=== PATIENT | female | born 1965 | race Caucasian/White ===

== ENCOUNTER → 2022-10-01 11:45 | Outpatient (BNVA) | payer BC, MEDICAID, SELFPAY | PROVIDERS: PCP Family Medicine; Visit Provider Family Medicine | DX: F31.9 Bipolar disorder, unspecified (principal); M54.31 Sciatica, right side; M54.32 Sciatica, left side; Z11.59 Encounter for screening for other viral diseases; Z11.4 Encounter for screening for human immunodeficiency virus [HIV] | CPT/HCPCS: 80053; 80061; 83036; 84443; 85025; 86038; 86803; 87806 ==

== ENCOUNTER → 2022-11-10 08:25 | Outpatient (BNVA) | payer BC, MEDICAID, SELFPAY | PROVIDERS: PCP Family Medicine; Visit Provider Internal Medicine Rheumatology | DX: Z79.899 Other long term (current) drug therapy (principal); M19.90 Unspecified osteoarthritis, unspecified site; R10.9 Unspecified abdominal pain; M45.6 Ankylosing spondylitis lumbar region; Z11.59 Encounter for screening for other viral diseases; M54.41 Lumbago with sciatica, right side; K12.0 Recurrent oral aphthae; M54.42 Lumbago with sciatica, left side; G89.29 Other chronic pain; L71.0 Perioral dermatitis | CPT/HCPCS: 36415; 73130; 73562; 73630; 82607; 82728; 82746; 85651; 86140; 86200; 86431; 86480; 86704; 86812; 87340 ==

== ENCOUNTER → 2022-11-24 09:48 | Outpatient (BNVA) | payer BC, MEDICAID, SELFPAY | PROVIDERS: PCP Family Medicine; Visit Provider Family Medicine | DX: R79.89 Other specified abnormal findings of blood chemistry (principal) | CPT/HCPCS: 82306; 84439; 84443 ==

== ENCOUNTER 2022-12-01 06:08 | Outpatient (CLI) | payer BC, MEDICAID, SELFPAY ==
--- NOTE | 2022-12-01 06:30 | US_ITS ---
WS: [id number] ULTRASOUND ABDOMEN CLINICAL INFORMATION: R10.9 - Unspecified abdominal pain COMPARISON: None. FINDINGS: Liver Size: Upper limits of normal Craniocaudal length: 14.9 cm. Echogenicity: Normal. Surface nodularity: None. Mass (size and location): Echogenic lesion in the RIGHT hepatic lobe measuring 1.2 x 1.8 x 0.7 cm lik nikky incidental cavernous hemangioma. Bile ducts Intrahepatic ducts: Normal. Common bile duct diameter: 1.0 cm dilated. Gallbladder Removed Pancreas Not well seen Spleen Splenomegaly: None. Craniocaudal length: 11.2 cm. Right kidney: A few punctate echogenic foci may represent tiny calculi. No evidence of obstruction. Hydronephrosis: None. Size: 10.2 cm x 5.5 cm x 4.3 cm Left kidney: A few punctate echogenic foci may represent tiny calculi. No evidence of obstruction. Hydronephrosis: None. Size: 10.1 cm x 5.1 cm x 5.1 cm. Abdominal aorta and IVC Visualized portions are normal. Ascites: None. US/US abdomen complete* [id number] IMPRESSION: 1. Prior cholecystectomy. 2. Dilated common bile duct measuring 10 mm. This can be further evaluated wit h MRCP to assess for choledocholithiasis. Correlation for biliary function stud ies. 3. No hydronephrosis in either kidney. 4. A few tiny punctate echogenic foci in the renal parenchyma may represent no nobstructing calculi. This can be further evaluated with CT renal stone protoco l if indicated. 5. Normal spleen. 6. Liver size upper limits of normal. 7. Echogenic lesion in the RIGHT hepatic lobe measuring 1.2 x 1.8 x 0.7 cm lik nikky incidental cavernous hemangioma.
== END 2022-12-01 06:09 | disposition home or self-care (01) ==
LOC: RAD 06:09
PROVIDERS: PCP Family Medicine; Visit Provider Internal Medicine Rheumatology
DX: K83.8 Other specified diseases of biliary tract (principal); R10.9 Unspecified abdominal pain
CPT/HCPCS: 36415; 73130; 73562; 73630; 76700; 82607; 82728; 82746; 85651; 86140; 86200; 86431; 86480; 86704; 86812; 87340

== ENCOUNTER 2022-12-06 12:32 | Outpatient (CLI) | payer BC, MEDICAID, SELFPAY ==
--- NOTE | 2022-12-06 12:46 | MR_ITS ---
WS: [id number] MRI CERVICAL SPINE NONCONTRAST TECHNIQUE: Sagittal T1, T2 and STIR imaging. Axial T2, gradient, and fiesta imaging. CLINICAL INFORMATION: SPONDYLOSIS, CERVICAL REGION COMPARISON: None. FINDINGS: Mild cervical curve. Disc bulging worse at C5-C6 with a small central protrusion with slight indentat ion on cervical cord. Cord signal is normal. C2-C3: Normal. C3-C4: Mild facet arthropathy. Mild LEFT and no significant RIGHT foraminal narrowing. Spinal canal i s patent. C4-C5: No significant disc bulging. Mild facet arthropathy. Mild LEFT foraminal narrowing. C5-C6: Shallow central disc protrusion with small annular fissure. Indentation on cervical cord with mild to moderate central canal stenosis. Moderate LEFT greater than RIGHT bony foraminal narrowing. M ild to moderate facet arthropathy. C6-C7: Mild disc osteophytic ridging. Mild bilateral bony foraminal narrowing. Mild facet arthropathy . Spinal canal is patent. C7-T1: Osteophytic ridging. Moderate LEFT and no significant RIGHT foraminal narrowing. Spinal canal is patent. T1-T2: Osteophytic ridging. Moderate LEFT and mild RIGHT bony foraminal narrowing. Mild facet arthrop athy. Visualized brain stem structures: Normal. Prevertebral soft tissues: Normal. MR/MR cervical spin wo con* [id number] IMPRESSION: 1. Prominent central disc protrusion C5-C6 with indentation on the cervical co rd with mild to moderate central canal stenosis. Small annular fissure. 2. Moderate bilateral C5-C6 bony foraminal narrowing LEFT greater than RIGHT. 3. Moderate LEFT C7-T1 and T1-T2 bony foraminal narrowing.
--- NOTE | 2022-12-06 12:47 | MR_ITS ---
WS: [id number] MRI LUMBAR SPINE NONCONTRAST TECHNIQUE: Sagittal T1, T2 and STIR imaging. Axial T1 and T2 imaging. CLINICAL INFORMATION: SPONDYLOSIS, LUMBAR COMPARISON: None. FINDINGS: Mild lumbar curve. No acute compression. No high-grade central canal stenosis. Mild disc bulging wors e L5-S1. L1-L2: Mild facet arthropathy. Spinal canal and foramen are patent. L2-L3: Mild facet arthropathy. Spinal canal and foramen are patent. L3-L4: Mild annular bulging with slight effacement of the ventral thecal sac. Mild bilateral foramina l narrowing. Mild facet arthropathy. Spinal canal is patent. L4-L5: Mild annular bulging with slight impingement on the traversing RIGHT greater than LEFT L5 nerv e roots. Mild RIGHT foraminal narrowing. Mild facet arthropathy. L5-S1: Shallow central disc protrusion with mild central canal stenosis. Slight impingement traversin g LEFT greater than RIGHT S1 nerve roots. Mild facet arthropathy. Tiny annular fissure. Mild RIGHT fo raminal narrowing. Visualized pelvic bony structures: Normal. Paravertebral soft tissues: Normal. Small central disc protrusion the cervical spine timber robber imaging at C5-C6 with slight contact of the ce rvical cord. MR/MR lumbar spine wo con* [id number] IMPRESSION: 1. Mild lumbar curve. No acute compression. 2. Shallow central disc protrusion L5-S1 with a small annular fissure. Slight impingement traversing LEFT greater than RIGHT S1 nerve roots. 3. Mild RIGHT L5-S1 foraminal narrowing. 4. Mild bilateral L3-L4 foraminal narrowing with small foraminal protrusions. 5. Mild RIGHT greater than LEFT L4-L5 foraminal narrowing. 6. Small central disc protrusion the cervical spine timber robber imaging at C5-C6 wit h slight contact of the cervical cord.
== END 2022-12-06 12:33 | disposition home or self-care (01) ==
LOC: RAD 12:32
PROVIDERS: PCP Family Medicine; Visit Provider Anesthesiology
DX: M47.812 Spondylosis without myelopathy or radiculopathy, cervical region (principal); M50.30 Other cervical disc degeneration, unspecified cervical region; M51.37 Other intervertebral disc degeneration, lumbosacral region; M47.27 Other spondylosis with radiculopathy, lumbosacral region
CPT/HCPCS: 72141; 72148

== ENCOUNTER 2022-12-23 14:41 | Outpatient (CLI) | payer BC, MEDICAID, SELFPAY ==
--- NOTE | 2022-12-23 15:15 | MR_ITS ---
WS: [id number] MRI HEAD WITH CONTRAST TECHNIQUE: Sagittal T1, T2 axial, T2 axial FLAIR, axial susceptibility weighted imaging, axial diffus ion weighted images, and coronal T2 images were obtained. Pre and post-T1 axial and post T1 coronal i mages. ADC and FSPGR images. CLINICAL INFORMATION: R51.9 - Headache, unspecified COMPARISON: None. FINDINGS: No evidence of restricted diffusion to suggest acute ischemia. Ventricular system and basal cisterns are patent. No suspicious intracranial signal abnormalities. Normal yu-white differentiation. No si gnificant parenchymal volume loss. Normal posterior fossa. Normal vascular flow voids at the skull base. No extra-axial fluid collection s. No evidence of mass or mass effect. Paranasal sinuses and mastoid air cells well aerated. Normal p osterior nasopharynx and parapharyngeal fat. No hemosiderin on the susceptibly weighted images. Normal optic chiasm and pituitary infundibulum. Proximal 7th and 8th cranial nerves appear normal. No rmal cavernous sinuses and Meckel's cave. Temporal lobes and hippocampal formations are normal in aleksey earance. No abnormal gadolinium enhancement. Incidental benign enhancing venous angioma in the LEFT f rontal lobe. Normal visualized dural venous sinuses. MR/MR head wo/w con [id number] IMPRESSION: 1. No evidence of restricted diffusion to suggest acute ischemia. 2. No suspicious intracranial signal abnormalities. No significant parenchymal volume loss. 3. No hemosiderin on susceptibly weighted images. 4. Incidental benign venous angioma LEFT frontal lobe. 5. No abnormal areas of enhancement. 6. No other suspicious findings.
== END 2022-12-23 14:42 | disposition home or self-care (01) ==
PROVIDERS: PCP Family Medicine; Visit Provider Psychiatry & Neurology Neurology
DX: R51.9 Headache, unspecified (principal); D18.02 Hemangioma of intracranial structures
CPT/HCPCS: 70553; A9577

== ENCOUNTER → 2023-01-19 12:05 | Outpatient (BNVA) | payer BC, MEDICAID, SELFPAY | PROVIDERS: PCP Family Medicine; Visit Provider Family Medicine | DX: R79.89 Other specified abnormal findings of blood chemistry (principal); K21.9 Gastro-esophageal reflux disease without esophagitis; M54.31 Sciatica, right side; M54.32 Sciatica, left side; E83.52 Hypercalcemia | CPT/HCPCS: 80048; 82607; 82746; 83690; 83735; 84100; 84439; 84443 ==

== ENCOUNTER → 2023-02-15 11:22 | Outpatient (BNVA) | payer BC, MEDICAID, SELFPAY | PROVIDERS: PCP Family Medicine; Visit Provider Family Medicine | DX: R39.11 Hesitancy of micturition (principal) | CPT/HCPCS: 81000; 87086 ==

== ENCOUNTER 2023-03-22 15:37 | Outpatient (CLI) | payer MEDICAID, SELFPAY ==
--- NOTE | 2023-03-22 16:03 | XRR_ITS ---
PROCEDURE INFORMATION: Exam: XR Right Tibia and Fibula Exam date and time: 03/22/2023 4:10 PM Age: 57 years old Clinical indication: Other: Right lower leg nodule TECHNIQUE: Imaging protocol: Radiologic exam of the right tibia and fibula. Views: 2 views. COMPARISON: CR XR foot RT min 3V* [id number] 11/10/2022 10:51 AM FINDINGS: Bones/joints: Normal. Soft tissues: Normal. XR/XR tibia fibula RT 2V [id number] IMPRESSION: No acute findings.
[2023-03-22 16:22] LABS: Eosinophils # 0.2 10^3/uL (0.0-0.8); Eosinophils % 4.3 %; Hematocrit 38.8 % (36-47); Lymphocytes # 1.5 10^3/uL (0.8-4.8); Lymphocytes % 38.1 %; Mean Corpuscular HGB Conc 31.4 g/dL (30-55); Mean Corpuscular Hemoglobin 27.9 pg (27-33); Mean Corpuscular Volume 88.8 fl (85-98); Mean Platelet Volume 11.1 fL (7.4-10.4); Monocytes # 0.3 10^3/uL (0.2-0.9); Monocytes % 8.6 %; Neutrophils # 1.89 10^3/uL (1.8-7.7); Neutrophils % 47.7 %; Nucleated Red Blood Cells % 0 %; Platelet Count 177 10^3/cmm (157-399); Red Blood Count 4.37 10^6/uL (3.85-5.65); Red Cell Distribution Width 13.7 % (12.1-15.1); White Blood Count 3.96 10^3/uL (3.29-11.43)
[2023-03-22 16:38] LABS: Alanine Aminotransferase 10 U/L (0-33); Albumin Level 3.7 g/dL (3.5-5.2); Alkaline Phosphatase 114 U/L (35-105); Aspartate Amino Transferase 17 U/L (0-32); Globulin 2.5 g/dL (1.3-4.6); Total Bilirubin 0.3 mg/dL (0.15-1.2); Total Protein 6.2 g/dL (6.6-8.7)
== END 2023-03-22 15:38 | disposition home or self-care (01) ==
PROVIDERS: Absent Provider Internal Medicine Rheumatology; PCP Family Medicine; Visit Provider Family Medicine
DX: R22.41 Localized swelling, mass and lump, right lower limb (principal); M19.90 Unspecified osteoarthritis, unspecified site; Z79.899 Other long term (current) drug therapy
CPT/HCPCS: 36415; 73590; 80076; 82565; 83690; 84439; 84443; 85025; 86140

== ENCOUNTER → 2023-05-05 08:51 | Outpatient (BNVA) | payer BC, MEDICAID, SELFPAY | PROVIDERS: PCP Family Medicine; Visit Provider Nurse Practitioner Family | DX: R10.9 Unspecified abdominal pain (principal) | CPT/HCPCS: 81000 ==

== ENCOUNTER → 2023-08-29 14:29 | Outpatient (BNVA) | payer BC, SELFPAY | PROVIDERS: PCP Family Medicine; Visit Provider Family Medicine | DX: Z79.899 Other long term (current) drug therapy (principal); R79.89 Other specified abnormal findings of blood chemistry; E03.9 Hypothyroidism, unspecified; M19.90 Unspecified osteoarthritis, unspecified site; K90.9 Intestinal malabsorption, unspecified; E55.9 Vitamin D deficiency, unspecified | CPT/HCPCS: 80053; 80061; 82306; 82607; 82728; 82746; 83036; 83540; 84439; 84443; 85025; 85651 ==

== ENCOUNTER → 2023-10-27 10:59 | Outpatient (BNVA) | payer BC, MEDICAID, SELFPAY | PROVIDERS: PCP Family Medicine; Referring Provider Psychiatry & Neurology Neurology; Visit Provider Student in an Organized Health Care Education/Training Program | DX: G56.03 Carpal tunnel syndrome, bilateral upper limbs; G56.22 Lesion of ulnar nerve, left upper limb | CPT/HCPCS: 73110 ==

== ENCOUNTER 2023-11-07 08:56 | Day surgery (SDC) | payer MEDICARE, MEDICAID, SELFPAY ==
[2023-11-07] VITALS (8 sets, daily range): BP systolic 111–163; BP diastolic 71–108; PULSE 80–111; RESP 12–18; TEMP 36.4–36.8; O2SAT 91–98; BMI 30.7
[2023-11-07] MEDS: sodium chloride 0.9% 1,000 ML 30 ML IV (09:19)
[2023-11-07] MEDS: acetaminophen 1,000 MG/100 ML PIGGYBACK 400 MG IV (09:44)
[2023-11-07] MEDS: ketorolac 30 mg/mL INJ IVP (09:45)
[2023-11-07] MEDS: scopolamine 1.5 Patch 1 PATCH TRANSDERMA (09:51)
--- NOTE | 2023-11-07 10:00 | ANES.PREANE2 ---
Pre-Anesthetic Assessment Height/Weight: Height 1.65 m Weight 83.915 kg Temp Pulse Resp BP Pulse Ox O2 Del Method 98.2 F 111 H 18 111/72 97 Room Air 11/07/23 09:19 11/07/23 09:19 11/07/23 09:19 11/07/23 09:19 11/07/23 09:19 11/07/23 09:20 Operation Date: 11/07/23 13:55 Proposed Procedures p Carpal Tunnel Release(Right) - Kapil Marin DO Last intake: Intake Last Liquid Date 11/06/23 Last Liquid Time 19:00 Last Solid Date 11/06/23 Last Solid Time 19:00 Social No tobacco Exam alert, oriented x 3, clear to auscultation bilaterally and regular rate & rhythm Airway Submandibular: within normal limits Cervical ROM: within normal limits Mallampati: Class I Dentition: full None reported GI None reported Musc/skel Lower Back Pain and Osteoarthritis/DJD Anesthetic Plan ASA status: 3 Anesthesia: MAC Medications/Allergies Home Medications Medication Instructions Recorded Confirmed Last Taken Type buprenorphine HCl 8 mg sublingual 8 mg sublingual DAILY 09/24/22 11/07/23 11/07/23 History tablet topiramate 100 mg tablet 100 mg PO BID #60 tabs 10/12/22 11/07/23 11/07/23 Rx valbenazine 80 mg capsule 80 mg PO DAILY 11/01/22 11/07/23 11/07/23 History (Ingrezza) cholecalciferol (vitamin D3) 25 25 mcg PO DAILY #90 caps 12/02/22 11/07/23 11/06/23 Rx mcg (1,000 unit) capsule gabapentin 300 mg capsule 300 mg PO TID 01/18/23 11/07/23 11/07/23 History sucralfate 1 gram tablet (Carafate) 1 g PO BID #60 tabs 01/19/23 11/07/23 Unknown Rx valacyclovir 500 mg tablet 500 mg PO BID #20 tabs 03/22/23 11/07/23 Unknown Rx (Valtrex) cyclobenzaprine 10 mg tablet 10 mg PO TID 05/05/23 11/07/23 11/07/23 History leflunomide 20 mg tablet 20 mg PO DAILY #90 tabs 08/04/23 11/07/2324 Rx cariprazine 3 mg capsule (Vraylar) 3 mg PO DAILY #30 caps 08/08/23 11/07/23 11/06/23 Rx sulfasalazine 500 mg tablet 1 g (2 x 500 mg) PO BID #120 tabs 08/23/23 11/07/23 11/07/23 Rx atogepant 60 mg tablet (Qulipta) 60 mg PO DAILY #60 tabs 09/21/23 11/04/23 11/06/23 Rx diclofenac sodium 75 mg 75 mg PO BID PRN pain #60 tabs 11/04/23 11/07/23 11/04/23 Rx tablet,delayed release duloxetine 60 mg capsule,delayed 60 mg PO DAILY 11/04/23 11/07/23 11/06/23 History release levothyroxine 75 mcg tablet 75 mcg PO DAILY 11/04/23 11/07/23 11/07/23 History ondansetron HCl 8 mg tablet 8 mg PO DAILY 11/04/23 11/07/23 11/07/23 History pantoprazole 40 mg tablet,delayed 40 mg PO DAILY 11/04/23 11/07/23 11/07/23 History release prednisone 20 mg tablet See Rx Instructions .Route .COMPLEX 11/04/23 11/07/23 11/06/23 History ondansetron 4 mg disintegrating 4 mg PO Q8H PRN nausea and 11/07/23 Unknown Rx tablet vomiting 3 days #9 tabs tramadol 50 mg tablet 50 mg PO Q6H PRN pain #20 tabs 11/07/23 Unknown Rx Allergies Allergy/AdvReac Type Severity Reaction Status Date / Time azithromycin Allergy Mild ALGY-Rash Verified 11/04/23 12:42 mirtazapine [From Remeron] Allergy Mild ALGY-Rash Verified 11/04/23 12:42 tolmetin Allergy ALGY-Rash Verified 11/04/23 12:42 Current Medications Generic Name Dose Route Start Last Admin Trade Name Freq PRN Reason Stop Dose Admin Sodium Chloride 1,000 mls @ 30 mls/hr 11/07/23 09:15 11/07/23 09:19 Sodium Chloride 0.9% IV 11/08/23 09:14 30 mls/hr .Q24H KATH Administration PFSH Anesthesia Medical History Chronic pancreatitis Seronegative rheumatoid arthritis of both hands MDD (major depressive disorder) POD (perioral dermatitis) Inflammatory arthritis Depression with anxiety Joint pain High risk medication use Psychiatric care Surgical History History of hysterectomy History of cholecystectomy H/O gastric bypass History of shoulder surgery bilateral History of tonsillectomy and adenoidectomy Family History Mother Cancer Breast Cancer Migraines Grandmother Cancer Colon Other Chronic kidney disease (CKD) Diabetes Hyperlipidemia Hypertension Lung disease Rheumatoid arthritis Stroke Denies family history of Lupus CAD (coronary artery disease) Psoriatic arthritis Social History Smoking and tobacco/nicotine status: never used tobacco/nicotine Second hand smoke exposure: No Alcohol intake: never Substance/Drug Use: current Substance/Drug use frequency: few times a week Other substance/drug use details: Gummies Female Reproductive History Spontaneous abortions: No Data Anesthesia Cardiac Studies: No Data to Display
--- NOTE | 2023-11-07 10:51 | W.PM.OPSUD ---
Surgery/Procedure H&P Update DATE OF PROCEDURE: November 07, 2023 DATE H&P PERFORMED: 10/26/23 H&P UPDATE INFORMATION: I have reviewed H&P completed within last 30 days, I have examined patient prior to procedure and No changes to prior documentation PREOP DIAGNOSIS: Right carpal tunnel syndrome PRIMARY INDICATION FOR PROCEDURE: Right carpal tunnel syndrome PLANNED PROCEDURE: Operation Date: 11/07/23 13:55 Proposed Procedures p Carpal Tunnel Release(Right) - Kapil Marin DO
[2023-11-07] MEDS: ceFAZolin 2,000 MG in sodium chloride 0.9% (plus) 50 ML 100 MG IV (11:23)
[2023-11-07] MEDS: lidocaine-epi 1% PF 1:200,000 30 mL SDV INJECTION (11:40)
[2023-11-07] MEDS: ROPivacaine 0.5% SDV 30 mL 150 MG INJECTION (11:40)
--- NOTE | 2023-11-07 11:58 | P.BOP_ITS ---
Date of Procedure: [Nov 07 2023] Surgeon: [Dr. Marin DO] Account Services Specialist(s): [Claudio Marin PA-C] Procedure(s) performed: [Right carpal tunnel release] Findings of the procedure(s): [Right carpal tunnel syndrome] Estimated blood loss: [2 mL] Specimen(s) removed: [n/a] Post-operative diagnosis: [Right carpal tunnel syndrome]
--- NOTE | 2023-11-07 12:04 | P.OP_ITS ---
Operative Report Date of procedure: November 07, 2023 Surgeon: Kapil Marin DO Step Down Specialist: Claudio Marin PA-C: PA was necessary for assistance in this case with hand positioning to execute the procedure, retraction and protection of neurovascular structures as well as to assist with wound closure and dressing application. Procedure: Preoperative diagnosis: Right carpal tunnel syndrome post-op diagnosis: Same Procedure done: 1.?Right carpal tunnel release Surgeon: Kapil Marin DO Anesthesia: MAC (Local) Estimated blood?loss: [2mL Tourniquet time 4 minutes IV fluids: See anesthesia record Complications: None Findings: See operative report narrative Condition: stable Disposition: same day Brief History: Patient is a pleasant 58 year-old female?with?Right carpal tunnel syndrome.? Patient has been worked up in the outpatient setting findings and physical examination consistent with this.? Patient nerve?conduction studies consistent with carpal tunnel syndrome.? We detailed?out?patient's risk benefits complication alternatives with surgical and?nonsurgical treatment options. Through shared decision making, patient?agrees to proceed with surgical intervention of the?Right carpal tunnel release .? Patient understands and agrees with current plan.? All questions answered.? Patient elects to proceed with surgical intervention with carpal tunnel release. Procedure: Patient seen and evaluated in the preoperative holding area.? Consent was reviewed and signed with patient.? Correct extremity was marked.? Patient was seen evaluated by the anesthesia department once cleared for surgery was brought back to the operative suite.? Patient was kept on [facility] in supine position all bony prominences were well-padded patient properly secured to the bed.??Right upper extremity was then placed onto an armboard.? A nonsterile tourniquet was applied to the?Right upper arm.? Patient underwent anesthesia per the anesthesia department.? Patient's?Right upper extremity was then prepped and draped in standard orthopedic fashion.? Final timeout performed.? Patient received appropriate preoperative antibiotics. Under sterile aseptic technique patient received?local anesthesia over the preplanned carpal tunnel incision site. Esmarch was used to exsanguinate the?Right upper extremity and tourniquet was insufflated to 250 mmHg. A standard mini open?Right carpal tunnel incision was made.? Starting distally at Grey's cardinal?line in?line with the fourth ray extending proximally distal to the wrist crease centered over the carpal tunnel.? Sharp scalpel incision was made through skin and subcutaneous tissue.? Self-retaining retractor was placed and the palmar fascia was identified.? This was then split?longitudinally and direct visualization of the transverse carpal?ligament was then made.? I then utilizing scalpel feathered through the transverse carpal?ligament until I entered the floor of the transverse carpal tunne l?ligament into the carpal tunnel.? Next I switched to dissection scissors and completed my release of the transverse carpal?ligament distally with care to protect the recurrent motor branch.? I completely released into the palmar fat and until no entrapment was noted distally.? Care was made to protect the superficial palmar arch during my distal dissection.? Nasal speculum placed proximally to protect soft tissue on top of the transverse carpal ligament for direct visualization. Next I then placed a [place] underneath the transverse carpal tunnel?ligament to protect the contents of the carpal tunnel and subsequently utilizing dissection scissors under?loupe magnification completely released the transverse carpal?ligament proximally into the median antebrachial fascia.? Care was made to protect the palmar cutaneous branch by keeping my scissors curved ulnarly.? Once completely released, I then placed my [place] and had appropriate decompression of the carpal tunnel proximally as well as distally.? I then inspected the contents of the carpal tunnel which showed an hourglass shape of the median nerve showing its compression.? No masses were noted.? Tendons appeared healthy.? Wound was then thoroughly irrigated.? Tourniquet deflated.? Hemostasis satisfactory with bipolar electrocautery.? I then closed the incision with interrupted nylon stitches.? Xeroform 4 x 4's and a bulky soft dressing was applied to the?Right upper extremity.? Patient was then awakened from anesthesia and taken to PACU in stable condition.? Patient tolerated procedure without complications. Disposition: Patient taken to PACU in stable condition recovering well.? Dressing clean dry and intact.? Patient will receive appropriate discharge instructions as well as pain medication postoperatively.? Patient to follow-up with me in the office in 2 weeks.? They understand they may be weightbearing as tolerated to the?Right hand.? Patient should keep incision clean dry and intact.? Patient understands if any questions or concerns may contact the office.
--- NOTE | 2023-11-07 13:43 | ANE.PACU2 ---
Inpatient post-anesthesia follow up: Vital signs: Temperature 98.0 F Pulse Rate 80 Respiratory Rate 18 Blood Pressure 161/108 Pulse Oximetry 95 Oxygen Delivery Me thod Room Air Oxygen Flow Rate 6 Fraction of Inspir ed Oxygen Hydration adequate: Yes Nausea and vomiting: No Pain level: controlled Mental status: Baseline Additional Comments: no apparent anesthetic complications noted
== END 2023-11-07 13:00 | disposition home or self-care (01) ==
PROVIDERS: PCP Family Medicine; Visit Provider Student in an Organized Health Care Education/Training Program
PROC: (CPT 64721; principal; 2023-11-07 13:45)
DX: G56.01 Carpal tunnel syndrome, right upper limb (principal)
CPT/HCPCS: 64721; J0131; J0690; J1885; J2405; J2704; J2795; J3010; J7030

== ENCOUNTER 2024-01-17 08:17 | Outpatient (CLI) | payer MEDICARE, MEDICAID, SELFPAY ==
[2024-01-17 08:50] LABS: Basophils # 0.1 10^3/uL (0.0-0.1); Basophils % 1.2 %; Eosinophils # 0.2 10^3/uL (0.0-0.8); Eosinophils % 4.4 %; Hematocrit 30.8 % (36-47); Lymphocytes # 1.4 10^3/uL (0.8-4.8); Mean Corpuscular HGB Conc 32.1 g/dL (30-55); Mean Corpuscular Hemoglobin 39.6 pg (27-33); Mean Corpuscular Volume 123.2 fl (85-98); Mean Platelet Volume 10.3 fL (7.4-10.4); Monocytes # 0.3 10^3/uL (0.2-0.9); Monocytes % 7.3 %; Neutrophils # 2.13 10^3/uL (1.8-7.7); Neutrophils % 51.9 %; Nucleated Red Blood Cells % 0 %; Platelet Count 197 10^3/cmm (157-399); Red Cell Distribution Width 16.3 % (12.1-15.1); White Blood Count 4.11 10^3/uL (3.29-11.43)
[2024-01-17 09:13] LABS: Alanine Aminotransferase < 5 U/L (0-33); Albumin Level 3.4 g/dL (3.5-5.2); Alkaline Phosphatase 113 U/L (35-105); Aspartate Amino Transferase 12 U/L (0-32); Globulin 2.4 g/dL (1.3-4.6); Glomerular Filtration Rate 74.2 mL/min (90-130); Total Bilirubin 0.5 mg/dL (0.15-1.2); Total Protein 5.8 g/dL (6.6-8.7)
== END 2024-01-17 08:18 | disposition home or self-care (01) ==
LOC: LAB 08:20
PROVIDERS: PCP Family Medicine; Visit Provider Internal Medicine Rheumatology
DX: Z79.899 Other long term (current) drug therapy (principal); M06.041 Rheumatoid arthritis without rheumatoid factor, right hand; M06.042 Rheumatoid arthritis without rheumatoid factor, left hand
CPT/HCPCS: 36415; 80076; 82565; 85025; 86140

== ENCOUNTER → 2024-01-23 11:38 | Outpatient (BNVA) | payer MEDICARE, MEDICAID, SELFPAY | PROVIDERS: PCP Family Medicine; Visit Provider Internal Medicine Rheumatology | DX: M54.41 Lumbago with sciatica, right side (principal); M54.42 Lumbago with sciatica, left side; G89.29 Other chronic pain; L71.0 Perioral dermatitis; M06.041 Rheumatoid arthritis without rheumatoid factor, right hand; M06.042 Rheumatoid arthritis without rheumatoid factor, left hand; R76.8 Other specified abnormal immunological findings in serum; M79.7 Fibromyalgia; R53.82 Chronic fatigue, unspecified; Z11.1 Encounter for screening for respiratory tuberculosis; Z11.59 Encounter for screening for other viral diseases; Z79.899 Other long term (current) drug therapy | CPT/HCPCS: 99214 ==

== ENCOUNTER → 2024-02-07 15:32 | Outpatient (BNVA) | payer MEDICARE, SELFPAY | PROVIDERS: PCP Family Medicine; Visit Provider Family Medicine | DX: E03.9 Hypothyroidism, unspecified (principal); K90.9 Intestinal malabsorption, unspecified; Z79.899 Other long term (current) drug therapy; R79.89 Other specified abnormal findings of blood chemistry | CPT/HCPCS: 82533; 82728; 83540; 84439; 84443; 85025 ==

== ENCOUNTER → 2024-02-16 12:35 | Outpatient (BNVA) | payer MEDICARE, OTHER, SELFPAY | PROVIDERS: PCP Family Medicine; Referring Provider Family Medicine; Visit Provider Student in an Organized Health Care Education/Training Program | DX: D64.9 Anemia, unspecified (principal); R10.13 Epigastric pain; R13.10 Dysphagia, unspecified; K21.9 Gastro-esophageal reflux disease without esophagitis; Z90.49 Acquired absence of other specified parts of digestive tract; Z80.0 Family history of malignant neoplasm of digestive organs | CPT/HCPCS: 99204 ==

== ENCOUNTER → 2024-02-21 14:55 | Outpatient (BNVA) | payer MEDICARE, OTHER, SELFPAY | PROVIDERS: PCP Family Medicine; Visit Provider Family Medicine | DX: K90.9 Intestinal malabsorption, unspecified (principal); G24.01 Drug induced subacute dyskinesia | CPT/HCPCS: 82607; 82746; 85025 ==

== ENCOUNTER 2024-02-25 15:30 | Emergency (ER) | payer MEDICARE, MEDICAID, SELFPAY ==
[2024-02-25 15:49] VITALS: BP 116/83; PULSE 93; RESP 18; TEMP 36.8; O2SAT 98; BMI 29.4
--- NOTE | 2024-02-25 16:04 | CTR_ITS ---
PROCEDURE INFORMATION: Exam: CT Abdomen And Pelvis With Contrast Exam date and time: 02/25/2024 5:02 PM Age: 58 years old Clinical indication: Abdominal pain; Generalized; Prior surgery; Surgery date: 6+ months; Surgery type: Gastric bypass; Additional info: Abd pain TECHNIQUE: Imaging protocol: Computed tomography of the abdomen and pelvis with contrast. Radiation optimization: All CT scans at this facility use at least one of these dose optimization techniques: automated exposure control; mA and/or kV adjustment per patient size (includes targeted exams where dose is matched to clinical indication); or iterative reconstruction. Contrast material: OMNI 350; Contrast volume: 100 ml; Contrast route: INTRAVENOUS (IV); COMPARISON: US abdomen complete* [id number] 12/01/2022 6:23 AM RADIATION DOSE METRICS: Total DLP (mGy-cm): 721.43 FINDINGS: Lungs: Subsegmental bibasilar atelectasis. The visualized lung bases are otherwise grossly clear. Diaphragm: No evidence of diaphragmatic defect. Liver: No focal hepatic lesion. Gallbladder and biliary ducts: Status post cholecystectomy. Mild-moderate intrahepatic biliary dilatation. There is moderate extrahepatic biliary dilatation, frequently seen post cholecystectomy. CBD measures up to 14 mm. No evidence of intraductal stone. Pancreas: Scribed peg tube Spleen: Unremarkable. Adrenal glands: Unremarkable. Kidneys and ureters: Multiple nonobstructive renal stones bilaterally measuring up to 5 mm on the left. Otherwise no renal parenchymal abnormality. No hydronephrosis or ureteral stone. Stomach and bowel: No evidence of bowel obstruction or perienteric inflammatory changes. Postsurgical changes compatible with prior Titi-en-Y gastric bypass. Appendix: The appendix is not visualized, however there are no findings to suggest appendicitis. Intraperitoneal space: No evidence of free air or fluid collection. Vasculature: No aneurysmal dilatation or dissection of the abdominal aorta. The celiac trunk, SMA and GUILLAUME are grossly patent. No evidence of IVC thrombus. The portal vein, SMV and splenic veins are grossly patent. Lymph nodes: No adenopathy. Urinary bladder: Grossly unremarkable. Reproductive: Prior hysterectomy. Bones/joints: No evidence of acute fracture or aggressive osseous lesion. Soft tissues: No evidence of fluid collection or hematoma in the superficial soft tissues. Surgical metallic densities noted in the pelvis. Correlation with procedural history is recommended. CT/CT abdomen pelvis w con* [id number] IMPRESSION: 1. No evidence of acute abnormality in the abdomen or pelvis. 2. Prior cholecystectomy with mild-moderate intrahepatic and moderate extrahepatic biliary dilatation. Consider correlation with biliary labs. 3. Nonobstructive renal stones.
--- NOTE | 2024-02-25 16:06 | ED_ITS ---
Documented by User: Eris Sanches DO 02/27/24 05:54 HPI - GI Bleed 2 General: Chief complaint: GI Bleed Stated complaint: stomach pain, black stools, losing blood Time Seen by Provider: 02/25/24 16:03 History of Present Illness: 58-year-old female presents to the [facility] ency room with complaints of weakness and shortness of breath dark stools this been going on for the last week. She complaining of stomach pain as well. Patient has a history of a Titi-en-Y surgery that was done a couple of decades ago in [place]. While she was still in [place] she did have a upper GI bleed along one of her anastomosis. She did not require surgery at that time was treated medically. She denies any hematochezia or hematemesis. Associated symptoms: Reports abdominal pain; Denies chills, fever(s) or rash Related Data Home Medications Medication Instructions Recorded Confirmed buprenorphine HCl 8 mg sublingual 8 mg sublingual DAILY 09/24/22 02/21/24 tablet cyclobenzaprine 10 mg tablet 10 mg PO TID 05/05/23 02/21/24 ondansetron HCl 8 mg tablet 8 mg PO DAILY 11/04/23 02/21/24 prednisone 20 mg tablet See Rx Instructions .Route .COMPLEX 11/04/23 02/21/24 gabapentin 300 mg capsule 300 mg PO BID 01/23/24 02/21/24 Previous Rx's Medication Instructions Recorded topiramate 100 mg tablet 100 mg PO BID #60 tabs 10/12/22 cholecalciferol (vitamin D3) 25 25 mcg PO DAILY #90 caps 12/02/22 mcg (1,000 unit) capsule sucralfate 1 gram tablet (Carafate) 1 g PO BID #60 tabs 01/19/23 valacyclovir 500 mg tablet 500 mg PO BID #20 tabs 03/22/23 (Valtrex) atogepant 60 mg tablet (Qulipta) 60 mg PO DAILY #60 tabs 09/21/23 levothyroxine 75 mcg tablet See Rx Instructions .Route 01/13/24 .COMPLEX #60 tabs pantoprazole 40 mg tablet,delayed See Rx Instructions .Route 01/13/24 release .COMPLEX #180 tabs diclofenac sodium 75 mg 75 mg PO BID PRN pain #60 tabs 01/20/24 tablet,delayed release leflunomide 20 mg tablet 20 mg PO DAILY #90 tabs 01/23/24 prednisone 5 mg tablet 5 mg PO DAILY #90 tabs 01/23/24 sulfasalazine 500 mg tablet 1 g (2 x 500 mg) PO BID #120 tabs 01/23/24 valbenazine 80 mg capsule 80 mg PO DAILY #30 caps 02/01/24 (Ingrezza) cariprazine 1.5 mg capsule 1.5 mg PO DAILY #30 caps 02/06/24 (Vraylar) duloxetine 60 mg capsule,delayed 60 mg PO DAILY #30 caps 02/06/24 release cyanocobalamin (vitamin B-12) 100 mcg (0.1 mL) IM DAILY #10 mL 02/21/24 1,000 mcg/mL injection solution syringe with needle, safety 3 mL #100 ea 02/21/24 25 gauge x 5/8 (Monoject Safety Syringes) Allergies Allergy/AdvReac Type Severity Reaction Status Date / Time azithromycin Allergy Mild ALGY-Rash Verified 02/21/24 14:15 mirtazapine [From Remeron] Allergy Mild ALGY-Rash Verified 02/21/24 14:15 tolmetin Allergy ALGY-Rash Verified 02/21/24 14:15 Review of Systems 2 Const: Denies: fever(s) or chills Card: Denies: chest pain Resp: Denies: dyspnea GI: Reports: abdominal pain and melena : Denies: dysuria, urinary frequency or urinary urgency Musc: Denies: neck pain or back pain Skin/Breast: Denies: rash PFSH ED 2 PFSH: Medical History Tardive dyskinesia Chronic pancreatitis Seronegative rheumatoid arthritis of both hands MDD (major depressive disorder) POD (perioral dermatitis) Inflammatory arthritis Depression with anxiety Joint pain High risk medication use Psychiatric care Surgical History History of hysterectomy History of cholecystectomy H/O gastric bypass History of shoulder surgery bilateral History of tonsillectomy and adenoidectomy Family History Mother Cancer Breast Cancer Migraines Grandmother Cancer Colon Other Chronic kidney disease (CKD) Diabetes Hyperlipidemia Hypertension Lung disease Rheumatoid arthritis Stroke Denies family history of Lupus CAD (coronary artery disease) Psoriatic arthritis Social History Smoking and tobacco/nicotine status: never used tobacco/nicotine Second hand smoke exposure: No Alcohol intake: never Substance/Drug Use: current Substance/Drug use frequency: few times a week Other substance/drug use details: Gummies Female Reproductive History: Spontaneous abortions: No Physical Exam 2 Const: GENERAL APPEARANCE: cooperative ORIENTATION/CONSCIOUSNESS: Yes awake, Yes oriented to person, Yes oriented to place and Yes oriented to time HENMT: COMMON NORMALS: normocephalic, atraumatic and hearing grossly normal bilaterally HEAD & SCALP: normocephalic and atraumatic Resp: COMMON NORMALS: normal respiratory effort, No retractions, No use of accessory muscles and clear to auscultation bilaterally AUSCULTATION: clear to auscultation bilaterally Cardio: COMMON NORMALS: regular rate, regular rhythm and No murmurs present (Cardio) RATE: regular rate RHYTHM: regular rhythm GI: COMMON NORMALS: No hepatosplenomegaly present AUSCULTATION: Yes normoactive bowel sounds PALPATION: Yes Tenderness to palpation present (GI) (Epigastric), No Guarding due to palpation present (GI) and Yes No hepatosplenomegaly present OTHER: Rectal exam done with nurse present normal external rectal sphincter tone no hemorrhoids noted Hemoccult on the stool was negative Extremity: COMMON NORMALS: normal to inspection, capillary refill normal, no clubbing, cyanosis or edema, no calf tenderness and no pedal edema Neuro: SENSORIUM/ORIENTATION: Yes oriented to person, Yes oriented to place and Yes oriented to time Skin: COMMON NORMALS: no rashes or lesions noted GENERAL SKIN EXAM: no rashes or lesions noted Course 2 Vital Signs: Vital signs: Vital Signs Temperature 98.3 F 02/25/24 19:31 Pulse Rate 87 02/25/24 19:31 Respiratory Rate 18 02/25/24 19:31 Blood Pressure 135/85 02/25/24 19:31 Pulse Oximetry 97 02/25/24 19:31 Oxygen Delivery Me thod Room Air 02/25/24 16:54 MDM - GI Bleed Medical Decision Making Care signed out to Dr. Caceres at change of shift. See final notes for diagnosis and disposition. Patient is checked out at shift change. Vitals are stable here. She is not on oxygen. Hemoglobin is stable at 8.3 from 8.6 a couple of days ago. Her Hemoccult is negative on rectal exam. BMP is normal. Liver enzymes are not remarkable. Her MCV is quite high at 135. Abdominal CT reveals no source of bleeding. No fluid collection. She is significantly symptomatic with her anemia. She gets shortness of breath on exertion, etc.I spoke with our hospitalist team. With stable hemoglobin from 2 days ago, hemoglobin above 7 and a noncardiac patient, Hemoccult negative, there is no definitive intervention from an inpatient standing. Patient has an outpatient scope scheduled in 10 days or so. She is stable for discharge. She will follow-up with her PCP this coming week. Lab Data 02/25/24 16:23 02/25/24 16:23 Radiology Impressions Abdomen/Pelvis CT 02/25/24 16:04 IMPRESSION: 1. No evidence of acute abnormality in the abdomen or pelvis. 2. Prior cholecystectomy with mild-moderate intrahepatic and moderate extrahepatic biliary dilatation. Consider correlation with biliary labs. 3. Nonobstructive renal stones. Laboratory Results WBC 3.84 10^3/uL (3.29-11.43) 02/25/24 16:23 RBC 1.93 10^6/uL (3.85-5.65) L 02/25/24 16:23 Hgb 8.30 g/dL (11.27-16.99) L 02/25/24 16:23 Hct 26.1 % (36-47) L 02/25/24 16:23 MCV 135.2 fl (85-98) H 02/25/24 16:23 MCH 43.0 pg (27-33) H 02/25/24 16:23 MCHC 31.8 g/dL (30-55) 02/25/24 16:23 RDW 20.0 % (12.1-15.1) H 02/25/24 16:23 Plt Count 191 10^3/cmm (157-399) 02/25/24 16:23 MPV 10.1 fL (7.4-10.4) 02/25/24 16:23 Neut % (Auto) 62.0 % 02/25/24 16:23 Lymph % (Auto) 28.1 % 02/25/24 16:23 [place] % (Auto) 6.3 % 02/25/24 16:23 Eos % (Auto) 2.1 % 02/25/24 16:23 Baso % (Auto) 1.0 % 02/25/24 16:23 Neut # (Auto) 2.38 10^3/uL (1.8-7.7) 02/25/24 16:23 Lymph # (Auto) 1.1 10^3/uL (0.8-4.8) 02/25/24 16:23 [place] # (Auto) 0.2 10^3/uL (0.2-0.9) 02/25/24 16:23 Eos # (Auto) 0.1 10^3/uL (0.0-0.8) 02/25/24 16:23 Baso # (Auto) 0.0 10^3/uL (0.0-0.1) 02/25/24 16: Nucleated RBC % (auto) 1.0 % 02/25/24 16: Nucleated RBCs # 0.0 /100WBC 02/25/24 16:23 PT 12.70 SECONDS (12.1-14.9) 02/25/24 16:23 INR 0.93 (0.8-1.2) 02/25/24 16:23 APTT 26.5 SECONDS (23.9-36.7) 02/25/24 16:23 Sodium 137 mmol/L (136-145) 02/25/24 16:23 Potassium 3.9 mmol/L (3.5-5.1) 02/25/24 16:23 Chloride 104 mmol/L (98-107) 02/25/24 16:23 Carbon Dioxide 20 mmol/L (22-29) L 02/25/24 16:23 Anion Gap 16.9 (5-19) 02/25/24 16:23 BUN 7 mg/dL (6-20) 02/25/24 16:23 Creatinine 0.9 mg/dL (0.5-0.9) 02/25/24 16:23 GFR Calculation 64.8 mL/min (90-130) L 02/25/24 16:23 Glucose 89 mg/dL (65-115) 02/25/24 16:23 Calculated Osmolality 281 mOsm/kg (285-295) L 02/25/24 16:23 Calcium 8.4 mg/dL (8.5-10.5) L 02/25/24 16:23 Total Bilirubin 0.5 mg/dL (0.15-1.2) 02/25/24 16:23 AST 11 U/L (0-32) 02/25/24 16:23 ALT 6 U/L (0-33) 02/25/24 16:23 Alkaline Phosphatase 109 U/L (35-105) H 02/25/24 16:23 Total Protein 5.7 g/dL (6.6-8.7) L 02/25/24 16:23 Albumin 3.5 g/dL (3.5-5.2) 02/25/24 16:23 Globulin 2.2 g/dL (1.3-4.6) 02/25/24 16:23 Urine Color Yellow (Yellow) 02/25/24 17:23 Urine Appearance Clear (CLEAR) 02/25/24 17:23 Urine pH 6.5 (5-7) 02/25/24 17:23 Ur Specific [place] 1.028 (1.005-1.030) 02/25/24 17:23 Urine Protein Negative (Negative) 02/25/24 17:23 Urine Glucose (UA) Negative (Normal) 02/25/24 17:23 Urine Ketones Negative (Negative) 02/25/24 17:23 Urine Blood Negative (Negative) 02/25/24 17:23 Urine Nitrate Negative (Negative) 02/25/24 17:23 Urine Bilirubin Negative (Negative) 02/25/24 17:23 Urine Urobilinogen 1.0 mg/dL (Negative) 02/25/24 17:23 Ur Leukocyte Esterase Trace (Negative) A 02/25/24 17:23 Urine RBC 0-2 /hpf (0-2) 02/25/24 17:23 Urine WBC 0-5 /hpf (0-5) 02/25/24 17:23 Ur Squamous Epith Cells 6-10 /hpf (0-5) 02/25/24 17:23 Amorphous Sediment Not Reportable 02/25/24 17:23 Urine Bacteria 1+ /hpf (NONE) H 02/25/24 17:23 Hyaline Casts 2.05 /lpf 02/25/24 17:23 Discharge Plan Discharge Patient Disposition: Home Clinical Impression: Anemia Condition: Stable Prescriptions: No Action buprenorphine HCl 8 mg tablet, sublingual 8 mg sublingual DAILY sucralfate [Carafate] 1 gram tablet 1 g PO BID Qty: 60 2RF cyclobenzaprine 10 mg tablet 10 mg PO TID gabapentin 300 mg capsule 300 mg PO BID leflunomide 20 mg tablet 20 mg PO DAILY Qty: 90 1RF sulfasalazine 500 mg tablet 1 g PO BID Qty: 120 5RF Rx Instructions: take with food prednisone 5 mg tablet 5 mg PO DAILY Qty: 90 1RF duloxetine 60 mg capsule,delayed release(DR/EC) 60 mg PO DAILY Qty: 30 2RF Rx Instructions: take 1 capsule BY MOUTH EVERY DAY Vraylar 1.5 mg capsule 1.5 mg PO DAILY Qty: 30 2RF valacyclovir [Valtrex] 500 mg tablet 500 mg PO BID Qty: 20 5RF Rx Instructions: Take one tab twice a day at onset of symptoms. Qulipta 60 mg tablet 60 mg PO DAILY Qty: 60 2RF cyanocobalamin (vitamin B-12) 1,000 mcg/mL solution 100 mcg IM DAILY Qty: 10 1RF Rx Instructions: Daily x 1 week, then every other day x 2 weeks, weekly x 1 month, then monthly. (DME) Monoject Safety Syringes 3 mL 25 gauge x 5/8 syringe See Rx Instructions .Route Qty: 100 0RF Rx Instructions: As directed topiramate 100 mg tablet 100 mg PO BID Qty: 60 5RF cholecalciferol (vitamin D3) 25 mcg (1,000 unit) capsule 25 mcg PO DAILY Qty: 90 0RF levothyroxine 75 mcg tablet See Rx Instructions .ROUTE .COMPLEX Qty: 60 2RF Dose Instruction: TAKE 1 TABLET BY MOUTH EVERY DAY Rx Instructions: TAKE 1 TABLET BY MOUTH EVERY DAY pantoprazole 40 mg tablet,delayed release (DR/EC) See Rx Instructions .ROUTE .COMPLEX Qty: 180 1RF Dose Instruction: TAKE ONE TABLET BY MOUTH TWICE DAILY Rx Instructions: TAKE ONE TABLET BY MOUTH TWICE DAILY diclofenac sodium 75 mg tablet,delayed release (DR/EC) 75 mg PO BID PRN (Reason: pain) Qty: 60 1RF Hold Instructions: Resume on 11/11/23. Ingrezza 80 mg capsule 80 mg PO DAILY Qty: 30 2RF ondansetron HCl 8 mg tablet 8 mg PO DAILY Rx Instructions: TAKE ONE TABLET BY MOUTH DAILY prednisone 20 mg tablet See Rx Instructions .ROUTE .COMPLEX Rx Instructions: 20 mg orally ;TAKE 2 TABLETS BY MOUTH EVERY DAY FOR SEVEN DAYS NEEDED FOR joint pain flare Discharge Orders: Discharge ED (Routine); Ordered 02/25/24 Ordered By: Elvin Caceres Referrals: Salvatore Medeiros DO [Primary Care Provider] - 1-3 days Patient Instructions: Anemia (ED), Opioid Safety, Pain Management Activity Restrictions/Additional Instructions: You should have your hemoglobin repeated Tuesday morning. Return immediately for worsening shortness of breath, blood in the stool or vomitus, development of chest pain, other concerning symptoms. See your doctor at the beginning of the week if possible. Coding Level of Care Code ED Emergency Care Attendant for Chg Fwd Documented by User: Elvin Caceres DO 02/25/24 19:25 HPI - GI Bleed 2 General: Chief complaint: GI Bleed Stated complaint: stomach pain, black stools, losing blood Time Seen by Provider: 02/25/24 16:03 Related Data Home Medications Medication Instructions Recorded Confirmed buprenorphine HCl 8 mg sublingual 8 mg sublingual DAILY 09/24/22 02/21/24 tablet cyclobenzaprine 10 mg tablet 10 mg PO TID 05/05/23 02/21/24 ondansetron HCl 8 mg tablet 8 mg PO DAILY 11/04/23 02/21/24 prednisone 20 mg tablet See Rx Instructions .Route .COMPLEX 11/04/23 02/21/24 gabapentin 300 mg capsule 300 mg PO BID 01/23/24 02/21/24 Previous Rx's Medication Instructions Recorded topiramate 100 mg tablet 100 mg PO BID #60 tabs 10/12/22 cholecalciferol (vitamin D3) 25 25 mcg PO DAILY #90 caps 12/02/22 mcg (1,000 unit) capsule sucralfate 1 gram tablet (Carafate) 1 g PO BID #60 tabs 01/19/23 valacyclovir 500 mg tablet 500 mg PO BID #20 tabs 03/22/23 (Valtrex) atogepant 60 mg tablet (Qulipta) 60 mg PO DAILY #60 tabs 09/21/23 levothyroxine 75 mcg tablet See Rx Instructions .Route 01/13/24 .COMPLEX #60 tabs pantoprazole 40 mg tablet,delayed See Rx Instructions .Route 01/13/24 release .COMPLEX #180 tabs diclofenac sodium 75 mg 75 mg PO BID PRN pain #60 tabs 01/20/24 tablet,delayed release leflunomide 20 mg tablet 20 mg PO DAILY #90 tabs 01/23/24 prednisone 5 mg tablet 5 mg PO DAILY #90 tabs 01/23/24 sulfasalazine 500 mg tablet 1 g (2 x 500 mg) PO BID #120 tabs 01/23/24 valbenazine 80 mg capsule 80 mg PO DAILY #30 caps 02/01/24 (Ingrezza) cariprazine 1.5 mg capsule 1.5 mg PO DAILY #30 caps 02/06/24 (Vraylar) duloxetine 60 mg capsule,delayed 60 mg PO DAILY #30 caps 02/06/24 release cyanocobalamin (vitamin B-12) 100 mcg (0.1 mL) IM DAILY #10 mL 02/21/24 1,000 mcg/mL injection solution syringe with needle, safety 3 mL #100 ea 02/21/24 25 gauge x 5/8 (Monoject Safety Syringes) Allergies Allergy/AdvReac Type Severity Reaction Status Date / Time azithromycin Allergy Mild ALGY-Rash Verified 02/21/24 14:15 mirtazapine [From Remeron] Allergy Mild ALGY-Rash Verified 02/21/24 14:15 tolmetin Allergy ALGY-Rash Verified 02/21/24 14:15 PFSH ED 2 PFSH: Medical History Tardive dyskinesia Chronic pancreatitis Seronegative rheumatoid arthritis of both hands MDD (major depressive disorder) POD (perioral dermatitis) Inflammatory arthritis Depression with anxiety Joint pain High risk medication use Psychiatric care Surgical History History of hysterectomy History of cholecystectomy H/O gastric bypass History of shoulder surgery bilateral History of tonsillectomy and adenoidectomy Family History Mother Cancer Breast Cancer Migraines Grandmother Cancer Colon Other Chronic kidney disease (CKD) Diabetes Hyperlipidemia Hypertension Lung disease Rheumatoid arthritis Stroke Denies family history of Lupus CAD (coronary artery disease) Psoriatic arthritis Social History Smoking and tobacco/nicotine status: never used tobacco/nicotine Second hand smoke exposure: No Alcohol intake: never Substance/Drug Use: current Substance/Drug use frequency: few times a week Other substance/drug use details: Gummies Course 2 Vital Signs: Vital signs: Vital Signs Temperature 98.3 F 02/25/24 19:31 Pulse Rate 87 02/25/24 19:31 Respiratory Rate 18 02/25/24 19:31 Blood Pressure 135/85 02/25/24 19:31 Pulse Oximetry 97 02/25/24 19:31 Oxygen Delivery Me thod Room Air 02/25/24 16:54 MDM - GI Bleed Medical Decision Making Patient is checked out at shift change. Vitals are stable here. She is not on oxygen. Hemoglobin is stable at 8.3 from 8.6 a couple of days ago. Her Hemoccult is negative on rectal exam. BMP is normal. Liver enzymes are not remarkable. Her MCV is quite high at 135. Abdominal CT reveals no source of bleeding. No fluid collection. She is significantly symptomatic with her anemia. She gets shortness of breath on exertion, etc.I spoke with our hospitalist team. With stable hemoglobin from 2 days ago, hemoglobin above 7 and a noncardiac patient, Hemoccult negative, there is no definitive intervention from an inpatient standing. Patient has an outpatient scope scheduled in 10 days or so. She is stable for discharge. She will follow-up with her PCP this coming week. Lab Data 02/25/24 16:23 02/25/24 16:23 Radiology Impressions Abdomen/Pelvis CT 02/25/24 16:04 IMPRESSION: 1. No evidence of acute abnormality in the abdomen or pelvis. 2. Prior cholecystectomy with mild-moderate intrahepatic and moderate extrahepatic biliary dilatation. Consider correlation with biliary labs. 3. Nonobstructive renal stones. Laboratory Results WBC 3.84 10^3/uL (3.29-11.43) 02/25/24 16:23 RBC 1.93 10^6/uL (3.85-5.65) L 02/25/24 16:23 Hgb 8.30 g/dL (11.27-16.99) L 02/25/24 16:23 Hct 26.1 % (36-47) L 02/25/24 16:23 MCV 135.2 fl (85-98) H 02/25/24 16:23 MCH 43.0 pg (27-33) H 02/25/24 16:23 MCHC 31.8 g/dL (30-55) 02/25/24 16:23 RDW 20.0 % (12.1-15.1) H 02/25/24 16:23 Plt Count 191 10^3/cmm (157-399) 02/25/24 16:23 MPV 10.1 fL (7.4-10.4) 02/25/24 16:23 Neut % (Auto) 62.0 % 02/25/24 16:23 Lymph % (Auto) 28.1 % 02/25/24 16:23 [place] % (Auto) 6.3 % 02/25/24 16:23 Eos % (Auto) 2.1 % 02/25/24 16:23 Baso % (Auto) 1.0 % 02/25/24 16:23 Neut # (Auto) 2.38 10^3/uL (1.8-7.7) 02/25/24 16:23 Lymph # (Auto) 1.1 10^3/uL (0.8-4.8) 02/25/24 16:23 [place] # (Auto) 0.2 10^3/uL (0.2-0.9) 02/25/24 16:23 Eos # (Auto) 0.1 10^3/uL (0.0-0.8) 02/25/24 16:23 Baso # (Auto) 0.0 10^3/uL (0.0-0.1) 02/25/24 16:23 Nucleated RBC % (auto) 1.0 % 02/25/24 16:23 Nucleated RBCs # 0.0 /100WBC 02/25/24 16:23 PT 12.70 SECONDS (12.1-14.9) 02/25/24 16:23 INR 0.93 (0.8-1.2) 02/25/24 16:23 APTT 26.5 SECONDS (23.9-36.7) 02/25/24 16:23 Sodium 137 mmol/L (136-145) 02/25/24 16:23 Potassium 3.9 mmol/L (3.5-5.1) 02/25/24 16:23 Chloride 104 mmol/L (98-107) 02/25/24 16:23 Carbon Dioxide 20 mmol/L (22-29) L 02/25/24 16:23 Anion Gap 16.9 (5-19) 02/25/24 16:23 BUN 7 mg/dL (6-20) 02/25/24 16:23 Creatinine 0.9 mg/dL (0.5-0.9) 02/25/24 16:23 GFR Calculation 64.8 mL/min (90-130) L 02/25/24 16:23 Glucose 89 mg/dL (65-115) 02/25/24 16:23 Calculated Osmolality 281 mOsm/kg (285-295) L 02/25/24 16:23 Calcium 8.4 mg/dL (8.5-10.5) L 02/25/24 16:23 Total Bilirubin 0.5 mg/dL (0.15-1.2) 02/25/24 16:23 AST 11 U/L (0-32) 02/25/24 16:23 ALT 6 U/L (0-33) 02/25/24 16:23 Alkaline Phosphatase 109 U/L (35-105) H 02/25/24 16:23 Total Protein 5.7 g/dL (6.6-8.7) L 02/25/24 16:23 Albumin 3.5 g/dL (3.5-5.2) 02/25/24 16:23 Globulin 2.2 g/dL (1.3-4.6) 02/25/24 16:23 Urine Color Yellow (Yellow) 02/25/24 17:23 Urine Appearance Clear (CLEAR) 02/25/24 17:23 Urine pH 6.5 (5-7) 02/25/24 17:23 Ur Specific [place] 1.028 (1.005-1.030) 02/25/24 17:23 Urine Protein Negative (Negative) 02/25/24 17:23 Urine Glucose (UA) Negative (Normal) 02/25/24 17:23 Urine Ketones Negative (Negative) 02/25/24 17:23 Urine Blood Negative (Negative) 02/25/24 17:23 Urine Nitrate Negative (Negative) 02/25/24 17:23 Urine Bilirubin Negative (Negative) 02/25/24 17:23 Urine Urobilinogen 1.0 mg/dL (Negative) 02/25/24 17:23 Ur Leukocyte Esterase Trace (Negative) A 02/25/24 17:23 Urine RBC 0-2 /hpf (0-2) 02/25/24 17:23 Urine WBC 0-5 /hpf (0-5) 02/25/24 17:23 Ur Squamous Epith Cells 6-10 /hpf (0-5) 02/25/24 17:23 Amorphous Sediment Not Reportable 02/25/24 17:23 Urine Bacteria 1+ /hpf (NONE) H 02/25/24 17:23 Hyaline Casts 2.05 /lpf 02/25/24 17:23 All radiology interpretation(s) finalized by discharge Discharge Plan Discharge Patient Disposition: Home Clinical Impression: Anemia Condition: Stable Prescriptions: No Action buprenorphine HCl 8 mg tablet, sublingual 8 mg sublingual DAILY sucralfate [Carafate] 1 gram tablet 1 g PO BID Qty: 60 2RF cyclobenzaprine 10 mg tablet 10 mg PO TID gabapentin 300 mg capsule 300 mg PO BID leflunomide 20 mg tablet 20 mg PO DAILY Qty: 90 1RF sulfasalazine 500 mg tablet 1 g PO BID Qty: 120 5RF Rx Instructions: take with food prednisone 5 mg tablet 5 mg PO DAILY Qty: 90 1RF duloxetine 60 mg capsule,delayed release(DR/EC) 60 mg PO DAILY Qty: 30 2RF Rx Instructions: take 1 capsule BY MOUTH EVERY DAY Vraylar 1.5 mg capsule 1.5 mg PO DAILY Qty: 30 2RF valacyclovir [Valtrex] 500 mg tablet 500 mg PO BID Qty: 20 5RF Rx Instructions: Take one tab twice a day at onset of symptoms. Qulipta 60 mg tablet 60 mg PO DAILY Qty: 60 2RF cyanocobalamin (vitamin B-12) 1,000 mcg/mL solution 100 mcg IM DAILY Qty: 10 1RF Rx Instructions: Daily x 1 week, then every other day x 2 weeks, weekly x 1 month, then monthly. (DME) Monoject Safety Syringes 3 mL 25 gauge x 5/8 syringe See Rx Instructions .Route Qty: 100 0RF Rx Instructions: As directed topiramate 100 mg tablet 100 mg PO BID Qty: 60 5RF cholecalciferol (vitamin D3) 25 mcg (1,000 unit) capsule 25 mcg PO DAILY Qty: 90 0RF levothyroxine 75 mcg tablet See Rx Instructions .ROUTE .COMPLEX Qty: 60 2RF Dose Instruction: TAKE 1 TABLET BY MOUTH EVERY DAY Rx Instructions: TAKE 1 TABLET BY MOUTH EVERY DAY pantoprazole 40 mg tablet,delayed release (DR/EC) See Rx Instructions .ROUTE .COMPLEX Qty: 180 1RF Dose Instruction: TAKE ONE TABLET BY MOUTH TWICE DAILY Rx Instructions: TAKE ONE TABLET BY MOUTH TWICE DAILY diclofenac sodium 75 mg tablet,delayed release (DR/EC) 75 mg PO BID PRN (Reason: pain) Qty: 60 1RF Hold Instructions: Resume on 11/11/23. Ingrezza 80 mg capsule 80 mg PO DAILY Qty: 30 2RF ondansetron HCl 8 mg tablet 8 mg PO DAILY Rx Instructions: TAKE ONE TABLET BY MOUTH DAILY prednisone 20 mg tablet See Rx Instructions .ROUTE .COMPLEX Rx Instructions: 20 mg orally ;TAKE 2 TABLETS BY MOUTH EVERY DAY FOR SEVEN DAYS NEEDED FOR joint pain flare Discharge Orders: Discharge ED (Routine); Ordered 02/25/24 Ordered By: Elvin Caceres Referrals: Salvatore Medeiros, [Primary Care Provider] - 1-3 days Patient Instructions: Anemia (ED), Opioid Safety, Pain Management Activity Restrictions/Additional Instructions: You should have your hemoglobin repeated Tuesday morning. Return immediately for worsening shortness of breath, blood in the stool or vomitus, development of chest pain, other concerning symptoms. See your doctor at the beginning of the week if possible. Coding Level of Care Code ED Emergency Care Attendant for Reji Ashton
[2024-02-25 16:33] LABS: Eosinophils # 0.1 10^3/uL (0.0-0.8); Eosinophils % 2.1 %; Hematocrit 26.1 % (36-47); Lymphocytes # 1.1 10^3/uL (0.8-4.8); Lymphocytes % 28.1 %; Mean Corpuscular HGB Conc 31.8 g/dL (30-55); Mean Corpuscular Volume 135.2 fl (85-98); Mean Platelet Volume 10.1 fL (7.4-10.4); Monocytes # 0.2 10^3/uL (0.2-0.9); Monocytes % 6.3 %; Neutrophils # 2.38 10^3/uL (1.8-7.7); Platelet Count 191 10^3/cmm (157-399); Red Blood Count 1.93 10^6/uL (3.85-5.65); White Blood Count 3.84 10^3/uL (3.29-11.43)
[2024-02-25 16:46] LABS: INR 0.93 (0.8-1.2)
[2024-02-25 16:47] LABS: Partial Thromboplastin Time 26.5 SECONDS (23.9-36.7)
[2024-02-25 16:52] LABS: Alanine Aminotransferase 6 U/L (0-33); Albumin Level 3.5 g/dL (3.5-5.2); Alkaline Phosphatase 109 U/L (35-105); Anion Gap 16.9 (5-19); Aspartate Amino Transferase 11 U/L (0-32); Blood Urea Nitrogen 7 mg/dL (6-20); Calcium 8.4 mg/dL (8.5-10.5); Carbon Dioxide 20 mmol/L (22-29); Chloride 104 mmol/L (98-107); Creatinine Clr Calc Pharmacy 73.0686; Globulin 2.2 g/dL (1.3-4.6); Glomerular Filtration Rate 64.8 mL/min (90-130); Glucose 89 mg/dL (65-115); Osmolality Calculated 281 mOsm/kg (285-295); Potassium 3.9 mmol/L (3.5-5.1); Sodium 137 mmol/L (136-145); Total Bilirubin 0.5 mg/dL (0.15-1.2); Total Protein 5.7 g/dL (6.6-8.7)
[2024-02-25] MEDS: pantoprazole 40 mg SDV 80 MG IVP (16:53)
[2024-02-25 16:54] VITALS: BP 118/86; PULSE 92; O2SAT 97
[2024-02-25] MEDS: iohexol 350 mg/mL 500 mL Btl (per mL) IV (17:07)
[2024-02-25 17:32] LABS: Charge for UA Resulting for Rev
[2024-02-25 17:34] LABS: Bilirubin Urine Negative (Negative); Blood Urine Negative (Negative); Glucose Urine UA Negative (Normal); Ketones Urine Negative (Negative); Leukocyte Esterase Urine Trace (Negative); Nitrate Urine Negative (Negative); Protein Urine Negative (Negative); Specific Gravity, Urine 1.028 (1.005-1.030); Urine Appearance Clear (CLEAR); Urine Color Yellow (Yellow); pH Urine 6.5 (5-7)
[2024-02-25 17:39] LABS: Bacteria Urine 1+ /hpf; Hyaline Casts Urine 2.05 /lpf; RBC Urine 0-2 /hpf (0-2); WBC Urine 0-5 /hpf (0-5)
[2024-02-25 17:52] VITALS: BP 150/92; PULSE 88; O2SAT 96
[2024-02-25] MEDS: sodium chloride 0.9% 1,000 ML 999 ML IV (18:14)
[2024-02-25 18:39] VITALS: BP 146/108; PULSE 86; O2SAT 96
[2024-02-25 18:57] VITALS: BP 135/85; PULSE 87; O2SAT 97
[2024-02-25 19:31] VITALS: BP 135/85; PULSE 87; RESP 18; TEMP 36.8; O2SAT 97
== END 2024-02-25 19:32 | disposition home or self-care (01) ==
PROVIDERS: Family Medicine; Emergency Provider Emergency Medicine; PCP Family Medicine
DX: D64.9 Anemia, unspecified (principal)
CPT/HCPCS: 36415; 74177; 80053; 81003; 81015; 85025; 85610; 85730; 96361; 96374; 99285; J2470; J7030

== ENCOUNTER → 2024-02-28 14:26 | Outpatient (BNVA) | payer MEDICARE, MEDICAID, SELFPAY | DX: D64.9 Anemia, unspecified (principal) | CPT/HCPCS: 85025 ==

== ENCOUNTER 2024-03-05 07:51 | Day surgery (SDC) | payer MEDICARE, MEDICAID, SELFPAY ==
[2024-03-05 08:12] VITALS: BP 108/85; PULSE 139; RESP 18; TEMP 36.3; O2SAT 100; BMI 29.4
[2024-03-05] MEDS: sodium chloride 0.9% 1,000 ML 30 ML IV (08:25)
--- NOTE | 2024-03-05 08:41 | W.PM.OPSFHP ---
Same Day Surgery H&P Indication for Procedure/HPI DATE OF PROCEDURE: March 05, 2024 CHIEF COMPLAINT/INDICATIONFOR SURGICAL PROCEDURE: GIB PREOP DIAGNOSIS: GIB PLANNED PROCEDURE: Operation Date: 03/05/24 09:00 Proposed Procedures p EGD 81563, 95828, G0105, D64.9, R10.31, R11.2, K21.9(Not Applicable) - Jan Herman MD s Colonoscopy(Not Applicable) - Jan Herman MD Medications/Allergies* Home Medications Medication Instructions Recorded Confirmed Type buprenorphine HCl 8 mg sublingual 8 mg sublingual DAILY 09/24/22 03/01/24 History tablet cyclobenzaprine 10 mg tablet 10 mg PO TID 05/05/23 03/01/24 History ondansetron HCl 8 mg tablet 8 mg PO DAILY 11/04/23 03/01/24 History prednisone 20 mg tablet See Rx Instructions .Route .COMPLEX 11/04/23 03/01/24 History gabapentin 300 mg capsule 300 mg PO BID 01/23/24 03/01/24 History levothyroxine 75 mcg tablet 75 mcg PO DAILY 03/01/24 03/01/24 History pantoprazole 40 mg tablet,delayed 40 mg PO BID 03/01/24 03/01/24 History release Allergies/Adverse Reactions Allergy/AdvReac Type Severity Reaction Status Date / Time azithromycin Allergy Mild ALGY-Rash Verified 03/01/24 09:07 mirtazapine [From Remeron] Allergy Mild ALGY-Rash Verified 03/01/24 09:07 tolmetin Allergy ALGY-Rash Verified 03/01/24 09:07 Current Medications: Generic Name Dose Route Start Last Admin Trade Name Freq PRN Reason Stop Dose Admin Sodium Chloride 1,000 mls @ 30 mls/hr 03/05/24 08:15 03/05/24 08:25 Sodium Chloride 0.9% IV 30 mls/hr .Q24H KATH Administration Pertinent History/Comorbid Conditions* Medical History (Updated 02/25/24 @ 18:58 by Elvin Caceres DO) Tardive dyskinesia Chronic pancreatitis Seronegative rheumatoid arthritis of both hands MDD (major depressive disorder) POD (perioral dermatitis) Inflammatory arthritis Depression with anxiety Joint pain High risk medication use Psychiatric care Surgical History (Updated 11/22/23 @ 09:42 by ALLAN Sutton) History of hysterectomy History of cholecystectomy H/O gastric bypass History of shoulder surgery bilateral History of tonsillectomy and adenoidectomy Family History (Updated 12/13/22 @ 10:08 by Nicolle Vela) Rheumatoid arthritis Diabetes Migraines Mother Hyperlipidemia Chronic kidney disease (CKD) Lung disease Cancer Mother Breast Cancer Grandmother Colon Hypertension Stroke Denies family history of Lupus CAD (coronary artery disease) Psoriatic arthritis Social History Smoking and tobacco/nicotine status: never used tobacco/nicotine Second hand smoke exposure: No Alcohol intake: never Substance/Drug Use: current Substance/Drug use frequency: few times a week Other substance/drug use details: Gummies Pertinent Exam Findings alert, oriented x 3, regular rate & rhythm and procedure specific exam findings Abdomen soft, NT, ND Recommendations Surgery/Procedure today Other Plans: EGD & colonoscopy today Coding Level of Care Code Acute Code for Chg Fwd Time Spent (min) 30
--- NOTE | 2024-03-05 08:51 | ANES.PREANE2 ---
Pre-Anesthetic Assessment Height/Weight: Height 1.65 m Weight 80.286 kg Temp Pulse Resp BP Pulse Ox 97.3 F L 139 H 18 108/85 100 03/05/24 08:12 03/05/24 08:12 03/05/24 08:12 03/05/24 08:12 03/05/24 08:12 Preop Diagnosis: GIB Operation Date: 03/05/24 09:00 Proposed Procedures p EGD 45599, 47611, G0105, D64.9, R10.31, R11.2, K21.9(Not Applicable) - Jan Herman MD s Colonoscopy(Not Applicable) - aJn Herman MD Familial anesthetic complications: PONV Was Beta Ana M taken within 24 hours: N/A Was Clonidine taken within 24 hours: N/A Last intake: Intake Last Liquid Date 03/04/24 Last Liquid Time 21:00 Last Solid Date 03/04/24 Last Solid Time 09:00 Social No alcohol and No tobacco cannibus gummie (4-5 months ago per patient) Exam alert, oriented x 3, clear to auscultation bilaterally and regular rate & rhythm Airway Submandibular: within normal limits Cervical ROM: within normal limits Mallampati: Class II Dentition: false Comments: Comments: reports neck and back pain chronic. numbness in MAURICE baseline. Pulmonary None reported CV/HEM recently went to ED 02/24 with chest pain and SOB patient found to be anemic denies any other episodes of chest pain. METS<4 reports increased SOB with activity Medications/Allergies Home Medications Medication Instructions Recorded Confirmed Last Taken Type buprenorphine HCl 8 mg sublingual 8 mg sublingual DAILY 09/24/22 03/01/24 03/04/24 History tablet topiramate 100 mg tablet 100 mg PO BID #60 tabs 10/12/22 03/01/24 03/04/24 Rx cholecalciferol (vitamin D3) 25 25 mcg PO DAILY #90 caps 12/02/22 03/01/24 03/04/24 Rx mcg (1,000 unit) capsule sucralfate 1 gram tablet (Carafate) 1 g PO BID #60 tabs 01/19/23 03/01/24 03/04/24 Rx valacyclovir 500 mg tablet 500 mg PO BID #20 tabs 03/22/23 03/01/24 03/04/24 Rx (Valtrex) cyclobenzaprine 10 mg tablet 10 mg PO TID 05/05/23 03/01/24 03/04/24 History atogepant 60 mg tablet (Qulipta) 60 mg PO DAILY #60 tabs 09/21/23 03/01/24 03/04/24 Rx ondansetron HCl 8 mg tablet 8 mg PO DAILY 11/04/23 03/01/24 03/04/24 History prednisone 20 mg tablet See Rx Instructions .Route .COMPLEX 11/04/23 03/01/24 03/04/24 History diclofenac sodium 75 mg 75 mg PO BID PRN pain #60 tabs 01/20/24 03/01/24 03/04/24 Rx tablet,delayed release gabapentin 300 mg capsule 300 mg PO BID 01/23/24 03/01/24 03/04/24 History leflunomide 20 mg tablet 20 mg PO DAILY #90 tabs 01/23/24 03/01/24 03/04/24 Rx prednisone 5 mg tablet 5 mg PO DAILY #90 tabs 01/23/24 03/01/24 03/04/24 Rx sulfasalazine 500 mg tablet 1 g (2 x 500 mg) PO BID #120 tabs 01/23/24 03/01/24 03/04/24 Rx valbenazine 80 mg capsule 80 mg PO DAILY #30 caps 02/01/24 03/01/24 03/04/24 Rx (Ingrezza) cariprazine 1.5 mg capsule 1.5 mg PO DAILY #30 caps 02/06/24 03/01/24 03/04/24 Rx (Vraylar) duloxetine 60 mg capsule,delayed 60 mg PO DAILY #30 caps 02/06/24 03/01/24 03/04/24 Rx release cyanocobalamin (vitamin B-12) 100 mcg (0.1 mL) IM DAILY #10 mL 02/21/24 03/01/24 03/04/24 Rx 1,000 mcg/mL injection solution syringe with needle, safety 3 mL #100 ea 02/21/24 02/28/24 03/04/24 Rx 25 gauge x 5/8 (Monoject Safety Syringes) levothyroxine 75 mcg tablet 75 mcg PO DAILY 03/01/24 03/01/24 03/04/24 History pantoprazole 40 mg tablet,delayed 40 mg PO BID 03/01/24 03/01/24 03/04/24 History release Allergies Allergy/AdvReac Type Severity Reaction Status Date / Time azithromycin Allergy Mild ALGY-Rash Verified 03/01/24 09:07 mirtazapine [From Remeron] Allergy Mild ALGY-Rash Verified 03/01/24 09:07 tolmetin Allergy ALGY-Rash Verified 03/01/24 09:07 Current Medications Generic Name Dose Route Start Last Admin Trade Name Mikie PRN Reason Stop Dose Admin Sodium Chloride 1,000 mls @ 30 mls/hr 03/05/24 08:15 03/05/24 08:25 Sodium Chloride 0.9% IV 30 mls/hr .Q24H KATH Administration PFSH Anesthesia Medical History Tardive dyskinesia Chronic pancreatitis Seronegative rheumatoid arthritis of both hands MDD (major depressive disorder) POD (perioral dermatitis) Inflammatory arthritis Depression with anxiety Joint pain High risk medication use Psychiatric care Surgical History History of hysterectomy History of cholecystectomy H/O gastric bypass History of shoulder surgery bilateral History of tonsillectomy and adenoidectomy Family History Mother Cancer Breast Cancer Migraines Grandmother Cancer Colon Other Chronic kidney disease (CKD) Diabetes Hyperlipidemia Hypertension Lung disease Rheumatoid arthritis Stroke Denies family history of Lupus CAD (coronary artery disease) Psoriatic arthritis Social History Smoking and tobacco/nicotine status: never used tobacco/nicotine Second hand smoke exposure: No Alcohol intake: never Substance/Drug Use: current Substance/Drug use frequency: few times a week Other substance/drug use details: Gummies Female Reproductive History Spontaneous abortions: No Data Anesthesia Cardiac Studies: No Data to Display
--- NOTE | 2024-03-05 09:17 | ECG_ITS ---
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 Measurements Intervals [place] Rate: 114 P: 51 IA: 125 QRS: 25 QRSD: 86 T: 21 QT: 298 QTc: 411 Interpretive Statements SINUS TACHYCARDIA POSSIBLE LEFT ATRIAL ENLARGEMENT [-0.1mV P-WAVE IN V1/V2] No previous ECG available for comparison Electronically Signed On 03-05-2024 11:17:51 CDT by Hayden Mcdaniels M.D. [id number]
[2024-03-05 09:59] LABS: Basophils # 0.1 10^3/uL (0.0-0.1); Basophils % 1.5 %; Lymphocytes # 0.7 10^3/uL (0.8-4.8); Lymphocytes % 16.5 %; Mean Corpuscular HGB Conc 31.5 g/dL (30-55); Mean Corpuscular Volume 123.8 fl (85-98); Mean Platelet Volume 11.1 fL (7.4-10.4); Monocytes # 0.3 10^3/uL (0.2-0.9); Monocytes % 6.8 %; Neutrophils # 2.91 10^3/uL (1.8-7.7); Neutrophils % 73.7 %; Nucleated Red Blood Cells % 0 %; Platelet Count 275 10^3/cmm (157-399); Red Blood Count 3.15 10^6/uL (3.85-5.65); Red Cell Distribution Width 17.1 % (12.1-15.1); White Blood Count 3.95 10^3/uL (3.29-11.43)
--- NOTE | 2024-03-05 10:09 | P.ANESASSM_ITS ---
Pre-Anesthetic Assessment Height/Weight: Height 1.65 m Weight 80.286 kg Temp Pulse Resp BP Pulse Ox 97.3 F L 139 H 18 108/85 100 03/05/24 08:12 03/05/24 08:12 03/05/24 08:12 03/05/24 08:12 03/05/24 08:12 Preop Diagnosis: GIB Operation Date: 03/05/24 09:00 Proposed Procedures p EGD 78903, 27312, G0105, D64.9, R10.31, R11.2, K21.9(Not Applicable) - Jan Herman MD s Colonoscopy(Not Applicable) - Jan Herman MD Familial anesthetic complications: None Was Beta Ana M taken within 24 hours: N/A Was Clonidine taken within 24 hours: N/A Last intake: Intake Last Liquid Date 03/04/24 Last Liquid Time 21:00 Last Solid Date 03/04/24 Last Solid Time 09:00 Social No alcohol and No tobacco Exam alert, oriented x 3, clear to auscultation bilaterally and regular rate & rhythm (tachy) Airway Mallampati: Class II Pulmonary Exertional Dyspnea (Onset within last 2 months, no prior history, correlated with appearance of black stool) CV/HEM Patient able to achieve > 4 METS less than 2 months ago with no symptoms, CP and GREENE per patient has gotten worse with anemia, no prior cardiac history, no irregular heart rhythm, CP, HF, stents, or WI. Location of CP is over lower sternum and goes to to epigastrum, she feels it related to her stomach 12-lead with tachycardia, motion artifact, but no significant ST depression seen Hgb 12 today GI Gastroesophageal Reflux Disease Hx chronic pancreatitis Hx gastric bypass with Gi bleed at anastamosis Metabolic Thyroid Disease [facility] Fibromyalgia and Rheumatoid Arthritis Anesthetic Plan ASA status: 3 Anesthesia: MAC Risk of > 500 ml blood loss (7ml/kg in children): No Medications/Allergies Home Medications Medication Instructions Recorded Confirmed Last Taken Type buprenorphine HCl 8 mg sublingual 8 mg sublingual DAILY 09/24/22 03/01/24 03/04/24 History tablet topiramate 100 mg tablet 100 mg PO BID #60 tabs 10/12/22 03/01/24 03/04/24 Rx cholecalciferol (vitamin D3) 25 25 mcg PO DAILY #90 caps 12/02/22 03/01/24 03/04/24 Rx mcg (1,000 unit) capsule sucralfate 1 gram tablet (Carafate) 1 g PO BID #60 tabs 01/19/23 03/01/24 03/04/24 Rx valacyclovir 500 mg tablet 500 mg PO BID #20 tabs 03/22/23 03/01/24 03/04/24 Rx (Valtrex) cyclobenzaprine 10 mg tablet 10 mg PO TID 05/05/23 03/01/24 03/04/24 History atogepant 60 mg tablet (Qulipta) 60 mg PO DAILY #60 tabs 09/21/23 03/01/24 03/04/24 Rx ondansetron HCl 8 mg tablet 8 mg PO DAILY 11/04/23 03/01/24 03/04/24 History prednisone 20 mg tablet See Rx Instructions .Route .COMPLEX 11/04/23 03/01/24 03/04/24 History diclofenac sodium 75 mg 75 mg PO BID PRN pain #60 tabs 01/20/24 03/01/24 03/04/24 Rx tablet,delayed release gabapentin 300 mg capsule 300 mg PO BID 01/23/24 03/01/24 03/04/24 History leflunomide 20 mg tablet 20 mg PO DAILY #90 tabs 01/23/24 03/01/24 03/04/24 Rx prednisone 5 mg tablet 5 mg PO DAILY #90 tabs 01/23/24 03/01/24 03/04/24 Rx sulfasalazine 500 mg tablet 1 g (2 x 500 mg) PO BID #120 tabs 01/23/24 03/01/24 03/04/24 Rx valbenazine 80 mg capsule 80 mg PO DAILY #30 caps 02/01/24 03/01/24 03/04/24 Rx (Ingrezza) cariprazine 1.5 mg capsule 1.5 mg PO DAILY #30 caps 02/06/24 03/01/24 03/04/24 Rx (Vraylar) duloxetine 60 mg capsule,delayed 60 mg PO DAILY #30 caps 02/06/24 03/01/24 03/04/24 Rx release cyanocobalamin (vitamin B-12) 100 mcg (0.1 mL) IM DAILY #10 mL 02/21/24 03/01/24 03/04/24 Rx 1,000 mcg/mL injection solution syringe with needle, safety 3 mL #100 ea 02/21/24 02/28/24 03/04/24 Rx 25 gauge x 5/8 (Monoject Safety Syringes) levothyroxine 75 mcg tablet 75 mcg PO DAILY 03/01/24 03/01/24 03/04/24 History pantoprazole 40 mg tablet,delayed 40 mg PO BID 03/01/24 03/01/24 03/04/24 History release Allergies Allergy/AdvReac Type Severity Reaction Status Date / Time azithromycin Allergy Mild ALGY-Rash Verified 03/01/24 09:07 mirtazapine [From Remeron] Allergy Mild ALGY-Rash Verified 03/01/24 09:07 tolmetin Allergy ALGY-Rash Verified 03/01/24 09:07 Current Medications Generic Name Dose Route Start Last Admin Trade Name Freq PRN Reason Stop Dose Admin Sodium Chloride 1,000 mls @ 30 mls/hr 03/05/24 08:15 03/05/24 08:25 Sodium Chloride 0.9% IV 30 mls/hr .Q24H KATH Administration PFSH Anesthesia Medical History Tardive dyskinesia Chronic pancreatitis Seronegative rheumatoid arthritis of both hands MDD (major depressive disorder) POD (perioral dermatitis) Inflammatory arthritis Depression with anxiety Joint pain High risk medication use Psychiatric care Surgical History History of hysterectomy History of cholecystectomy H/O gastric bypass History of shoulder surgery bilateral History of tonsillectomy and adenoidectomy Family History Mother Cancer Breast Cancer Migraines Grandmother Cancer Colon Other Chronic kidney disease (CKD) Diabetes Hyperlipidemia Hypertension Lung disease Rheumatoid arthritis Stroke Denies family history of Lupus CAD (coronary artery disease) Psoriatic arthritis Social History Smoking and tobacco/nicotine status: never used tobacco/nicotine Second hand smoke exposure: No Alcohol intake: never Substance/Drug Use: current Substance/Drug use frequency: few times a week Other substance/drug use details: Gummies Female Reproductive History Spontaneous abortions: No Data Anesthesia 03/05/24 09:40 Short CBC 03/05/24 Range/Units 09:40 WBC 3.95 (3.29-11.43) 10^3/uL Hgb 12.30 (11.27-16.99) g/dL Hct 39.0 (36-47) % MCV 123.8 H (85-98) fl Plt Count 275 (157-399) 10^3/cmm Neut % (Auto) 73.7 % Neut # (Auto) 2.91 (1.8-7.7) 10^3/uL Cardiac Studies: 2 No Data to Display
[2024-03-05 12:23] VITALS: BP 130/84; PULSE 93; RESP 20; TEMP 36.3; O2SAT 95
--- NOTE | 2024-03-05 12:37 | P.PN_ITS ---
Subjective 2 Subjective: EGD Vitals/I&O/Wt Last Vital Signs Temp 97.3 F L 03/05/24 12:23 Pulse 93 03/05/24 12:23 Resp 20 H 03/05/24 12:23 BP 130/84 03/05/24 12:23 Pulse Ox 95 03/05/24 12:23 O2 Del Method Nasal Cannula 03/05/24 12:23 O2 Flow Rate 4 03/05/24 12:23 Weight last 48 hrs Weight 177 lb Data 03/05/24 09:40 Coding Level of Care Code Acute Code for Chg Fwd
--- NOTE | 2024-03-05 13:05 | ANE.PACU2 ---
Inpatient post-anesthesia follow up: Airway intact: Yes Vital signs: Temperature 97.3 F Pulse Rate 91 Respiratory Rate 18 Blood Pressure 145/93 Pulse Oximetry 96 Oxygen Delivery Me thod Room Air Oxygen Flow Rate 4 Fraction of Inspir ed Oxygen Hydration adequate: Yes Nausea and vomiting: No Pain level: 1 Mental status: Baseline
[2024-03-05 13:06] VITALS: BP 145/93; PULSE 91; RESP 18; O2SAT 96
== END 2024-03-05 13:06 | disposition home or self-care (01) ==
PROVIDERS: Anesthesiology; Visit Provider Student in an Organized Health Care Education/Training Program
PROC: 0DJD8ZZ Inspection of Lower Intestinal Tract, Via Natural or Artificial Opening Endoscopic (ICD-10-PCS; CPT 45330; 2024-03-05 09:00)
DX: D64.9 Anemia, unspecified (principal); Z98.84 Bariatric surgery status; M79.7 Fibromyalgia; M06.9 Rheumatoid arthritis, unspecified; Z79.52 Long term (current) use of systemic steroids
CPT/HCPCS: 43235; 45330; 85025; 93005; J2704; J7030

== ENCOUNTER 2024-03-12 06:00 | Outpatient (CLI) | payer MEDICARE, MEDICAID, SELFPAY | END 2024-03-12 06:01 | disposition home or self-care (01) | LOC: RAD 03-30 10:34 | PROVIDERS: PCP Family Medicine; Visit Provider Family Medicine | DX: E03.9 Hypothyroidism, unspecified (principal); R79.89 Other specified abnormal findings of blood chemistry; E53.8 Deficiency of other specified B group vitamins; K21.00 Gastro-esophageal reflux disease with esophagitis, without bleeding; D64.9 Anemia, unspecified; M06.041 Rheumatoid arthritis without rheumatoid factor, right hand; M06.042 Rheumatoid arthritis without rheumatoid factor, left hand; M19.90 Unspecified osteoarthritis, unspecified site; G43.719 Chronic migraine without aura, intractable, without status migrainosus; R00.0 Tachycardia, unspecified; Z79.899 Other long term (current) drug therapy | CPT/HCPCS: 80053; 82310; 82607; 83036; 83550; 83880; 83970; 84439; 84443; 84466; 84481; 85007; 85027; 85045; 86140 ==

== ENCOUNTER → 2024-03-21 13:31 | Outpatient (BNVA) | payer MEDICARE, OTHER, SELFPAY | PROVIDERS: PCP Family Medicine; Visit Provider Psychiatry & Neurology Neurology | DX: G43.719 Chronic migraine without aura, intractable, without status migrainosus (principal) | CPT/HCPCS: 99212; 99213 ==

== ENCOUNTER 2024-03-21 14:43 | Inpatient (IN) | payer MEDICARE, MEDICAID, SELFPAY ==
[2024-03-21] VITALS (22 sets, daily range): BP systolic 118–148; BP diastolic 79–99; PULSE 76–108; RESP 9–20; TEMP 36.7–37.2; O2SAT 81–100; BMI 29.6; BMI 30.1
--- NOTE | 2024-03-21 14:45 | ECG_ITS ---
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 Measurements Intervals [place] Rate: 105 P: 76 TN: 135 QRS: 65 QRSD: 85 T: 64 QT: 299 QTc: 396 Interpretive Statements SINUS TACHYCARDIA NONSPECIFIC ST & T-WAVE ABNORMALITY ABNORMAL RHYTHM ECG Compared to ECG 03/05/2024 09:17:33 T-wave abnormality now present Electronically Signed On 03-21-2024 23:01:19 CDT by Neftali Holloway M.D. [id number]
--- NOTE | 2024-03-21 15:19 | XR_ITS ---
WS: [id number] Portable AP upright chest, 03/21/2024 Clinical Data: dyspnea/cough Comparison: None. Findings: No nodules, masses or effusions are seen. The heart is normal. The pulmonary vascularity is not increased. No pneumonia or pneumothorax is seen. XR/XR chest 1V portable [id number] Impression: Negative chest.
--- NOTE | 2024-03-21 15:20 | ED_ITS ---
HPI - SOB/Dyspnea 2 General: Chief Complaint: Shortness of Breath/Dyspnea Stated Complaint: sob, Chest pain, elevated heart rate Time Seen by Provider: 03/21/24 15:14 History of Present Illness: HPI Narrative: 58-year-old female who presents to the e mergency room with complaints of shortness of breath and rapid heart rate. Intermittently for the last 2 months she has had chest pain and shortness of breath with exertion and relieved by rest. She has no known history of coronary disease she has an echocardiogram scheduled. Not having previously had any cardiac evaluation she does not smoke she previously had a Titi-en-Y bypass. She is borderline obese. Patient is not diabetic. She has noticed that the episodes of shortness of breath and chest discomfort have been increasing in frequency and intensity. Today she went to the neurologist they documented her heart rate up to 128 with just walking from the waiting room back to the exam room she also had chest discomfort shortness of breath it resolved with rest. Associated symptoms: Reports chest pain; Deny abdominal pain or fever(s) Related Data Home Medications Medication Instructions Recorded Confirmed buprenorphine HCl 8 mg sublingual 8 mg sublingual DAILY 09/24/22 03/21/24 tablet cyclobenzaprine 10 mg tablet 10 mg PO TID 05/05/23 03/21/24 ondansetron HCl 8 mg tablet 8 mg PO DAILY 11/04/23 03/21/24 prednisone 20 mg tablet See Rx Instructions .Route .COMPLEX 11/04/23 03/21/24 gabapentin 300 mg capsule 300 mg PO BID 01/23/24 03/21/24 levothyroxine 75 mcg tablet 75 mcg PO DAILY 03/01/24 03/21/24 pantoprazole 40 mg tablet,delayed 40 mg PO BID 03/01/24 03/21/24 release albuterol sulfate 90 mcg/actuation 2 puff inhalation Q6H PRN 03/21/24 03/21/24 aerosol inhaler (Ventolin HFA) Previous Rx's Medication Instructions Recorded topiramate 100 mg tablet 100 mg PO BID #60 tabs 10/12/22 cholecalciferol (vitamin D3) 25 25 mcg PO DAILY #90 caps 12/02/22 mcg (1,000 unit) capsule valacyclovir 500 mg tablet 500 mg PO BID #20 tabs 03/22/23 (Valtrex) atogepant 60 mg tablet (Qulipta) 60 mg PO DAILY #60 tabs 09/21/23 leflunomide 20 mg tablet 20 mg PO DAILY #90 tabs 01/23/24 prednisone 5 mg tablet 5 mg PO DAILY #90 tabs 01/23/24 sulfasalazine 500 mg tablet 1 g (2 x 500 mg) PO BID #120 tabs 01/23/24 valbenazine 80 mg capsule 80 mg PO DAILY #30 caps 02/01/24 (Ingrezza) cariprazine 1.5 mg capsule 1.5 mg PO DAILY #30 caps 02/06/24 (Vraylar) duloxetine 60 mg capsule,delayed 60 mg PO DAILY #30 caps 02/06/24 release syringe with needle, safety 3 mL #100 ea 02/21/24 25 gauge x 5/8 (Monoject Safety Syringes) nystatin 100,000 unit/gram topical 1 applic topical BID #60 grams 03/12/24 powder sucralfate 100 mg/mL oral 10 ml PO TID #1,000 mL 03/12/24 suspension Allergies Allergy/AdvReac Type Severity Reaction Status Date / Time azithromycin Allergy Mild ALGY-Rash Verified 03/21/24 09:58 mirtazapine [From Remeron] Allergy Mild ALGY-Rash Verified 03/21/24 09:58 tolmetin Allergy ALGY-Rash Verified 03/21/24 09:58 Review of Systems 2 Const: Denies: fever(s) or chills Card: Reports: chest pain Resp: Denies: dyspnea GI: Denies: abdominal pain : Denies: dysuria, urinary frequency or urinary urgency Musc: Denies: neck pain or back pain Skin/Breast: Denies: rash PFSH ED 2 PFSH: Medical History Polypharmacy Tachycardia IBS (irritable bowel syndrome) Fibromyalgia Acquired hypothyroidism Headache, chronic migraine without aura, intractable Chronic low back pain GERD with esophagitis Tardive dyskinesia Chronic pancreatitis currently resolved Seronegative rheumatoid arthritis of both hands MDD (major depressive disorder) Inflammatory arthritis Depression with anxiety Joint pain High risk medication use Psychiatric care Surgical History Bariatric surgery status History of esophagogastroduodenoscopy (EGD) Hx of colonoscopy with polypectomy History of carpal tunnel surgery of right wrist 2023 Hx of breast biopsy right' X 2; both benign History of Titi-en-Y gastric bypass History of hysterectomy Hyst due to prolapse, no cancer; ovaries remaining History of cholecystectomy History of shoulder surgery bilateral; for frozen shoulders History of tonsillectomy and adenoidectomy Family History Mother Cancer Breast Cancer Migraines Hypertension Diabetes mellitus, type 2 Grandmother Cancer Colon Other Chronic kidney disease (CKD) Diabetes Hyperlipidemia Lung disease Rheumatoid arthritis Stroke Denies family history of Lupus CAD (coronary artery disease) Psoriatic arthritis Social History Smoking and tobacco/nicotine status: never used tobacco/nicotine Second hand smoke exposure: No Alcohol intake: never Substance/Drug Use: current Substance/Drug use frequency: few times a week Other substance/drug use details: Gummies Household members: none Marital status: Legally Number of children: 3 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 Reproductive History: Spontaneous abortions: No Physical Exam 2 Const: COMMON NORMALS: no acute distress GENERAL APPEARANCE: cooperative and comfortable ORIENTATION/CONSCIOUSNESS: Yes awake, Yes oriented to person, Yes oriented to place and Yes oriented to time HENMT: COMMON NORMALS: normocephalic, atraumatic and hearing grossly normal bilaterally HEAD & SCALP: normocephalic and atraumatic Resp: COMMON NORMALS: normal respiratory effort, No retractions, No use of accessory muscles and clear to auscultation bilaterally AUSCULTATION: clear to auscultation bilaterally Cardio: COMMON NORMALS: regular rate, regular rhythm and No murmurs present (Cardio) RATE: regular rate RHYTHM: regular rhythm GI: COMMON NORMALS: Soft to palpation and No hepatosplenomegaly present A USCULTATION: Yes normoactive bowel sounds PALPATION: Yes Soft to palpation, No Tenderness to palpation present (GI), No Guarding due to palpation present (GI) and Yes No hepatosplenomegaly present Extremity: COMMON NORMALS: normal to inspection, capillary refill normal, no clubbing, cyanosis or edema, no calf tenderness and no pedal edema Neuro: SENSORIUM/ORIENTATION: Yes oriented to person, Yes oriented to place and Yes oriented to time Skin: COMMON NORMALS: no rashes or lesions noted GENERAL SKIN EXAM: no rashes or lesions noted Course 2 Vital Signs: Vital signs: Vital Signs Temperature 98.3 F 03/22/24 04:00 Pulse Rate 79 03/22/24 05:37 Respiratory Rate 18 03/22/24 04:00 Blood Pressure 128/85 03/22/24 04:00 Pulse Oximetry 100 03/22/24 04:00 Oxygen Delivery Me thod Room Air 03/22/24 04:00 Oxygen Flow Rate 1 03/21/24 23:36 Clincial Decision Support The following clinical decision support tools were used to aid in care of the patient HEART Score -> History: Highly Suspicious, EKG: Non-specific Changes, Age: 45-64 yrs, Risk Factors: 1 or 2 Risk Factors, Troponin: Baseline Trop <16 ng/L. Resulting HEART Score: 5. MDM - SOB/Dyspnea Medical Decision Making Patient has escalating angina. Her initial EKG and troponins do not show any acute coronary syndrome she is pain-free at this time. Given her history of steadily escalating anginal last [address] her on observation discussed with hospitalist orders written Medical Records I reviewed the patient's medical records. Lab Data I reviewed the patient's lab results. 03/21/24 15:43 03/21/24 15:43 Labs/Radiology: Radiology Impressions Chest X-Ray 03/21/24 15:19 Impression: Negative chest. Laboratory Results WBC 4.01 10^3/uL (3.29-11.43) 03/21/24 15:43 RBC 3.06 10^6/uL (3.85-5.65) L 03/21/24 15:43 Hgb 10.70 g/dL (11.27-16.99) L 03/21/24 15:43 Hct 33.9 % (36-47) L 03/21/24 15:43 MCV 110.8 fl (85-98) H 03/21/24 15:43 MCH 35.0 pg (27-33) H 03/21/24 15:43 MCHC 31.6 g/dL (30-55) 03/21/24 15:43 RDW 15.5 % (12.1-15.1) H 03/21/24 15:43 Plt Count 231 10^3/cmm (157-399) 03/21/24 15:43 MPV 10.5 fL (7.4-10.4) H 03/21/24 15:43 Neut % (Auto) 62.0 % 03/21/24 15:43 Lymph % (Auto) 26.4 % 03/21/24 15:43 [place] % (Auto) 7.7 % 03/21/24 15:43 Eos % (Auto) 1.5 % 03/21/24 15:43 Baso % (Auto) 2.2 % 03/21/24 15:43 Neut # (Auto) 2.48 10^3/uL (1.8-7.7) 03/21/24 15:43 Lymph # (Auto) 1.1 10^3/uL (0.8-4.8) 03/21/24 15:43 [place] # (Auto) 0.3 10^3/uL (0.2-0.9) 03/21/24 15:43 Eos # (Auto) 0.1 10^3/uL (0.0-0.8) 03/21/24 15:43 Baso # (Auto) 0.1 10^3/uL (0.0-0.1) 03/21/24 15:43 Nucleated RBC % (auto) 0 % 03/21/24 15:43 Nucleated RBCs # 0.0 /100WBC 03/21/24 15:43 Sodium 138 mmol/L (136-145) 03/21/24 15:43 Potassium 3.6 mmol/L (3.5-5.1) 03/21/24 15:43 Chloride 104 mmol/L (98-107) 03/21/24 15:43 Carbon Dioxide 22 mmol/L (22-29) 03/21/24 15:43 Anion Gap 15.6 (5-19) 03/21/24 15:43 BUN 6 mg/dL (6-20) 03/21/24 15:43 Creatinine 0.8 mg/dL (0.5-0.9) 03/21/24 15:43 GFR Calculation 74.2 mL/min (90-130) L 03/21/24 15:43 Glucose 105 mg/dL (65-115) 03/21/24 15:43 Calculated Osmolality 284 mOsm/kg (285-295) L 03/21/24 15:43 Calcium 8.5 mg/dL (8.5-10.5) 03/21/24 15:43 Total Bilirubin 0.4 mg/dL (0.15-1.2) 03/21/24 15:43 AST 20 U/L (0-32) 03/21/24 15:43 ALT 8 U/L (0-33) 03/21/24 15:43 Alkaline Phosphatase 106 U/L (35-105) H 03/21/24 15:43 Troponin T Baseline 8 ng/L (0-10) 03/21/24 15:43 NT-Pro-B Natriuret Pep 79 pg/mL (0-125) 03/21/24 15:43 Total Protein 5.3 g/dL (6.6-8.7) L 03/21/24 15:43 Albumin 3.5 g/dL (3.5-5.2) 03/21/24 15:43 Globulin 1.8 g/dL (1.3-4.6) 03/21/24 15:43 Urine Color Dark yellow (Yellow) A 03/21/24 16:15 Urine Appearance Clear (CLEAR) 03/21/24 16:15 Urine pH 5.5 (5-7) 03/21/24 16:15 Ur Specific [place] 1.018 (1.005-1.030) 03/21/24 16:15 Urine Protein Negative (Negative) 03/21/24 16:15 Urine Glucose (UA) Negative (Normal) 03/21/24 16:15 Urine Ketones Negative (Negative) 03/21/24 16:15 Urine Blood Negative (Negative) 03/21/24 16:15 Urine Nitrate Negative (Negative) 03/21/24 16:15 Urine Bilirubin 2+ (Negative) H 03/21/24 16:15 Urine Urobilinogen 1.0 mg/dL (Negative) 03/21/24 16:15 Ur Leukocyte Esterase 2+ (Negative) A 03/21/24 16:15 Urine RBC 0-4 /hpf (0-2) H 03/21/24 16:15 Urine WBC 5-10 /hpf (0-5) H 03/21/24 16:15 Ur Squamous Epith Cells 0-4 /hpf (0-5) H 03/21/24 16:15 Calcium Oxalate Crystal 0-4 /hpf H 03/21/24 16:15 Amorphous Sediment Not Reportable 03/21/24 16:15 Urine Bacteria 1+ /hpf (NONE) H 03/21/24 16:15 Hyaline Casts 15-25 /lpf H 03/21/24 16:15 Urine Mucus 2+ /hpf 03/21/24 16:15 Urine Yeast Trace /hpf 03/21/24 16:15 All radiology interpretation(s) finalized by discharge Discharge Plan Discharge Patient Disposition: Admitted As Inpatient Admit Provider: Bala Del Rosario Clinical Impression: Angina of effort Condition: Stable Coding Level of Care Code ED Lottery Sales Clerk for Reji Ashton
[2024-03-21 15:49] LABS: Basophils # 0.1 10^3/uL (0.0-0.1); Basophils % 2.2 %; Eosinophils # 0.1 10^3/uL (0.0-0.8); Eosinophils % 1.5 %; Hematocrit 33.9 % (36-47); Lymphocytes # 1.1 10^3/uL (0.8-4.8); Lymphocytes % 26.4 %; Mean Corpuscular HGB Conc 31.6 g/dL (30-55); Mean Corpuscular Volume 110.8 fl (85-98); Mean Platelet Volume 10.5 fL (7.4-10.4); Monocytes # 0.3 10^3/uL (0.2-0.9); Monocytes % 7.7 %; Neutrophils # 2.48 10^3/uL (1.8-7.7); Nucleated Red Blood Cells % 0 %; Platelet Count 231 10^3/cmm (157-399); Red Blood Count 3.06 10^6/uL (3.85-5.65); Red Cell Distribution Width 15.5 % (12.1-15.1); White Blood Count 4.01 10^3/uL (3.29-11.43)
[2024-03-21 16:11] LABS: Troponin(5th) Baseline 8 ng/L (0-10)
[2024-03-21 16:12] LABS: Alanine Aminotransferase 8 U/L (0-33); Albumin Level 3.5 g/dL (3.5-5.2); Alkaline Phosphatase 106 U/L (35-105); Anion Gap 15.6 (5-19); Aspartate Amino Transferase 20 U/L (0-32); Blood Urea Nitrogen 6 mg/dL (6-20); Calcium 8.5 mg/dL (8.5-10.5); Carbon Dioxide 22 mmol/L (22-29); Chloride 104 mmol/L (98-107); Creatinine Clr Calc Pharmacy 82.4268; Globulin 1.8 g/dL (1.3-4.6); Glomerular Filtration Rate 74.2 mL/min (90-130); Glucose 105 mg/dL (65-115); Osmolality Calculated 284 mOsm/kg (285-295); Potassium 3.6 mmol/L (3.5-5.1); Sodium 138 mmol/L (136-145); Total Bilirubin 0.4 mg/dL (0.15-1.2); Total Protein 5.3 g/dL (6.6-8.7)
[2024-03-21 16:26] LABS: Bilirubin Urine 2+ (Negative); Blood Urine Negative (Negative); Glucose Urine UA Negative (Normal); Ketones Urine Negative (Negative); Leukocyte Esterase Urine 2+ (Negative); Nitrate Urine Negative (Negative); Protein Urine Negative (Negative); Specific Gravity, Urine 1.018 (1.005-1.030); Urine Appearance Clear (CLEAR); Urine Color Dark Yellow (Yellow); pH Urine 5.5 (5-7)
[2024-03-21 16:30] LABS: Add Urine Microscopic? YES
[2024-03-21 16:52] LABS: Bacteria Urine 1+ /hpf; Calcium Oxalate Crystals Urine 0-4 /hpf; Hyaline Casts Urine 15-25 /lpf; Mucus Urine 2+ /hpf; RBC Urine 0-4 /hpf (0-2); Squamous Epithelial Cell Urine 0-4 /hpf (0-5); UA Manual Slide Review YES; UA Slide Review UA Slide Review Perf
--- NOTE | 2024-03-21 16:52 | USCV_ITS ---
Asim Harper Age: 58 Gender: F : 1965 Exam Date: 03/21/2024 18:09 Ordering Phys: Bala Del Rosario MD Technologist: Exam Location: [facility] [place] Indication: chest pain BP: 146 / 96 HR: 85 Rhythm: Sinus Technical Quality: Adequate MEASUREMENTS (Male / Female) Normal Values 2D ECHO LV Diastolic Diameter PLAX 4.0 cm 4.2 - 5.9 / 3.9 - 5.3 cm IVS Diastolic Thickness 0.8 cm 0.6 - 1.0 / 0.6 - 0.9 cm IVS Systolic Thickness 1.3 cm LVPW Diastolic Thickness 1.1 cm 0.6 - 1.0 / 0.6 - 0.9 cm LVPW Systolic Thickness 1.2 cm LVOT Diameter 2.0 cm LV Ejection Fraction 2D Teich 68.0 % LV Ejection Fraction MOD 4C 76.8 % LV Ejection Fraction MOD 2C 69.4 % LV Ejection Fraction 2C AL 69.3 % LA Diameter 2.6 cm RA Systolic Volume 4C AL 47.3 ml RA Systolic Volume 4C MOD 46.6 ml Aorta at Sinotubular Diameter 3.3 cm M-MODE LA Ao Ratio MM 1.0 AV Cusp Separation MM 2.5 cm DOPPLER AV Peak Velocity 119.0 cm/s LVOT Peak Velocity 86.0 cm/s AV Area Cont Eq vti 2.5 cm squared AV Area Cont Eq pk 2.2 cm squared MV Peak Velocity 94.0 cm/s MV Area PHT 4.2 cm squared Mitral E to A Ratio 0.8 TV Peak Velocity 204.5 cm/s TR Peak Velocity 220.0 cm/s TR Peak Gradient 19.4 mmHg TV Peak E Velocity 81.0 cm/s Right Atrial Pressure 3.0 mmHg Pulmonary Artery Systolic Pressu 22.4 mmHg PV Peak Velocity 82.0 cm/s FINDINGS Left Ventricle Left ventricle is normal size. LV systolic function is normal with EF of 60 to 65%. No regional wall motion abnormalities are seen. Grade 1 diastolic dysfunction. Right Ventricle Normal in size and function Right Atrium Normal in size Left Atrium Normal in size Mitral Valve Structurally normal mitral valve. Mild mitral regurgitation. Aortic Valve Structurally normal aortic valve. No significant stenosis. Trace aortic regurgitation. Tricuspid Valve Mild tricuspid regurgitation. Pulmonary artery systolic pressure is normal. Pulmonic Valve Not well visualized Pericardium Normal Aorta Normal in size IVC Appears to be normal CONCLUSIONS LV systolic function is normal with EF of 60-65% Grade 1 diastolic dysfunction Mild mitral regurgitation Trace aortic regurgitation Mild tricuspid regurgitation No comparison studies are available. Hayden Mcdaniels MD (Electronically Signed) Final Date: 22 March 2024 11:24 S
[2024-03-21 16:53] LABS: Add Urine Culture? Yes
--- NOTE | 2024-03-21 16:55 | PM.HP ---
Providers/Chief Complaint Primary Care Provider: Sandra Zee MD Chief Complaint: sob, Chest pain, elevated heart rate History of Present Illness Harper Dailey is a 58 year old female with a past medical history of seronegative rheumatoid arthritis, major depressive disorder, general anxiety disorder, anemia, history of bariatric surgery, who presents [facility] due to chest pain and shortness of breath. Patient tells me that for the last few months, she has developed chest pain and shortness of breath with exertion. Typically the chest pain is substernal, radiating to the back, associate with diaphoresis, shortness of breath. She tells me that she also develops tachycardia palpitations with exertion. These episodes have been having more frequently. She does at times wake up with chest pain. No orthopnea, no paroxysmal nocturnal dyspnea. Review of Systems Const: Denies: fever(s) Card: Reports: chest pain Resp: Reports: dyspnea Medications/Allergies Home Medications Medication Instructions Recorded Confirmed Last Taken Type buprenorphine HCl 8 mg sublingual 8 mg sublingual DAILY 09/24/22 03/21/24 03/04/24 History tablet topiramate 100 mg tablet 100 mg PO BID #60 tabs 10/12/22 03/21/24 03/04/24 Rx cholecalciferol (vitamin D3) 25 25 mcg PO DAILY #90 caps 12/02/22 03/21/24 03/04/24 Rx mcg (1,000 unit) capsule valacyclovir 500 mg tablet 500 mg PO BID #20 tabs 03/22/23 03/21/24 03/04/24 Rx (Valtrex) cyclobenzaprine 10 mg tablet 10 mg PO TID 05/05/23 03/21/24 03/04/24 History atogepant 60 mg tablet (Qulipta) 60 mg PO DAILY #60 tabs 09/21/23 03/21/24 03/04/24 Rx ondansetron HCl 8 mg tablet 8 mg PO DAILY 11/04/23 03/21/24 03/04/24 History prednisone 20 mg tablet See Rx Instructions .Route .COMPLEX 11/04/23 03/21/24 03/04/24 History gabapentin 300 mg capsule 300 mg PO BID 01/23/24 03/21/24 03/04/24 History leflunomide 20 mg tablet 20 mg PO DAILY #90 tabs 01/23/24 03/21/24 03/04/24 Rx prednisone 5 mg tablet 5 mg PO DAILY #90 tabs 01/23/24 03/21/24 03/04/24 Rx sulfasalazine 500 mg tablet 1 g (2 x 500 mg) PO BID #120 tabs 01/23/24 03/21/24 03/04/24 Rx valbenazine 80 mg capsule 80 mg PO DAILY #30 caps 02/01/24 03/21/24 03/04/24 Rx (Ingrezza) cariprazine 1.5 mg capsule 1.5 mg PO DAILY #30 caps 02/06/24 03/21/24 03/04/24 Rx (Vraylar) duloxetine 60 mg capsule,delayed 60 mg PO DAILY #30 caps 02/06/24 03/21/24 03/04/24 Rx release syringe with needle, safety 3 mL #100 ea 02/21/24 03/21/24 03/04/24 Rx 25 gauge x 5/8 (Monoject Safety Syringes) levothyroxine 75 mcg tablet 75 mcg PO DAILY 03/01/24 03/21/24 03/04/24 History pantoprazole 40 mg tablet,delayed 40 mg PO BID 03/01/24 03/21/24 03/04/24 History release nystatin 100,000 unit/gram topical 1 applic topical BID #60 grams 03/12/24 03/21/24 Unknown Rx powder sucralfate 100 mg/mL oral 10 ml PO TID #1,000 mL 03/12/24 03/21/24 Unknown Rx suspension albuterol sulfate 90 mcg/actuation 2 puff inhalation Q6H PRN 03/21/24 03/21/24 Unknown History aerosol inhaler (Ventolin HFA) Allergies Allergy/AdvReac Type Severity Reaction Status Date / Time azithromycin Allergy Mild ALGY-Rash Verified 03/21/24 09:58 mirtazapine [From Remeron] Allergy Mild ALGY-Rash Verified 03/21/24 09:58 tolmetin Allergy ALGY-Rash Verified 03/21/24 09:58 PFSH Acute PFSH: Medical History Polypharmacy Tachycardia IBS (irritable bowel syndrome) Fibromyalgia Acquired hypothyroidism Headache, chronic migraine without aura, intractable Chronic low back pain GERD with esophagitis Tardive dyskinesia Chronic pancreatitis currently resolved Seronegative rheumatoid arthritis of both hands MDD (major depressive disorder) Inflammatory arthritis Depression with anxiety Joint pain High risk medication use Psychiatric care Surgical History Bariatric surgery status History of esophagogastroduodenoscopy (EGD) Hx of colonoscopy with polypectomy History of carpal tunnel surgery of right wrist 2023 Hx of breast biopsy right' X 2; both benign History of Titi-en-Y gastric bypass History of hysterectomy Hyst due to prolapse, no cancer; ovaries remaining History of cholecystectomy History of shoulder surgery bilateral; for frozen shoulders History of tonsillectomy and adenoidectomy Family History Mother Cancer Breast Cancer Migraines Hypertension Diabetes mellitus, type 2 Grandmother Cancer Colon Other Chronic kidney disease (CKD) Diabetes Hyperlipidemia Lung disease Rheumatoid arthritis Stroke Denies family history of Lupus CAD (coronary artery disease) Psoriatic arthritis Social History Smoking and tobacco/nicotine status: never used tobacco/nicotine Second hand smoke exposure: No Alcohol intake: never Substance/Drug Use: current Substance/Drug use frequency: few times a week Other substance/drug use details: Gummies Household members: none Marital status: Legally Number of children: 3 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 Reproductive History: Spontaneous abortions: No Vitals/I&O/Wt Last Vital Signs Temp 98.1 F 03/21/24 14:53 Pulse 95 03/21/24 15:47 Resp 20 H 03/21/24 15:47 BP 131/95 03/21/24 15:47 Pulse Ox 94 03/21/24 15:47 O2 Del Method Room Air 03/21/24 14:53 Weight last 48 hrs Weight 80.739 kg Physical Exam Const: COMMON NORMALS: no acute distress and patient oriented x3 HENMT: COMMON NORMALS: normocephalic HEAD & SCALP: normocephalic Eye: COMMON NORMALS: Equal, round and reactive pupils present Neck/C-Spine: COMMON NORMALS: no JVD Resp: COMMON NORMALS: normal respiratory effort, No retractions, No use of accessory muscles and clear to auscultation bilaterally AUSCULTATION: clear to auscultation bilaterally Cardio: COMMON NORMALS: regular rate, regular rhythm, S1 normal heart sound present and S2 normal heart sound present RATE: regular rate RHYTHM: regular rhythm HEART SOUNDS: S1 normal heart sound present and S2 normal heart sound present GI: COMMON NORMALS: Normal to inspection, nondistended, normoactive bowel sounds present, Soft to palpation and non-tender PALPATION: Yes Soft to palpation Extremity: COMMON NORMALS: capillary refill normal, no clubbing, cyanosis or edema, no calf tenderness and no pedal edema Neuro: COMMON NORMALS: patient oriented x3, CN's II-XII intact bilaterally and moves all extremities Psych: COMMON NORMALS: mental status grossly normal Data 03/21/24 15:43 03/21/24 15:43 A&P Assessment and plan (1) Chest pain: Plan Exertional chest pain -Serial EKGs, serial troponins, telemetry monitoring -Aspirin, statin -Nitro as needed for chest pain -Telemetry monitoring -Cardiac echo -N.p.o. over midnight -Cardiac stress test in the morning -Full code -Lovenox for DVT prophylaxis Attestations Medical Necessity Statement*: Patient requires hospitalization, inpatient, greater than 2 midnights, for exertional chest pain Diagnoses Chest pain R07.9
--- NOTE | 2024-03-21 17:35 | ECG_ITS ---
[facility] Test Date: 2024-03-22 Pat Name: Harper Dailey Department: Room: 104 Gender: Female Hospital Fellow: : 1965 Requested By: Bala Del Rosario Order Number: [id number] Jenny MD: Neftali Holloway M.D. Interpretive Statements Lung unchanged pre/post procedure; Intraprocedure shortess of breath; Symptoms resoled by discharge Lexiscan/sestamibi/sestamibi stress test PROCEDURE: At the baseline, the EKG revealed normal sinus rhythm with some nonspecific ST-T changes. Poor R wave progression.. The baseline heart was 94 bpm with a blood pressue of 146/89 mm of Hg Lexiscan was infused over a period of 20 seconds. A total of 0.4 milligrams of Lexiscan was infused. The stress phase was continued for a total of 5 minutes. Heart rate at the end of the stress phase was 170 bpm with a blood pressure 137/75 mm of Hg. The EKG at the peak infusion revealed nonspecific ST-T changes with rare PVCs. Sestamibi was injected 20 seconds after the Lexiscan infusion. Heart rate at the end of the recovery phase was 91 bpm with a blood pressure of 127/81 mm of Hg. CONCLUSION: 1. Nonspecific EKG changes with the LexiScan infusion 2. No LexiScan induced chest pain or cardiac arrhythmia 3. Normal blood pressure and heart rate response 4. Sestamibi/sestamibi perfusion scan pending; see separate report. Electronically Signed On 03-25-2024 20:17:36 CDT by Neftali Holloway M.D. [email or web address]
--- NOTE | 2024-03-21 17:41 | ECG_ITS ---
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 Measurements Intervals [place] Rate: 80 P: 53 AL: 146 QRS: 26 QRSD: 88 T: 27 QT: 346 QTc: 401 Interpretive Statements SINUS RHYTHM Compared to ECG 03/21/2024 14:45:18 Sinus tachycardia no longer present T-wave abnormality no longer present Electronically Signed On 03-21-2024 23:09:57 CDT by Neftali Holloway M.D. [id number]
[2024-03-21 17:51] LABS: NT Pro B Type Natriuretic Pept 79 pg/mL (0-125)
[2024-03-21] MEDS: enoxaparin 40 mg/0.4 mL Syringe SUBCUT (18:09)
[2024-03-21 18:33] LABS: Troponin 5 2HR 6.85 ng/L (0-10); Troponin 5 2HR Delta -1.15 ABS# (0-10)
[2024-03-21 18:50] LABS: Chol HDL Ratio 4.02 mg/dL (0.0-4.40); Cholesterol 197 mg/dL (0-200); HDL Cholesterol 49 mg/dL (60-100); LDL Cholesterol Calculated 123 mg/dL (50-129); LDL HDL Ratio 2.51 RATIO (0.00-3.22); Thyroid Stimulating Hormone 0.71 uIU/mL (0.27-4.20); Triglycerides 123 mg/dL (0-150)
[2024-03-21] MEDS: aspirin 81 mg EC Tablet PO (19:31)
[2024-03-21] MEDS: topiramate 100 mg Tablet PO (19:31)
[2024-03-21] MEDS: gabapentin 300 mg Capsule PO (19:31)
[2024-03-21 20:19] LABS: Estmated Average Glucose 65; Hemoglobin A1C 3.9 % (4.0-6.0)
[2024-03-21] MEDS: sucralfate 1 gm/10 mL Oral Liq UDC PO (20:24)
[2024-03-21] MEDS: atorvastatin 40 mg Tablet PO (20:24)
[2024-03-21] MEDS: nitroglycerin 0.4 mg sublingual Tablet SUBLINGUAL (22:07)
--- NOTE | 2024-03-21 22:08 | PC.NURSE ---
c/o chest pain bp 128/93 pulse 100, 02 100, nitro given sublingual
[2024-03-21 22:12] LABS: Troponin 5 6HR 6.89 ng/L (0-10)
[2024-03-21 22:21] LABS: Troponin 5 6HR Delta -1.11 ng/L (0-12)
[2024-03-21] MEDS: acetaminophen 325 mg Tablet 650 MG PO (22:25)
[2024-03-21] MEDS: pantoprazole 40 mg SDV IVP (22:26)
[2024-03-22] VITALS (57 sets, daily range): BP systolic 128–148; BP diastolic 84–97; PULSE 62–122; RESP 9–31; TEMP 36.8–37.1; O2SAT 73–100
[2024-03-22] MEDS: regadenoson 0.4 Mg/5 ml Syringe IVP (07:47)
[2024-03-22] MEDS: aminophylline 25 mg/mL SDV 10 mL IVP (08:00)
--- NOTE | 2024-03-22 09:06 | PC.NURSE ---
Patient remains off floor for cardiac stress test.
[2024-03-22] MEDS: duloxetine 60 mg Capsule PO (09:27)
[2024-03-22] MEDS: pantoprazole 40 mg SDV IVP ×2 (09:27→21:36)
[2024-03-22] MEDS: sucralfate 1 gm/10 mL Oral Liq UDC PO ×3 (09:27→20:27)
[2024-03-22] MEDS: topiramate 100 mg Tablet PO ×2 (09:27→17:06)
[2024-03-22] MEDS: aspirin 81 mg EC Tablet PO (09:27)
[2024-03-22] MEDS: gabapentin 300 mg Capsule PO ×2 (09:27→17:06)
[2024-03-22] MEDS: cefTRIAXone 1,000 mg SDV 1000 MG IVP (09:27)
[2024-03-22] MEDS: levothyroxine 75 mcg Tablet PO (09:27)
[2024-03-22] MEDS: acetaminophen 325 mg Tablet 650 MG PO (09:36)
--- NOTE | 2024-03-22 14:57 | P.PN_ITS ---
Subjective 2 Subjective: Patient was seen this morning, she does report chest pain overnight, with exertion Vitals/I&O/Wt Last Vital Signs Temp 98.8 F 03/22/24 12:00 Pulse 96 03/22/24 12:00 Resp 18 03/22/24 12:00 BP 148/97 03/22/24 12:00 Pulse Ox 97 03/22/24 12:00 O2 Del Method Room Air 03/22/24 12:00 O2 Flow Rate 1 03/21/24 23:36 03/21/24 03/22/24 03/22/24 22:59 06:59 14:59 Intake Total 270 / 270 Output Total 500 / 500 1200 / 1200 Balance 270 / 270 -500 / -230 -1200 / -1200 Weight last 48 hrs Weight 80.824 kg Weight 82.1 kg Weight 80.739 kg Physical Exam 2 Const: COMMON NORMALS: no acute distress and patient oriented x3 Resp: COMMON NORMALS: normal respiratory effort, No retractions, No use of accessory muscles and clear to auscultation bilaterally AUSCULTATION: clear to auscultation bilaterally Cardio: COMMON NORMALS: regular rate, regular rhythm, S1 normal heart sound present and S2 normal heart sound present RATE: regular rate RHYTHM: r egular rhythm HEART SOUNDS: S1 normal heart sound present and S2 normal heart sound present GI: COMMON NORMALS: Normal to inspection, nondistended, normoactive bowel sounds present and non-tender Extremity: COMMON NORMALS: no pedal edema Neuro: COMMON NORMALS: patient oriented x3 Psych: COMMON NORMALS: mental status grossly normal Data 03/21/24 15:43 03/21/24 15:43 A&P Assessment and plan (1) Chest pain: Plan Exertional chest pain -Serial EKGs, serial troponins, telemetry monitoring -Aspirin, statin -Nitro as needed for chest pain -Telemetry monitoring -Cardiac echo CONCLUSIONS LV systolic function is normal with EF of 60-65% Grade 1 diastolic dysfunction Mild mitral regurgitation Trace aortic regurgitation Mild tricuspid regurgitation No comparison studies are available. -Cardiac stress test in the morning -Evidence of UTI -Evidence of folic acid deficiency start folic acid -Full code -Lovenox for DVT prophylaxis Attestations 2 Medical Necessity Statement*: Patient requires hospitalization for exertional chest pain, Diagnoses Chest pain R07.9
[2024-03-22] MEDS: folic acid 1 mg Tablet PO (17:06)
[2024-03-22] MEDS: enoxaparin 40 mg/0.4 mL Syringe SUBCUT (17:06)
--- NOTE | 2024-03-22 17:20 | P.CONIM_ITS ---
Providers/Reason For Consult 2 Consulting Physician/Specialty*: ROD Holloway MD/cardiology Reason for Consult*: Patient with chest pain Requesting Physician: Dr. Del Rosario Attending Physician: Bala Del Rosario MD Primary Care Provider: Sandra Zee MD History of Present Illness History of Present Illness Harper Dailey is a 58 year old female is admitted to hospital with complaints of chest pain. She had an echocardiogram in the Myocardial perfusion imaging. Both were essentially unremarkable. Patient continues to have chest pain even with minimal activities. Cardiology consult is requested for further cardiac evaluation recommendations. This patient is known to have high blood pressure, rheumatoid arthritis, fibromyalgia and multiple other medical problems. For the last 3 months or so, she has been having pain in the mid substernal region, radiating across the chest, occasionally to the back and also to the neck. Almost always these symptoms are precipitated with exertion. The intensity of the pain is 6-7/10. It may last for 45 minutes and then subside spontaneously with rest. She has associated shortness of breath and heart pounding. The heart rate seems to be going up with activities. She has no nausea or vomiting. No sweating, dizziness or syncopal episodes. No other associated symptoms or radiation of pain. This patient has no previous history for coronary artery disease, myocardial infarction or congestive heart failure. She had a weight loss surgery 15 years ago and might have lost around 120 pounds. She has a severe migrainous headache and back pain and is on disability for for these. She apparently developed tardive dyskinesia from some of the medications. She was hypertensive prior to the weight loss surgery and then was taken off medications after the surgery. She started taking blood pressure medication again 6 months ago or so. No history for diabetes or any dyslipidemia. She had a Lexiscan /sestamibi/sestamibi stress test. The Lexiscan infusion caused some nonspecific ST-T changes. Perfusion scan was essentially unremarkable. Review of Systems 2 Narrative: CONSTITUTIONAL: No fever or chills. EYES: No blurring of vision or other visual disturbances lately. ENT: No hoarseness of voice, auditory disturbances or sore throat. CARDIOVASCULAR: As mentioned above. RESPIRATORY: No significant cough. GASTROINTESTINAL: History of GERD GENITOURINARY: No dysuria or hematuria. INTEGUMENTARY: No skin rashes or history of skin cancer. NEURO: No transient ischemic attacks or amaurosis. PSYCHIATRIC: Anxiety/depressive illness, bipolar disorder HEMATOLOGIC: History of chronic anemia ENDOCRINE: Hypothyroidism MUSCULOSKELETAL: Rheumatoid arthritis/fibromyalgia as ALLERGY/IMMUNOLOGY: As mentioned above. Medications/Allergies Home Medications Medication Instructions Recorded Confirmed Last Taken Type buprenorphine HCl 8 mg sublingual 8 mg sublingual DAILY 09/24/22 03/21/24 03/04/24 History tablet topiramate 100 mg tablet 100 mg PO BID #60 tabs 10/12/22 03/21/24 03/20/24 Rx cholecalciferol (vitamin D3) 25 25 mcg PO DAILY #90 caps 12/02/22 03/22/24 03/04/24 Rx mcg (1,000 unit) capsule cyclobenzaprine 10 mg tablet 10 mg PO TID 05/05/23 03/22/24 03/21/24 History atogepant 60 mg tablet (Qulipta) 60 mg PO DAILY #60 tabs 09/21/23 03/22/24 03/04/24 Rx ondansetron HCl 8 mg tablet 8 mg PO DAILY 11/04/23 03/22/24 03/21/24 History prednisone 20 mg tablet See Rx Instructions .Route 11/04/23 03/22/24 03/04/24 History .COMPLEX PRN joint pain gabapentin 300 mg capsule 300 mg PO BID 01/23/24 03/21/24 03/21/24 History leflunomide 20 mg tablet 20 mg PO DAILY #90 tabs 01/23/24 03/22/24 03/21/24 Rx prednisone 5 mg tablet 5 mg PO DAILY #90 tabs 01/23/24 03/22/24 03/21/24 Rx sulfasalazine 500 mg tablet 1 g (2 x 500 mg) PO BID #120 tabs 01/23/24 03/22/24 03/21/24 Rx valbenazine 80 mg capsule 80 mg PO DAILY #30 caps 02/01/24 03/22/24 03/22/24 Rx (Ingrezza) cariprazine 1.5 mg capsule 1.5 mg PO DAILY #30 caps 02/06/24 03/22/24 03/21/24 Rx (Vraylar) duloxetine 60 mg capsule,delayed 60 mg PO DAILY #30 caps 02/06/24 03/22/24 03/21/24 Rx release syringe with needle, safety 3 mL #100 ea 02/21/24 03/22/24 03/04/24 Rx 25 gauge x 5/8 (Monoject Safety Syringes) levothyroxine 75 mcg tablet 75 mcg PO DAILY 03/01/24 03/21/24 03/21/24 History pantoprazole 40 mg tablet,delayed 40 mg PO BID 03/01/24 03/21/24 03/20/24 History release nystatin 100,000 unit/gram topical 1 applic topical BID #60 grams 03/12/24 03/22/24 03/21/24 Rx powder sucralfate 100 mg/mL oral 10 ml PO TID #1,000 mL 03/12/24 03/21/24 03/21/24 Rx suspension Allergies Allergy/AdvReac Type Severity Reaction Status Date / Time azithromycin Allergy Mild ALGY-Rash Verified 03/21/24 09:58 mirtazapine [From Remeron] Allergy Mild ALGY-Rash Verified 03/21/24 09:58 tolmetin Allergy ALGY-Rash Verified 03/21/24 09:58 Current Medications Generic Name Dose Route Start Last Admin Trade Name Freq PRN Reason Stop Dose Admin Acetaminophen 650 mg 03/21/24 17:35 03/22/24 09:36 Acetaminophen 325 Mg Tablet PO 650 mg Q6H PRN Administration Mild/Mod Pain Or Temp >/= 101 Aminophylline 25 mg 03/22/24 06:14 03/22/24 08:00 Aminophylline 25 Mg/Ml Sdv 10 Ml IVP 03/23/24 06:13 25 mg Q2M PRN Administration see dose instructions Aspirin 81 mg 03/21/24 17:35 03/22/24 09:27 Aspirin 81 Mg Ec Tablet PO 81 mg DAILY KATH Administration Atorvastatin Calcium 40 mg 03/21/24 21:00 03/21/24 20:24 Atorvastatin 40 Mg Tablet PO 40 mg BEDTIME KATH Administration Ceftriaxone Sodium 1,000 mg 03/22/24 08:30 03/22/24 09:27 Ceftriaxone 1,000 Mg Sdv IVP 1,000 mg Q24H KATH Administration Protocol Duloxetine HCl 60 mg 03/22/24 09:00 03/22/24 09:27 Duloxetine 60 Mg Capsule PO 60 mg DAILY KATH Administration Enoxaparin Sodium 40 mg 03/21/24 17:35 03/22/24 17:06 Enoxaparin 40 Mg/0.4 Ml Syringe SUBCUT 40 mg Q24H KATH Administration Folic Acid 1 mg 03/22/24 15:00 03/22/24 17:06 Folic Acid 1 Mg Tablet PO 1 mg Q12H KATH Administration Gabapentin 300 mg 03/21/24 18:00 03/22/24 17:06 Gabapentin 300 Mg Capsule PO 300 mg BID KATH Administration Levothyroxine Sodium 75 mcg 03/22/24 09:00 03/22/24 09:27 Levothyroxine 75 Mcg Tablet PO 75 mcg DAILY KATH Administration Nitroglycerin 0.4 mg 03/21/24 17:35 03/21/24 22:07 Nitroglycerin 0.4 Mg Sublingual Tablet SUBLINGUAL 0.4 mg Q5M PRN Administration CHEST PAIN Pantoprazole Sodium 40 mg 03/21/24 17:35 03/22/24 09:27 Pantoprazole 40 Mg Sdv IVP 40 mg Q12H KATH Administration Sucralfate 1 gm 03/21/24 21:00 03/22/24 14:45 Sucralfate 1 Gm/10 Ml Oral Liq Udc PO 1 gm TID KATH Administration Topiramate 100 mg 03/21/24 18:00 03/22/24 17:06 Topiramate 100 Mg Tablet PO 100 mg BID KATH Administration PFSH Acute 2 PFSH: Medical History Polypharmacy Tachycardia IBS (irritable bowel syndrome) Fibromyalgia Acquired hypothyroidism Headache, chronic migraine without aura, intractable Chronic low back pain GERD with esophagitis Tardive dyskinesia Chronic pancreatitis currently resolved Seronegative rheumatoid arthritis of both hands MDD (major depressive disorder) Inflammatory arthritis Depression with anxiety Joint pain High risk medication use Psychiatric care Surgical History Bariatric surgery status History of esophagogastroduodenoscopy (EGD) Hx of colonoscopy with polypectomy History of carpal tunnel surgery of right wrist 2023 Hx of breast biopsy right' X 2; both benign History of Titi-en-Y gastric bypass History of hysterectomy Hyst due to prolapse, no cancer; ovaries remaining History of cholecystectomy History of shoulder surgery bilateral; for frozen shoulders History of tonsillectomy and adenoidectomy Family History Mother Cancer Breast Cancer Migraines Hypertension Diabetes mellitus, type 2 Grandmother Cancer Colon Other Chronic kidney disease (CKD) Diabetes Hyperlipidemia Lung disease Rheumatoid arthritis Stroke Denies family history of Lupus CAD (coronary artery disease) Psoriatic arthritis Social History Smoking and tobacco/nicotine status: never used tobacco/nicotine Second hand smoke exposure: No Alcohol intake: never Substance/Drug Use: current Substance/Drug use frequency: few times a week Other substance/drug use details: Bhargav Household members: none Marital status: Legally Number of children: 3 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 Not in any acute distress. HEENT: No significant pallor, icterus or lymphadenopathy.Oral cavity: There are no mucous membrane lesions. NECK: Trachea appears to be central. No masses noted. No JVD or thyromegaly appreciated. RESPIRATORY: Chest is symmetrical. No intercostals muscle retraction or any accessory muscle activation. There is no chest wall tenderness. Breath sounds are heard bilaterally. No rales or rhonchi heard. No evidence of any consolidation. BREASTS: Deferred. HEART: The heart sounds are normal. No S3 or S4. No significant murmurs. No pericardial rub ABDOMEN: No vessel pulsations or distention. No tenderness. No organomegaly appreciated. Bowel sounds are normally heard. : Deferred. RECTAL: Deferred. LYMPHATIC: No lymphadenopathy noted in the neck. EXTREMITIES: No edema or cyanosis. No clubbing. MUSCULOSKELETAL: No acute joint deformities or swelling SKIN: There are no significant rashes or ecchymosis NEUROPSYCHIATRIC: The patient is alert and oriented x3. Appears to be in a good mood. No tremors or rigidity noted. Data 03/23/24 03:19 03/23/24 03:19 Other Labs: Laboratory Last Values WBC 4.01 10^3/uL (3.29-11.43) 03/21/24 15:43 RBC 3.06 10^6/uL (3.85-5.65) L 03/21/24 15:43 Hgb 10.70 g/dL (11.27-16.99) L 03/21/24 15:43 Hct 33.9 % (36-47) L 03/21/24 15:43 MCV 110.8 fl (85-98) H 03/21/24 15:43 MCH 35.0 pg (27-33) H 03/21/24 15:43 MCHC 31.6 g/dL (30-55) 03/21/24 15:43 RDW 15.5 % (12.1-15.1) H 03/21/24 15:43 Plt Count 231 10^3/cmm (157-399) 03/21/24 15:43 MPV 10.5 fL (7.4-10.4) H 03/21/24 15:43 Neut % (Auto) 62.0 % 03/21/24 15:43 Lymph % (Auto) 26.4 % 03/21/24 15:43 [place] % (Auto) 7.7 % 03/21/24 15:43 Eos % (Auto) 1.5 % 03/21/24 15:43 Baso % (Auto) 2.2 % 03/21/24 15:43 Neut # (Auto) 2.48 10^3/uL (1.8-7.7) 03/21/24 15:43 Lymph # (Auto) 1.1 10^3/uL (0.8-4.8) 03/21/24 15:43 [place] # (Auto) 0.3 10^3/uL (0.2-0.9) 03/21/24 15:43 Eos # (Auto) 0.1 10^3/uL (0.0-0.8) 03/21/24 15:43 Baso # (Auto) 0.1 10^3/uL (0.0-0.1) 03/21/24 15:43 Nucleated RBC % (auto) 0 % 03/21/24 15:43 Nucleated RBCs # 0.0 /100WBC 03/21/24 15:43 Sodium 138 mmol/L (136-145) 03/21/24 15:43 Potassium 3.6 mmol/L (3.5-5.1) 03/21/24 15:43 Chloride 104 mmol/L (98-107) 03/21/24 15:43 Carbon Dioxide 22 mmol/L (22-29) 03/21/24 15:43 Anion Gap 15.6 (5-19) 03/21/24 15:43 BUN 6 mg/dL (6-20) 03/21/24 15:43 Creatinine 0.8 mg/dL (0.5-0.9) 03/21/24 15:43 GFR Calculation 74.2 mL/min (90-130) L 03/21/24 15:43 Glucose 105 mg/dL (65-115) 03/21/24 15:43 Estimat Average Glucose 65 03/21/24 18:08 Hemoglobin A1c 3.9 % (4.0-6.0) L 03/21/24 18:08 Calculated Osmolality 284 mOsm/kg (285-295) L 03/21/24 15:43 Calcium 8.5 mg/dL (8.5-10.5) 03/21/24 15:43 Total Bilirubin 0.4 mg/dL (0.15-1.2) 03/21/24 15:43 AST 20 U/L (0-32) 03/21/24 15:43 ALT 8 U/L (0-33) 03/21/24 15:43 Alkaline Phosphatase 106 U/L (35-105) H 03/21/24 15:43 Troponin T Baseline 8 ng/L (0-10) 03/21/24 15:43 Troponin T 120 Minute 6.85 ng/L (0-10) 03/21/24 18:08 Delta Troponin T -1.15 ABS# (0-10) L 03/21/24 18:08 Troponin T Hi Sens 6Hr 6.89 ng/L (0-10) 03/21/24 21:44 Troponin T Hi Sens 6Hr Delta -1.11 ng/L (0-12) L 03/21/24 21:44 NT-Pro-B Natriuret Pep 79 pg/mL (0-125) 03/21/24 15:43 Total Protein 5.3 g/dL (6.6-8.7) L 03/21/24 15:43 Albumin 3.5 g/dL (3.5-5.2) 03/21/24 15:43 Globulin 1.8 g/dL (1.3-4.6) 03/21/24 15:43 Triglycerides 123 mg/dL (0-150) 03/21/24 18:08 Cholesterol 197 mg/dL (0-200) 03/21/24 18:08 LDL Cholesterol, Calc 123 mg/dL (50-129) 03/21/24 18:08 HDL Cholesterol 49 mg/dL (60-100) L 03/21/24 18:08 LDL/HDL Ratio 2.51 RATIO (0.00-3.22) 03/21/24 18:08 Cholesterol/HDL Ratio 4.02 mg/dL (0.0-4.40) 03/21/24 18:08 TSH 0.71 uIU/mL (0.27-4.20) 03/21/24 18:08 Urine Color Dark yellow (Yellow) A 03/21/24 16:15 Urine Appearance Clear (CLEAR) 03/21/24 16:15 Urine pH 5.5 (5-7) 03/21/24 16:15 Ur Specific [place] 1.018 (1.005-1.030) 03/21/24 16:15 Urine Protein Negative (Negative) 03/21/24 16:15 Urine Glucose (UA) Negative (Normal) 03/21/24 16:15 Urine Ketones Negative (Negative) 03/21/24 16:15 Urine Blood Negative (Negative) 03/21/24 16:15 Urine Nitrate Negative (Negative) 03/21/24 16:15 Urine Bilirubin 2+ (Negative) H 03/21/24 16:15 Urine Urobilinogen 1.0 mg/dL (Negative) 03/21/24 16:15 Ur Leukocyte Esterase 2+ (Negative) A 03/21/24 16:15 Urine RBC 0-4 /hpf (0-2) H 03/21/24 16:15 Urine WBC 5-10 /hpf (0-5) H 03/21/24 16:15 Ur Squamous Epith Cells 0-4 /hpf (0-5) H 03/21/24 16:15 Calcium Oxalate Crystal 0-4 /hpf H 03/21/24 16:15 Amorphous Sediment Not Reportable 03/21/24 16:15 Urine Bacteria 1+ /hpf (NONE) H 03/21/24 16:15 Hyaline Casts 15-25 /lpf H 03/21/24 16:15 Urine Mucus 2+ /hpf 03/21/24 16:15 Urine Yeast Trace /hpf 03/21/24 16:15 Other data: The EKG showed Normal sinus rhythm with a normal ST Ts. Myocardial perfusion imaging from today 1. Myocardial perfusion imaging revealing possible uniform mitral tracer uptake with no significant Perfusion normalities. Minimal to moderately decreased tracer uptake at rest, in the supine position, most likely is artifactual. 2. Normal LV ejection fraction of 83%. 3. LV wall motion analysis revealing no gross wall motion abnormalities. 4. Normal LV volume Low probability for coronary ischemia, based on the above findings No similar previous studies are available for comparison The echocardiogram revealed LV systolic function is normal with EF of 60-65% Grade 1 diastolic dysfunction Mild mitral regurgitation Trace aortic regurgitation Mild tricuspid regurgitation No comparison studies are available A&P Assessment and plan (1) Chest pain: This patient seem to have worsening chest pains over the last 2 to 3 months. Even with minimal activities, she seems to be very symptomatic. The symptoms are unexplained at this time. The symptoms are very disabling at this point. She has an unremarkable echocardiogram and a Myocardial perfusion imaging. Possibility of a PE is a consideration. If she has no evidence of PE, we may consider a cardiac catheterization to further evaluate her symptoms and then decide on further management Qualifiers: Chest pain type: other chest pain Qualified Code(s): R07.89 - Other chest pain (2) Tachycardia: I may start her on a low-dose of beta-charlene namely metoprolol 25 mg p.o. twice daily. (3) GREENE (dyspnea on exertion): Etiology is unclear. Coronary ischemia, PE are considerations. (4) Depression with anxiety: May continue on the current management (5) Anemia: Continue on the current management. Qualifiers: Anemia type: folate deficiency Folate deficiency anemia type: dietary Qualified Code(s): D52.0 - Dietary folate deficiency anemia (6) Seronegative rheumatoid arthritis of both hands: May continue on the current management. (7) Benign hypertension: For the hypertension as well as for the exertional palpitation, it may be appropriate to start the patient on metoprolol 25 mg p.o. twice daily. Plan A CT of the chest rule out PE would be appropriate. If there is no evidence of PE, may go ahead and schedule for a cardiac catheterization tomorrow. Based on the results, further recommendations will be made Thank for the opportunity to help this patient make these recommendations Consult Attestations 2 Medical Necessity Statement: Patient requires continued hospital stay for close monitoring and further management Coding Level of Care Code 69012 Diagnoses Other chest pain R07.89 Chest pain type: other chest pain Tachycardia R00.0 GREENE (dyspnea on exertion) R06.09 Depression with anxiety F41.8 Dietary folate deficiency anemia D52.0 Anemia type: folate deficiency Folate deficiency anemia type: dietary Seronegative rheumatoid arthritis of both hands M06.041; M06.042 Benign hypertension I10
--- NOTE | 2024-03-22 17:35 | NMCV_ITS ---
NM clarissa perf SPECT r/s* [id number] Harper Dailey Age: 58 Gender: F : 1965 Exam Date: 03/22/2024 06:31 Ordering Phys: Bala Del Rosario MD Technologist: EDGAR Tucker Exam Location: [facility] Indications: CP STRESS TEST Please see separate stress test report in [facility] for full findings IMAGE PROTOCOL Rest/Stress 1 Lexiscan Day Radiopharmaceutical Dose (mCi) Administration Site Administered by Rest: Tc-99m 10.9 IV Patricia Kellen, [employer] Sestamibi Stress:Tc-99m 32.9 IV Patricia Kellen, [employer] MANAGER Sestamibi Rest: 22-Mar-2024 60 Discovery 630 Stress: 22-Mar-2024 30 Discovery 630 0.4mg Lexiscan. Images obtained in supine and prone position. SPECT RESULTS Technical Quality: Good Raw Data Analysis: Adequate Image Corrections: No attenuation or motion correction applied Summed Stress Score: 0 Summed Rest Score: 8 Summed Difference Score: 0 PERFUSION FINDINGS Minimal to moderately decreased tracer uptake was noted in the inferior, inferolateral and apical segments in the resting phase. However uniform tracer uptake was noted both in the supine and prone imaging. FUNCTIONAL RESULTS (calculated via Gated SPECT) Stress Image LV EF (%): 83 Stress EDV (mL):40 TID: 0.76 Stress ESV (mL):7 FUNCTIONAL FINDINGS: Segmental wall motion analysis revealing no gross wall motion abnormalities IMPRESSIONS 1. Myocardial perfusion imaging revealing possible uniform mitral tracer uptake with no significant Perfusion normalities. Minimal to moderately decreased tracer uptake at rest, in the supine position, most likely is artifactual. 2. Normal LV ejection fraction of 83%. 3. LV wall motion analysis revealing no gross wall motion abnormalities. 4. Normal LV volume Low probability for coronary ischemia, based on the above findings No similar previous studies are available for comparison Dr Neftali Holloway MD [facility] (Electronically Signed) Final Date: 22 March 2024 13:35 S
--- NOTE | 2024-03-22 18:18 | CTR_ITS ---
PROCEDURE INFORMATION: Exam: CTA Chest With Contrast Exam date and time: 03/22/2024 7:11 PM Age: 58 years old Clinical indication: Angina; Additional info: Pe/chest pain TECHNIQUE: Imaging protocol: Computed tomographic angiography of the chest with contrast. Exam focused on the arteries. 3D rendering (Not supervised by radiologist): MIP and/or 3D reconstructed images were created by the technologist. Radiation optimization: All CT scans at this facility use at least one of these dose optimization techniques: automated exposure control; mA and/or kV adjustment per patient size (includes targeted exams where dose is matched to clinical indication); or iterative reconstruction. Contrast material: OMNI 350; Contrast volume: 65 ml; Contrast route: INTRAVENOUS (IV); COMPARISON: CR XR chest 1V portable [id number] 03/21/2024 3:24 PM RADIATION DOSE METRICS: Total DLP (mGy-cm): 371 FINDINGS: Pulmonary arteries: Normal. No pulmonary emboli. Aorta: Ascending thoracic aorta dilated to 3.9 cm. Lungs: Bibasilar atelectasis. Pleural spaces: Unremarkable. No pneumothorax. No pleural effusion. Heart: Unremarkable. No cardiomegaly. No pericardial effusion. Coronary arteries: Coronary artery atherosclerotic calcifications. Lymph nodes: Unremarkable. No enlarged lymph nodes. Gallbladder and biliary ducts: Cholecystectomy. Stomach: Gastric surgical sutures. Bones/joints: Unremarkable. No acute fracture. Soft tissues: Unremarkable. CT/CT angio chest PE protcl [id number] IMPRESSION: 1. Negative for pulmonary embolus. 2. Ascending thoracic aorta dilated to 3.9 cm. 3. Coronary artery atherosclerotic calcifications. 4. Cholecystectomy. 5. Gastric surgical sutures. 6. Bibasilar atelectasis.
--- NOTE | 2024-03-22 18:20 | PC.NURSE ---
Received call from Dr Del Rosario. He gave orders for CTA/PE protocl and NPO after midnight for possible LHC tomorrow.
[2024-03-22] MEDS: iohexol 350 mg/mL 500 mL Btl (per mL) IV (19:14)
[2024-03-22] MEDS: metoprolol tartrate 25 mg Tablet PO (20:27)
[2024-03-22] MEDS: atorvastatin 40 mg Tablet PO (20:27)
[2024-03-23] VITALS (53 sets, daily range): BP systolic 84–164; BP diastolic 64–105; PULSE 61–93; RESP 11–27; TEMP 36.7–37.1; O2SAT 88–100
[2024-03-23 04:10] LABS: Basophils # 0.1 10^3/uL (0.0-0.1); Basophils % 1.7 %; Eosinophils # 0.2 10^3/uL (0.0-0.8); Eosinophils % 4.4 %; Hematocrit 33.9 % (36-47); Lymphocytes # 1.4 10^3/uL (0.8-4.8); Lymphocytes % 38.3 %; Mean Corpuscular HGB Conc 30.7 g/dL (30-55); Mean Corpuscular Hemoglobin 34.1 pg (27-33); Mean Corpuscular Volume 111.1 fl (85-98); Mean Platelet Volume 11.6 fL (7.4-10.4); Monocytes # 0.3 10^3/uL (0.2-0.9); Monocytes % 9.4 %; Neutrophils # 1.65 10^3/uL (1.8-7.7); Neutrophils % 45.9 %; Nucleated Red Blood Cells % 0 %; Platelet Count 184 10^3/cmm (157-399); Red Blood Count 3.05 10^6/uL (3.85-5.65); Red Cell Distribution Width 15.5 % (12.1-15.1)
[2024-03-23 04:30] LABS: Anion Gap 11.3 (5-19); Blood Urea Nitrogen 6 mg/dL (6-20); Calcium 8.4 mg/dL (8.5-10.5); Carbon Dioxide 25 mmol/L (22-29); Chloride 109 mmol/L (98-107); Creatinine Clr Calc Pharmacy 94.9478; Glomerular Filtration Rate 86.6 mL/min (90-130); Glucose 90 mg/dL (65-115); Osmolality Calculated 291 mOsm/kg (285-295); Potassium 3.3 mmol/L (3.5-5.1); Sodium 142 mmol/L (136-145)
[2024-03-23] MEDS: folic acid 1 mg Tablet PO ×2 (05:50→17:09)
--- NOTE | 2024-03-23 06:44 | XACV_ITS ---
Exam Room: 2 Ht: 165 cm Wt: 82 kg BSA: 1.96 m2 Gender: Female : 1965 Any Known Allergies: Other Exam Priority: Routine Procedure(s): Procedure Description: Diagnostic procedure Procedure Description: Left Heart Catheterization Procedure Description: Left ventriculography Procedure Description: Miscellaneous Procedure Description: Angio-Seal Procedure Description: Coronary Angiography Procedure Description: Pressure Wire Jewel CLEMONS; Diagnostic Cath Status: Urgent Diagnostic Findings * Left main is a medium caliber vessel with no significant stenotic lesions. * The left and descending artery is a medium caliber vessel which appears to wraparound LV apex minimally. The proximal LAD was found to have around 50% tapering stenosis. The mid LAD was found to have diffuse narrowing of around 20%. No other significant lesions. * The left circumflex artery is a medium caliber vessel with no significant stenotic lesions. * The right coronary artery is a medium caliber dominant vessel with no significant stenotic lesions. PCI Status: Urgent Interventional Findings * Procedure detail: We engaged left main artery with XB 3.5 guide catheter. After normalization, we advanced IFR wire into distal LAD. iFR value of 0.95 was obtained that was non-ischemic. At this time IFR wire was pulled back and final angiogram was performed. Patient left the blood bank laboratory professional in a stable condition. . Conclusions 1. This 58-year-old white female with a history of hypertension, rheumatoid arthritis, fibromyalgia, anxiety/depressive illness and multiple other medical problems presenting with exertional angina, shortness of breath and heart pounding. She had a Myocardial perfusion imaging which was unremarkable. Her echocardiogram also was unremarkable. However the patient continued to have exertional chest pain/chest heaviness associated with shortness of breath and heart pounding. Her symptoms are sounding very disabling. A chest CT was done to rule out pulmonary embolism. She did not have any evidence of embolism. She was found to have coronary calcification and dilated ascending aorta of 3.9 cm. In view of the patient's ongoing disabling symptoms, in order to further evaluate her coronary status, a cardiac catheterization was recommended. Patient underwent left heart catheterization with left and right coronary angiogram and LV angiogram today. The findings are as follows.. 2. Around 50% tapering lesion in the proximal left anterior sending artery. Right dominant coronary circulation. No significant lesions in the other arteries. Normal LV ejection fraction 65%. LVEDP of 7 mmHg. Mildly dilated ascending aorta. 3. In view of the patient's disabling symptoms, it is thought to be appropriate to consider IFR of the proximal LAD lesion . I reviewed and discussed the cardiac catheterization data with the Dr Mcdaniels. Dr. Mcdaniels concurred with this plan and took over further management of this patient at this point. 4. iFR is normal. Medical therapy. Recommendations * Aggressive medical therapy. * Outpatient cardiology follow up in 4 weeks. Interventional RX Recommendation: medical therapy and/or counseling Diagnostic RX Recommendation: other cardiac therapy w/o CABG/PCI Anticoagulation: Heparin Ventriculography Ejection Fraction: 65.0 % LV EDP: 7 mmHg Left Ventriculography Findings: * The LV gram was performed in the [place] projection. The LV cavity appears to be of normal size. LV ejection fraction was within normal limits, 65%. LVEDP was 7 mmHg. There was no filling defects. No intracavitary masses. No significant mitral valve prolapse or mitral regurgitation. Pressures Phase:Rest AO : 132 / 74 ( 99 ) @ 1:11:00 PM 130 / 62 ( 97 ) @ 1:11:00 PM 184 / 112 ( 139 ) @ 1:28:00 PM LV : 127 / -13 / 7 @ 1:10:00 PM 129 / -7 / 14 @ 1:11:00 PM 128 / -8 / 15 @ 1:11:00 PM Valves Phase:DefaultPhase AV : 0.0 @ 12:44:59 PM AV Mean Gradient: 0.0 @ 12:44:59 PM Clinical Evaluation EBL: 5mL-10mL Procedural Details Pre-Procedure Time Out. Identified patient by full name and date of as verbalized by the patient/guarantor. Does the consent match the physician's order: Yes. Accurate & Complete Informed Consent: Yes. Inpatient/Outpatient History & Physical on Chart: Yes. If H&P is completed, is and addenduem needed: No; If yes, is the addendum complete: N/A. Visualize and Verify Site with Patient/Guarantor: N/A. Relevant Radiology Images available: Yes. Pre-op teaching completed and patient verbalized understanding. The risks, benefits, and alternatives of sedation and/or procedure were discussed by physician. The patient agrees to continue. Procedure started. Current Diagnosis : Chest Pain. [facility] Clinical Fraility Score: 3: Managing Well. 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 Chest Pain Symptom Assessment: Typical Angina Symptoms. Cardiovascular Instability: No. Correct patient, site and procedure confirmed by cath team. PERRLA. 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 Lungs clear x 5 lobes. IV Site on Arrival: 20 gauge in the left wrist. IV Fluids: 0.9% NaCl at KVO. 50 mL infused prior to blood bank laboratory professional. Pre Procedural Pulses: bilateral radial was 2+. Oxygen started at 2liters/min via nasal canula. right groin was prepped with chloroprep then draped in the usual sterile fashion. right radial was prepped with chloroprep then draped in the usual sterile fashion. Physician notified. Baseline sample Acquired. HR: 61 BPM. Patient's family in the blood bank laboratory professional waiting room. Dr. Holloway will update at the completion of the procedure. Equipment: 6F - Radial. Cardiac Cath Pack. ACIST Manifold Kit Model BT 2000. Heparinized Saline (2 units/mL), 1000 mL bag. Physician arrived. Physician scrubbed in. Immediate Pre-Procedure Time Out. Correct Patient: Yes; Correct Procedure: Yes; Correct Site: Yes; Correct Patient Position: Yes; Correct Supplies: Yes; Dried Flammable Prep: Yes; Blood Products Available: N/A;. Lidocaine 1% infiltrated to the right radial. Unable to obtain radial access. MD attempting to gain access in the Femoral artery. Lidocaine 1% infiltrated to the right groin. Arterial access obtained with micropuncture set. A 5 [place] JL4 catheter in over wire. Multiple views taken of left coronary artery. A 5 [place] JR4 catheter in over wire. Multiple views taken of right coronary artery. Catheter removed over the standard wire. Catheter removed over the standard wire. A Right femoral angiogram was performed to determine safe placement of closure device. A 5 [place] Angled Pig catheter in over wire. EDP Sample taken: LV 127/-14,7; HR: 73 BPM; SpO2: 93%. LV gram performed in [place]OM[place]ON @ 10 mL/second for a total of 30 mL. EDP Sample taken: LV 129/-8,14; HR: 72 BPM; SpO2: 92%. Pullback taken: LV 128/-8,15; AO 132/74(99); Mean: 0mmHg, Peak to Peak: 0mmHg, SEP: 6sec/min; HR: 73 BPM; SpO2: 94%. Catheter removed over the standard wire. Physician scrubbed out. Dr. Mcdaniels called to view cineography. Dr. Mcdaniels scrubbed in. 6 [place] XB 3.5 guide catheter was inserted over the wire. iFR guidewire was advanced through the guide catheter to lesion in the prox LAD. iFR spot of the Proximal LAD 0.95 with a pullback of 0.95. iFR wire out. Guide catheter out. ACT drawn. Results 163 seconds. Therapeutic limits - pre-heparin administration 90-150 seconds and monitoring heparin during a vascular procedure >250 seconds. A Right femoral angiogram was performed to determine safe placement of closure device. Medication's Wasted: Verapamil = 5 mg. Medication's Wasted: Nitro = 50 mg. Medication's Wasted: Heparin = units. Total IV fluids: 90 mL. Medication's Wasted: Other = Versed 1 mg. Medication's Wasted: Other = Fentanyl 25 mcg. Lidocaine 1% infiltrated to the right groin. A Angio-Seal VIP ([place]) was successful obtaining hemostatsis at the Right Femoral artery insertion site. Lot #[id number]. Exp. 2024-10-17. Post Procedure: bilateral dorsalis pedis pulse Doppled. Post Procedure: bilateral posterior tibial pulse Doppled. PERRLA. 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 No VTE prophylaxis required. Medication's Wasted: Lidocaine 1% = 15 mL. Post-op diagnosis: Non-obstructive CAD. Complications: none. Estimated blood loss: 5mL-10mL. Responsiveness - Normal response to verbal stimuli; alert and oriented, PERRLA. Airway - Unaffected, no intervention required; spontaneous ventilation. Circulation: W/N/L, pulses unchanged. Nausea/Vomiting: No. Procedure completed. Patient transferred by bed to 1st floor. Vital chart was stopped. Access Site Site: Right Femoral artery Sheath Size: 6 Fr Hemostasis Method: Angio-Seal VIP ([place]) Hemostasis Success: Successful Procedure Medications Start: 11:36 AM Stop: 11:36 AM Medication: Versed Amount: 1 mg Route: I.V. Start: 11:36 AM Stop: 11:36 AM Medication: Fentanyl Amount: 50 mcg Route: I.V. Start: 11:44 AM Stop: 11:44 AM Medication: Fentanyl Amount: 25 mcg Route: I.V. Start: 11:51 AM Stop: 11:51 AM Medication: Versed Amount: 1 mg Route: I.V. Start: 11:54 AM Stop: 11:54 AM Medication: Versed Amount: 1 mg Route: I.V. Start: 12:02 PM Stop: 12:02 PM Medication: Heparin Amount: 1500 mg Route: I.V. Start: 12:27 PM Stop: 12:27 PM Medication: Heparin Amount: 6000 units Route: I.V. I, the attending physician, have reviewed and verified all procedure medications. Yes, all medications given per verbal order History/Risk Factors Hypertension: Yes Dyslipidemia: No Peripheral Arterial Disease (PAD): No Myocardial Infarction (ME): No Obesity: No Renal Disease: No Tobacco Use: Never Prior Interventions PCI: No CABG: No Valve Surgery: No Report Signatures Interventional Workflow Finalized by Hayden Mcdaniels MD on 03/30/2024 01:59 PM Diagnostic Workflow Finalized by Dr Neftali Holloway MD [facility] on 03/23/2024 06:29 PM
[2024-03-23] MEDS: sucralfate 1 gm/10 mL Oral Liq UDC PO ×3 (08:42→21:04)
[2024-03-23] MEDS: topiramate 100 mg Tablet PO ×2 (08:42→17:09)
[2024-03-23] MEDS: acetaminophen 325 mg Tablet 650 MG PO ×2 (08:42→21:18)
[2024-03-23] MEDS: gabapentin 300 mg Capsule PO ×2 (08:42→17:10)
[2024-03-23] MEDS: duloxetine 60 mg Capsule PO (08:42)
[2024-03-23] MEDS: levothyroxine 75 mcg Tablet PO (08:42)
[2024-03-23] MEDS: aspirin 81 mg EC Tablet PO (08:42)
[2024-03-23] MEDS: pantoprazole 40 mg SDV IVP ×2 (08:43→21:05)
[2024-03-23] MEDS: metoprolol tartrate 25 mg Tablet PO (08:46)
--- NOTE | 2024-03-23 08:58 | PC.NURSE ---
Dr Del Rosario in patient's room. Patient c/o Rocephin IVP burning upon administration. Received instruction to hold IVP dose. MD will change to oral medication. Instructed patient on change. Patient verbalized thanks and understanding. Will continue to monitor.
[2024-03-23] MEDS: diphenhydrAMINE 50 mg Capsule PO (10:03)
[2024-03-23] MEDS: sodium chloride 0.9% 1,000 ML 50 ML IV (10:03)
--- NOTE | 2024-03-23 11:16 | PC.SOCIAL ---
IMM Updated IMM dated and initialed, copy placed in chart and given to patient.
--- NOTE | 2024-03-23 11:21 | P.PN_ITS ---
Subjective 2 Subjective: Patient is feeling okay. She had the CTA of the chest yesterday which revealed no evidence of pulmonary embolism. Medications: Medication Review Details: Current Medications Acetaminophen (Acetaminophen 325 Mg Tablet) 650 mg PO Q6H PRN PRN Reason: Mild/Mod Pain Or Temp >/= 101 Last Admin: 03/23/24 08:42 Dose: 650 mg Albuterol Sulfate (Albuterol 2.5 Mg/3 Ml Neb) 2.5 mg INHALATION Q6H.RESP PRN PRN Reason: SHORTNESS OF BREATH Aspirin (Aspirin 81 Mg Ec Tablet) 81 mg PO DAILY [facility] Last Admin: 03/23/24 08:42 Dose: 81 mg Atorvastatin Calcium (Atorvastatin 40 Mg Tablet) 40 mg PO BEDTIME [facility] Last Admin: 03/22/24 20:27 Dose: 40 mg Ceftriaxone Sodium (Ceftriaxone 1,000 Mg Sdv) 1,000 mg IVP Q24H [facility]; Protocol Last Admin: 03/23/24 08:58 Dose: Not Given Duloxetine HCl (Duloxetine 60 Mg Capsule) 60 mg PO DAILY [facility] Last Admin: 03/23/24 08:42 Dose: 60 mg Enoxaparin Sodium (Enoxaparin 40 Mg/0.4 Ml Syringe) 40 mg SUBCUT Q24H [facility] Last Admin: 03/22/24 17:06 Dose: 40 mg Folic Acid (Folic Acid 1 Mg Tablet) 1 mg PO Q12H KATH Last Admin: 03/23/24 05:50 Dose: 1 mg Gabapentin (Gabapentin 300 Mg Capsule) 300 mg PO BID [facility] Last Admin: 03/23/24 08:42 Dose: 300 mg Sodium Chloride (Sodium Chloride 0.9%) 1,000 mls @ 50 mls/hr IV .Q20H ONE Stop: 03/24/24 05:59 Last Admin: 03/23/24 10:03 Dose: 50 mls/hr Levothyroxine Sodium (Levothyroxine 75 Mcg Tablet) 75 mcg PO DAILY [facility] Last Admin: 03/23/24 08:42 Dose: 75 mcg Metoprolol Tartrate (Metoprolol Tartrate 25 Mg Tablet) 25 mg PO BID@0900,2100 [facility] Last Admin: 03/23/24 08:46 Dose: 25 mg Multivitamins Therapeutic (Multivitamin Therapeutic Tablet) 1 tab PO DAILY [facility] Nitroglycerin (Nitroglycerin 0.4 Mg Sublingual Tablet) 0.4 mg SUBLINGUAL Q5M PRN PRN Reason: CHEST PAIN Last Admin: 03/21/24 22:07 Dose: 0.4 mg Non-Formulary Medication (Atogepant [Qulipta]) 60 mg PO DAILY [facility] Non-Formulary Medication (Buprenorphine Hcl) 8 mg SUBLINGUAL DAILY [facility] Non-Formulary Medication (Cariprazine [Vraylar]) 1.5 mg PO DAILY [facility] Non-Formulary Medication (Valbenazine [Ingrezza]) 80 mg PO DAILY [facility] Ondansetron HCl (Ondansetron 2 Mg/Ml Sdv 2 Ml) 4 mg IVP Q6H PRN PRN Reason: NAUSEA AND VOMITING Ondansetron HCl (Ondansetron 2 Mg/Ml Sdv 2 Ml) 4 mg IVP Q2M PRN PRN Reason: NAUSEA Pantoprazole Sodium (Pantoprazole 40 Mg Sdv) 40 mg IVP Q12H [facility] Last Admin: 03/23/24 08:43 Dose: 40 mg Sucralfate (Sucralfate 1 Gm/10 Ml Oral Liq Udc) 1 gm PO TID [facility] Last Admin: 03/23/24 08:42 Dose: 1 gm Topiramate (Topiramate 100 Mg Tablet) 100 mg PO BID [facility] Last Admin: 03/23/24 08:42 Dose: 100 mg Vitals/I&O/Wt Last Vital Signs Temp 98.6 F 03/23/24 08:00 Pulse 73 03/23/24 08:00 Resp 15 03/23/24 08:00 BP 142/86 03/23/24 08:00 Pulse Ox 98 03/23/24 08:00 O2 Del Method Room Air 03/23/24 08:00 O2 Flow Rate 1 03/21/24 23:36 03/22/24 03/23/24 03/23/24 22:59 06:59 14:59 Intake Total 480 / 480 0 / 480 Output Total 500 / 1700 450 / 2150 350 / 350 Balance -20 / -1220 -450 / -1670 -350 / -350 Weight last 48 hrs Weight 180 lb 14.4 oz Weight 178 lb 3 oz Weight 181 lb Weight 178 lb Physical Exam 2 Narrative: GENERAL: The patient is alert and oriented times three. Not in any acute distress. HEENT: No significant pallor, icterus or lymphadenopathy.Oral cavity: There are no mucous membrane lesions. NECK: Trachea appears to be central. No masses noted. No JVD or thyromegaly appreciated. RESPIRATORY: Chest is symmetrical. No intercostals muscle retraction or any accessory muscle activation. There is no chest wall tenderness. Breath sounds are heard bilaterally. No rales or rhonchi heard. No evidence of any consolidation. BREASTS: Deferred. HEART: The heart sounds are normal. No S3 or S4. No significant murmurs. No pericardial rub ABDOMEN: No vessel pulsations or distention. No tenderness. No organomegaly appreciated. Bowel sounds are normally heard. : Deferred. RECTAL: Deferred. LYMPHATIC: No lymphadenopathy noted in the neck. EXTREMITIES: No edema or cyanosis. No clubbing. MUSCULOSKELETAL: No acute joint deformities or swelling SKIN: There are no significant rashes or ecchymosis NEUROPSYCHIATRIC: The patient is alert and oriented x3. Appears to be in a good mood. No tremors or rigidity noted. Data 03/23/24 03:19 03/23/24 03:19 Other Labs: Laboratory Last Values WBC 3.60 10^3/uL (3.29-11.43) 03/23/24 03:19 RBC 3.05 10^6/uL (3.85-5.65) L 03/23/24 03:19 Hgb 10.40 g/dL (11.27-16.99) L 03/23/24 03:19 Hct 33.9 % (36-47) L 03/23/24 03:19 MCV 111.1 fl (85-98) H 03/23/24 03:19 MCH 34.1 pg (27-33) H 03/23/24 03:19 MCHC 30.7 g/dL (30-55) 03/23/24 03:19 RDW 15.5 % (12.1-15.1) H 03/23/24 03:19 Plt Count 184 10^3/cmm (157-399) 03/23/24 03:19 MPV 11.6 fL (7.4-10.4) H 03/23/24 03:19 Neut % (Auto) 45.9 % 03/23/24 03:19 Lymph % (Auto) 38.3 % 03/23/24 03:19 Hall % (Auto) 9.4 % 03/23/24 03:19 Eos % (Auto) 4.4 % 03/23/24 03:19 Baso % (Auto) 1.7 % 03/23/24 03:19 Neut # (Auto) 1.65 10^3/uL (1.8-7.7) L 03/23/24 03:19 Lymph # (Auto) 1.4 10^3/uL (0.8-4.8) 03/23/24 03:19 Hall # (Auto) 0.3 10^3/uL (0.2-0.9) 03/23/24 03:19 Eos # (Auto) 0.2 10^3/uL (0.0-0.8) 03/23/24 03:19 Baso # (Auto) 0.1 10^3/uL (0.0-0.1) 03/23/24 03:19 Nucleated RBC % (auto) 0 % 03/23/24 03:19 Nucleated RBCs # 0.0 /100WBC 03/23/24 03:19 Sodium 142 mmol/L (136-145) 03/23/24 03:19 Potassium 3.3 mmol/L (3.5-5.1) L 03/23/24 03:19 Chloride 109 mmol/L (98-107) H 03/23/24 03:19 Carbon Dioxide 25 mmol/L (22-29) 03/23/24 03:19 Anion Gap 11.3 (5-19) 03/23/24 03:19 BUN 6 mg/dL (6-20) 03/23/24 03:19 Creatinine 0.7 mg/dL (0.5-0.9) 03/23/24 03:19 GFR Calculation 86.6 mL/min (90-130) L 03/23/24 03:19 Glucose 90 mg/dL (65-115) 03/23/24 03:19 Estimat Average Glucose 65 03/21/24 18:08 Hemoglobin A1c 3.9 % (4.0-6.0) L 03/21/24 18:08 Calculated Osmolality 291 mOsm/kg (285-295) 03/23/24 03:19 Calcium 8.4 mg/dL (8.5-10.5) L 03/23/24 03:19 Total Bilirubin 0.4 mg/dL (0.15-1.2) 03/21/24 15:43 AST 20 U/L (0-32) 03/21/24 15:43 ALT 8 U/L (0-33) 03/21/24 15:43 Alkaline Phosphatase 106 U/L (35-105) H 03/21/24 15:43 Troponin T Baseline 8 ng/L (0-10) 03/21/24 15:43 Troponin T 120 Minute 6.85 ng/L (0-10) 03/21/24 18:08 Delta Troponin T -1.15 ABS# (0-10) L 03/21/24 18:08 Troponin T Hi Sens 6Hr 6.89 ng/L (0-10) 03/21/24 21:44 Troponin T Hi Sens 6Hr Delta -1.11 ng/L (0-12) L 03/21/24 21:44 NT-Pro-B Natriuret Pep 79 pg/mL (0-125) 03/21/24 15:43 Total Protein 5.3 g/dL (6.6-8.7) L 03/21/24 15:43 Albumin 3.5 g/dL (3.5-5.2) 03/21/24 15:43 Globulin 1.8 g/dL (1.3-4.6) 03/21/24 15:43 Triglycerides 123 mg/dL (0-150) 03/21/24 18:08 Cholesterol 197 mg/dL (0-200) 03/21/24 18:08 LDL Cholesterol, Calc 123 mg/dL (50-129) 03/21/24 18:08 HDL Cholesterol 49 mg/dL (60-100) L 03/21/24 18:08 LDL/HDL Ratio 2.51 RATIO (0.00-3.22) 03/21/24 18:08 Cholesterol/HDL Ratio 4.02 mg/dL (0.0-4.40) 03/21/24 18:08 TSH 0.71 uIU/mL (0.27-4.20) 03/21/24 18:08 Urine Color Dark yellow (Yellow) A 03/21/24 16:15 Urine Appearance Clear (CLEAR) 03/21/24 16:15 Urine pH 5.5 (5-7) 03/21/24 16:15 Ur Specific [place] 1.018 (1.005-1.030) 03/21/24 16:15 Urine Protein Negative (Negative) 03/21/24 16:15 Urine Glucose (UA) Negative (Normal) 03/21/24 16:15 Urine Ketones Negative (Negative) 03/21/24 16:15 Urine Blood Negative (Negative) 03/21/24 16:15 Urine Nitrate Negative (Negative) 03/21/24 16:15 Urine Bilirubin 2+ (Negative) H 03/21/24 16:15 Urine Urobilinogen 1.0 mg/dL (Negative) 03/21/24 16:15 Ur Leukocyte Esterase 2+ (Negative) A 03/21/24 16:15 Urine RBC 0-4 /hpf (0-2) H 03/21/24 16:15 Urine WBC 5-10 /hpf (0-5) H 03/21/24 16:15 Ur Squamous Epith Cells 0-4 /hpf (0-5) H 03/21/24 16:15 Calcium Oxalate Crystal 0-4 /hpf H 03/21/24 16:15 Amorphous Sediment Not Reportable 03/21/24 16:15 Urine Bacteria 1+ /hpf (NONE) H 03/21/24 16:15 Hyaline Casts 15-25 /lpf H 03/21/24 16:15 Urine Mucus 2+ /hpf 03/21/24 16:15 Urine Yeast Trace /hpf 03/21/24 16:15 Micro: Microbiology 03/21/24 16:15 Urine Culture - Preliminary Urine,Clean Catch A&P Assessment and plan (1) Chest pain: This patient seem to have worsening chest pains over the last 2 to 3 months. Even with minimal activities, she seems to be very symptomatic. The symptoms are unexplained at this time. The symptoms are very disabling at this point. She has an unremarkable echocardiogram and a Myocardial perfusion imaging. Possibility of a PE is a consideration. If she has no evidence of PE, we may consider a cardiac catheterization to further evaluate her symptoms and then decide on further management. The CT was done which revealed no evidence of pulm embolism. She was found to have mildly dilated ascending aorta with coronary atherosclerosis So we will go ahead and do the cardiac catheterization today. The need for the study was discussed with the patient in detail. The risk of bleeding, hematoma, vascular injury, myocardial infarction, myocardial perforation, malignant cardiac arrhythmias ,CVA, renal failure and other concomitant complications were explained in detail. Patient understood this well and consented to proceed Qualifiers: Chest pain type: other chest pain Qualified Code(s): R07.89 - Other chest pain (2) Tachycardia: I may start her on a low-dose of beta-charlene namely metoprolol 25 mg p.o. twice daily. Patient seems to be tolerating the medication so far well (3) GREENE (dyspnea on exertion): Etiology is unclear. Most likely related to underlying coronary ischemia. Based on the angiogram findings, further recommendations will be made. (4) Depression with anxiety: May continue on the current management (5) Anemia: Continue on the current management. Qualifiers: Anemia type: folate deficiency Folate deficiency anemia type: dietary Qualified Code(s): D52.0 - Dietary folate deficiency anemia (6) Seronegative rheumatoid arthritis of both hands: May continue on the current management. (7) Benign hypertension: For the hypertension as well as for the exertional palpitation, it may be appropriate to start the patient on metoprolol 25 mg p.o. twice daily. Plan Patient angiogram findings, further recommendations will be made Attestations 2 Medical Necessity Statement*: Patient requires continued hospital stay for close monitoring and further management Coding Level of Care Code 46040 Diagnoses Other chest pain R07.89 Chest pain type: other chest pain Tachycardia R00.0 GREENE (dyspnea on exertion) R06.09 Depression with anxiety F41.8 Dietary folate deficiency anemia D52.0 Anemia type: folate deficiency Folate deficiency anemia type: dietary Seronegative rheumatoid arthritis of both hands M06.041; M06.042 Benign hypertension I10
--- NOTE | 2024-03-23 11:31 | W.PM.OPSUD ---
Surgery/Procedure H&P Update DATE OF PROCEDURE: March 23, 2024 DATE H&P PERFORMED: 03/22/24 H&P UPDATE INFORMATION: I have reviewed H&P completed within last 30 days, I have examined patient prior to procedure and No changes to prior documentation PREOP DIAGNOSIS: ASHD PRIMARY INDICATION FOR PROCEDURE: Unstable anginal symptoms, shortness of breath, coronary atherosclerosis by CTA PLANNED PROCEDURE: Operation Date: 03/23/24 10:50 Proposed Procedures p Cardiac Catheterization(Left) - Neftali Holloway MD PATIENT REASSESSED PRIOR TO SEDATION, WITH NO CHANGE NOTED: Yes PHYSICAL EXAM: alert, oriented x 3, clear to auscultation bilaterally and regular rate & rhythm AIRWAY EVAL/ANESTHESIA PLAN: see other exam findings, ASA III, Monitored Anesthesia, Local Anesthesia, Risks, benefits & alternatives of sedation and/or procedure discussed and Patient agrees to continue as planned
--- NOTE | 2024-03-23 12:18 | PM.DCS ---
Discharge Providers Date of Admission: 03/21/24 17:29 Date of Discharge: March 24, 2024 Attending Provider at Admission: Bala Del Rosario MD Attending Provider at Discharge: Bala Del Rosario MD Primary Care Provider: Sandra Zee MD Diagnoses at Discharge Discharge Diagnosis (1) Chest pain: Status: Acute Qualifiers: Chest pain type: other chest pain Qualified Code(s): R07.89 - Other chest pain (2) Tachycardia: Status: Chronic (3) GREENE (dyspnea on exertion): Status: Acute (4) Depression with anxiety: Status: Chronic (5) Anemia: Status: Chronic Qualifiers: Anemia type: folate deficiency Folate deficiency anemia type: dietary Qualified Code(s): D52.0 - Dietary folate deficiency anemia (6) Seronegative rheumatoid arthritis of both hands: Status: Chronic (7) Benign hypertension: Status: Acute Reason for Visit Reason for Visit: sob, Chest pain, elevated heart rate Hospital Course Hospital Course Harper Dailey is a 58 year old female with a past medical history of seronegative rheumatoid arthritis, major depressive disorder, general anxiety disorder, anemia, history of bariatric surgery, who presents [facility] due to chest pain and shortness of breath. Patient tells me that for the last few months, she has developed chest pain and shortness of breath with exertion. Typically the chest pain is substernal, radiating to the back, associate with diaphoresis, shortness of breath. She tells me that she also develops tachycardia palpitations with exertion. These episodes have been having more frequently. She does at times wake up with chest pain. No orthopnea, no paroxysmal nocturnal dyspnea. Patient was admitted to [facility] for chest pain shortness of breath CTA of chest CT/CT angio chest PE protcl [id number] IMPRESSION: 1. Negative for pulmonary embolus. 2. Ascending thoracic aorta dilated to 3.9 cm. 3. Coronary artery atherosclerotic calcifications. 4. Cholecystectomy. 5. Gastric surgical sutures. 6. Bibasilar atelectasis. cardiac stress test IMPRESSIONS 1. Myocardial perfusion imaging revealing possible uniform mitral tracer uptake with no significant Perfusion normalities. Minimal to moderately decreased tracer uptake at rest, in the supine position, most likely is artifactual. 2. Normal LV ejection fraction of 83%. 3. LV wall motion analysis revealing no gross wall motion abnormalities. 4. Normal LV volume Low probability for coronary ischemia, based on the above findings No similar previous studies are available for comparison cardiac echo CONCLUSIONS LV systolic function is normal with EF of 60-65% Grade 1 diastolic dysfunction Mild mitral regurgitation Trace aortic regurgitation Mild tricuspid regurgitation No comparison studies are available. -Due to persistent chest pain and shortness of breath complaints, cardiology was consulted -Underwent coronary angiography, had 60% LAD lesion, IFR was not significant, no stent was placed, -She was managed on Imdur, however complains of headaches -Will be discharged on metoprolol 25 twice daily -Follow-up with cardiology as outpatient -Will have her follow-up with pulmonary as outpatient for consideration of pulmonary function testing -Discharged on aspirin, statin -Also found to have anemia, macrocytic anemia, folic acid deficiency, discharged on folic acid Physical Exam Const: COMMON NORMALS: no acute distress and patient oriented x3 Resp: COMMON NORMALS: normal respiratory effort, No retractions, No use of accessory muscles and clear to auscultation bilaterally AUSCULTATION: clear to auscultation bilaterally Cardio: COMMON NORMALS: regular rate, regular rhythm, S1 normal heart sound present and S2 normal heart sound present RATE: regular rate RHYTHM: regular rhythm HEART SOUNDS: S1 normal heart sound present and S2 normal heart sound present GI: COMMON NORMALS: Normal to inspection, nondistended, normoactive bowel sounds present and non-tender Extremity: COMMON NORMALS: no pedal edema Neuro: COMMON NORMALS: patient oriented x3 Psych: COMMON NORMALS: mental status grossly normal Discharge Data Studies Completed and Pending Completed Studies During Hospitalization Category Date Time Status CTA PE [CT angio chest PE protcl [id number]] Routine Cat Scan 03/22/24 18:18 Completed Sestamibi Stress Test Request Routine Exams 03/21/24 17:35 Draft XR chest 1V portable [id number] Stat Exams 03/21/24 15:19 Completed NM clarissa perf SPECT r/s* [id number] Routine Nuc Med 03/22/24 17:35 Completed CV. echo complete* [id number] Stat Ultrasound 03/21/24 16:52 Completed Pending at discharge Category Date Time Status ASSISTANT MERCHANDIS[facility] request for service Routine Exams 03/23/24 06:44 Ordered Basic Metabolic Panel AM LABS Lab 03/24/24 04:00 Ordered Basic Metabolic Panel AM LABS Lab 03/25/24 04:00 Ordered Complete Blood Count w/Auto AM LABS Lab 03/24/24 04:00 Ordered Complete Blood Count w/Auto AM LABS Lab 03/25/24 04:00 Ordered Urine Culture Stat Lab 03/21/24 16:15 Results Radiology Impressions Chest X-Ray 03/21/24 15:19 Impression: Negative chest. Chest CTA 03/22/24 18:18 IMPRESSION: 1. Negative for pulmonary embolus. 2. Ascending thoracic aorta dilated to 3.9 cm. 3. Coronary artery atherosclerotic calcifications. 4. Cholecystectomy. 5. Gastric surgical sutures. 6. Bibasilar atelectasis. Laboratory Results WBC 3.60 10^3/uL (3.29-11.43) 03/23/24 03:19 RBC 3.05 10^6/uL (3.85-5.65) L 03/23/24 03:19 Hgb 10.40 g/dL (11.27-16.99) L 03/23/24 03:19 Hct 33.9 % (36-47) L 03/23/24 03:19 MCV 111.1 fl (85-98) H 03/23/24 03:19 MCH 34.1 pg (27-33) H 03/23/24 03:19 MCHC 30.7 g/dL (30-55) 03/23/24 03:19 RDW 15.5 % (12.1-15.1) H 03/23/24 03:19 Plt Count 184 10^3/cmm (157-399) 03/23/24 03:19 MPV 11.6 fL (7.4-10.4) H 03/23/24 03:19 Neut % (Auto) 45.9 % 03/23/24 03:19 Lymph % (Auto) 38.3 % 03/23/24 03:19 Dillon % (Auto) 9.4 % 03/23/24 03:19 Eos % (Auto) 4.4 % 03/23/24 03:19 Baso % (Auto) 1.7 % 03/23/24 03:19 Neut # (Auto) 1.65 10^3/uL (1.8-7.7) L 03/23/24 03:19 Lymph # (Auto) 1.4 10^3/uL (0.8-4.8) 03/23/24 03:19 Dillon # (Auto) 0.3 10^3/uL (0.2-0.9) 03/23/24 03:19 Eos # (Auto) 0.2 10^3/uL (0.0-0.8) 03/23/24 03:19 Baso # (Auto) 0.1 10^3/uL (0.0-0.1) 03/23/24 03:19 Nucleated RBC % (auto) 0 % 03/23/24 03:19 Nucleated RBCs # 0.0 /100WBC 03/23/24 03:19 Sodium 142 mmol/L (136-145) 03/23/24 03:19 Potassium 3.3 mmol/L (3.5-5.1) L 03/23/24 03:19 Chloride 109 mmol/L (98-107) H 03/23/24 03:19 Carbon Dioxide 25 mmol/L (22-29) 03/23/24 03:19 Anion Gap 11.3 (5-19) 03/23/24 03:19 BUN 6 mg/dL (6-20) 03/23/24 03:19 Creatinine 0.7 mg/dL (0.5-0.9) 03/23/24 03:19 GFR Calculation 86.6 mL/min (90-130) L 03/23/24 03:19 Glucose 90 mg/dL (65-115) 03/23/24 03:19 Estimat Average Glucose 65 03/21/24 18:08 Hemoglobin A1c 3.9 % (4.0-6.0) L 03/21/24 18:08 Calculated Osmolality 291 mOsm/kg (285-295) 03/23/24 03:19 Calcium 8.4 mg/dL (8.5-10.5) L 03/23/24 03:19 Total Bilirubin 0.4 mg/dL (0.15-1.2) 03/21/24 15:43 AST 20 U/L (0-32) 03/21/24 15:43 ALT 8 U/L (0-33) 03/21/24 15:43 Alkaline Phosphatase 106 U/L (35-105) H 03/21/24 15:43 Troponin T Baseline 8 ng/L (0-10) 03/21/24 15:43 Troponin T 120 Minute 6.85 ng/L (0-10) 03/21/24 18:08 Delta Troponin T -1.15 ABS# (0-10) L 03/21/24 18:08 Troponin T Hi Sens 6Hr 6.89 ng/L (0-10) 03/21/24 21:44 Troponin T Hi Sens 6Hr Delta -1.11 ng/L (0-12) L 03/21/24 21:44 NT-Pro-B Natriuret Pep 79 pg/mL (0-125) 03/21/24 15:43 Total Protein 5.3 g/dL (6.6-8.7) L 03/21/24 15:43 Albumin 3.5 g/dL (3.5-5.2) 03/21/24 15:43 Globulin 1.8 g/dL (1.3-4.6) 03/21/24 15:43 Triglycerides 123 mg/dL (0-150) 03/21/24 18:08 Cholesterol 197 mg/dL (0-200) 03/21/24 18:08 LDL Cholesterol, Calc 123 mg/dL (50-129) 03/21/24 18:08 HDL Cholesterol 49 mg/dL (60-100) L 03/21/24 18:08 LDL/HDL Ratio 2.51 RATIO (0.00-3.22) 03/21/24 18:08 Cholesterol/HDL Ratio 4.02 mg/dL (0.0-4.40) 03/21/24 18:08 TSH 0.71 uIU/mL (0.27-4.20) 03/21/24 18:08 Urine Color Dark yellow (Yellow) A 03/21/24 16:15 Urine Appearance Clear (CLEAR) 03/21/24 16:15 Urine pH 5.5 (5-7) 03/21/24 16:15 Ur Specific [place] 1.018 (1.005-1.030) 03/21/24 16:15 Urine Protein Negative (Negative) 03/21/24 16:15 Urine Glucose (UA) Negative (Normal) 03/21/24 16:15 Urine Ketones Negative (Negative) 03/21/24 16:15 Urine Blood Negative (Negative) 03/21/24 16:15 Urine Nitrate Negative (Negative) 03/21/24 16:15 Urine Bilirubin 2+ (Negative) H 03/21/24 16:15 Urine Urobilinogen 1.0 mg/dL (Negative) 03/21/24 16:15 Ur Leukocyte Esterase 2+ (Negative) A 03/21/24 16:15 Urine RBC 0-4 /hpf (0-2) H 03/21/24 16:15 Urine WBC 5-10 /hpf (0-5) H 03/21/24 16:15 Ur Squamous Epith Cells 0-4 /hpf (0-5) H 03/21/24 16:15 Calcium Oxalate Crystal 0-4 /hpf H 03/21/24 16:15 Amorphous Sediment Not Reportable 03/21/24 16:15 Urine Bacteria 1+ /hpf (NONE) H 03/21/24 16:15 Hyaline Casts 15-25 /lpf H 03/21/24 16:15 Urine Mucus 2+ /hpf 03/21/24 16:15 Urine Yeast Trace /hpf 03/21/24 16:15 Vitals Last Vital Signs Temp 98.7 F 03/23/24 11:32 Pulse 67 03/23/24 11:32 Resp 15 03/23/24 11:32 BP 135/91 03/23/24 11:32 Pulse Ox 98 03/23/24 11:32 O2 Del Method Room Air 03/23/24 11:32 O2 Flow Rate 1 03/21/24 23:36 Discharge Plan Discharge Patient Disposition: Home Condition: Stable Prescriptions: New folic acid 1 mg Tablet 1 mg PO Q12H 30 Days Qty: 60 0RF metoprolol tartrate 25 mg Tablet 25 mg PO BID@0900,2100 30 Days Qty: 60 0RF cefdinir 300 mg capsule 300 mg PO BID 5 Days Qty: 10 0RF aspirin 81 mg capsule 81 mg PO DAILY 30 Days Qty: 30 0RF atorvastatin 40 mg tablet 40 mg PO DAILY 30 Days Qty: 30 0RF Continued buprenorphine HCl 8 mg tablet, sublingual 8 mg sublingual DAILY cyclobenzaprine 10 mg tablet 10 mg PO TID gabapentin 300 mg capsule 300 mg PO BID leflunomide 20 mg tablet 20 mg PO DAILY Qty: 90 1RF sulfasalazine 500 mg tablet 1 g PO BID Qty: 120 5RF Rx Instructions: take with food prednisone 5 mg tablet 5 mg PO DAILY Qty: 90 1RF duloxetine 60 mg capsule,delayed release(DR/EC) 60 mg PO DAILY Qty: 30 2RF Rx Instructions: take 1 capsule BY MOUTH EVERY DAY Vraylar 1.5 mg capsule 1.5 mg PO DAILY Qty: 30 2RF Qulipta 60 mg tablet 60 mg PO DAILY Qty: 60 2RF (DME) Monoject Safety Syringes 3 mL 25 gauge x 5/8 syringe See Rx Instructions .Route Qty: 100 0RF Rx Instructions: As directed sucralfate 100 mg/mL suspension 10 ml PO TID Qty: 1000 1RF nystatin 100,000 unit/gram powder 1 applic topical BID Qty: 60 0RF topiramate 100 mg tablet 100 mg PO BID Qty: 60 5RF cholecalciferol (vitamin D3) 25 mcg (1,000 unit) capsule 25 mcg PO DAILY Qty: 90 0RF Ingrezza 80 mg capsule 80 mg PO DAILY Qty: 30 2RF ondansetron HCl 8 mg tablet 8 mg PO DAILY Rx Instructions: TAKE ONE TABLET BY MOUTH DAILY prednisone 20 mg tablet See Rx Instructions .ROUTE .COMPLEX PRN (Reason: joint pain) Rx Instructions: 20 mg orally ;TAKE 2 TABLETS BY MOUTH EVERY DAY FOR SEVEN DAYS NEEDED FOR joint pain flare levothyroxine 75 mcg tablet 75 mcg PO DAILY Rx Instructions: TAKE 1 TABLET BY MOUTH EVERY DAY pantoprazole 40 mg tablet,delayed release (DR/EC) 40 mg PO BID Rx Instructions: TAKE ONE TABLET BY MOUTH TWICE DAILY Discharge Orders: Discharge Order (Routine); Ordered 03/24/24 Ordered By: Bala Del Rosario Referrals: Sandra Zee MD [Primary Care Provider] - 3 weeks (Follow up at [facility] with Dr. Sandra Zee on TuesdayApril 13 @ 10:45 am) Eloy Maldonado MD, MBBS, MPH [Referring] - 2 weeks (sob) Discharge Diet: Cardiac Discharge Activity: Resume usual activity Patient Instructions: Nitroglycerin (By mouth), Aspirin (By mouth), Enoxaparin (By injection) (Lovenox), Chest Pain (GEN), Opioid Safety Activity Restrictions/Additional Instructions: - Please follow-up with your primary care provider -Patient was advised if she were to have any chest pain to go to emergency room -Please follow-up with pulmonary in [place] ? If you have any recurrent chest pain or shortness of breath please go to emergency room Discharge Attestations Time Spent in Discharge Care*: greater than 30 min Quality Metrics Clinical Quality Measures [ No reported AMI, CVA or VTE this stay] Coding Level of Care Code 73719 Total time (in minutes) for Discharge: 45 Diagnoses Other chest pain R07.89 Chest pain type: other chest pain Tachycardia R00.0 GREENE (dyspnea on exertion) R06.09 Depression with anxiety F41.8 Dietary folate deficiency anemia D52.0 Anemia type: folate deficiency Folate deficiency anemia type: dietary Seronegative rheumatoid arthritis of both hands M06.041; M06.042 Benign hypertension I10
--- NOTE | 2024-03-23 13:12 | PC.NURSE ---
Patient received from irrigation laborer s/p [facility] with right femoral access. Patient has angioseal device in place. No s/s of bleeding or hematoma formation. Instructed patient on site care and restrictions. Patient verbalized complete understanding. Family at bedside. Lunch provided.
[2024-03-23] MEDS: multivitamin therapeutic Tablet 1 TAB PO (13:49)
[2024-03-23] MEDS: isosorbide mononitrate ER 30 mg Tablet PO (16:01)
[2024-03-23] MEDS: atorvastatin 40 mg Tablet PO (21:05)
[2024-03-23] MEDS: metoprolol tartrate 25 mg Tablet 12.5 MG PO (21:05)
[2024-03-23] MEDS: trazodone 50 mg Tablet 25 MG PO (21:05)
[2024-03-24] VITALS (26 sets, daily range): BP systolic 93–126; BP diastolic 60–81; PULSE 66–97; RESP 12–25; TEMP 36.8–36.9; O2SAT 93–98; BMI 29.7
[2024-03-24 03:49] LABS: Basophils # 0.1 10^3/uL (0.0-0.1); Basophils % 1.6 %; Eosinophils # 0.2 10^3/uL (0.0-0.8); Eosinophils % 5.2 %; Hematocrit 33.1 % (36-47); Lymphocytes # 1.7 10^3/uL (0.8-4.8); Lymphocytes % 37.6 %; Mean Corpuscular HGB Conc 30.5 g/dL (30-55); Mean Corpuscular Hemoglobin 34.5 pg (27-33); Mean Platelet Volume 12.3 fL (7.4-10.4); Monocytes # 0.4 10^3/uL (0.2-0.9); Monocytes % 9.2 %; Neutrophils # 2.04 10^3/uL (1.8-7.7); Neutrophils % 45.9 %; Nucleated Red Blood Cells % 0 %; Platelet Count 221 10^3/cmm (157-399); Red Blood Count 2.93 10^6/uL (3.85-5.65); Red Cell Distribution Width 15.8 % (12.1-15.1); White Blood Count 4.44 10^3/uL (3.29-11.43)
[2024-03-24 04:04] LABS: Blood Urea Nitrogen 6 mg/dL (6-20); Calcium 8.1 mg/dL (8.5-10.5); Carbon Dioxide 21 mmol/L (22-29); Chloride 109 mmol/L (98-107); Creatinine Clr Calc Pharmacy 94.9478; Glomerular Filtration Rate 86.6 mL/min (90-130); Glucose 99 mg/dL (65-115); Osmolality Calculated 288 mOsm/kg (285-295); Sodium 140 mmol/L (136-145)
[2024-03-24 04:05] LABS: Anion Gap 13.4 (5-19); Potassium 3.4 mmol/L (3.5-5.1)
[2024-03-24] MEDS: folic acid 1 mg Tablet PO (05:24)
--- NOTE | 2024-03-24 08:52 | P.PN_ITS ---
Subjective 2 Subjective: Patient is doing well. No chest pain. Could not tolerate Imdur as had headaches. iFR of LAD was normal. Vitals/I&O/Wt Last Vital Signs Temp 98.5 F 03/24/24 08:00 Pulse 80 03/24/24 08:00 Resp 16 03/24/24 08:00 BP 126/81 03/24/24 08:00 Pulse Ox 98 03/24/24 08:00 O2 Del Method Room Air 03/24/24 08:00 O2 Flow Rate 1 03/21/24 23:36 03/23/24 03/24/24 03/24/24 22:59 06:59 14:59 Intake Total 462 / 822 887.5 / 1709.5 Output Total 650 / 1000 200 / 200 Balance 462 / 472 237.5 / 709.5 -200 / -200 Weight last 48 hrs Weight 178 lb 9 oz Weight 180 lb 14.4 oz Physical Exam 2 Narrative: GENERAL: Patient is alert, awake and oriented x3. [] NECK: No jugular vein distension. [] HEENT: No cyanosis. No icterus. No pallor. [] HEART: Regular S1 and S2. No murmur, rub or gallop. [] LUNGS: Clear to auscultate bilaterally. [] CENTRAL NERVOUS SYSTEM: Grossly nonfocal. [] EXTREMITIES: Lower extremities with 1+ edema bilaterally. Data 03/24/24 03:16 03/24/24 03:16 Micro: Microbiology 03/21/24 16:15 Urine Culture - Preliminary Urine,Clean Catch A&P Assessment and plan (1) Chest pain: Qualifiers: Chest pain type: other chest pain Qualified Code(s): R07.89 - Other chest pain (2) Tachycardia: (3) GREENE (dyspnea on exertion): (4) Depression with anxiety: (5) Anemia: Qualifiers: Anemia type: folate deficiency Folate deficiency anemia type: dietary Qualified Code(s): D52.0 - Dietary folate deficiency anemia (6) Seronegative rheumatoid arthritis of both hands: (7) Benign hypertension: Plan Patient is stable. No significant CAD. ifr for LAD is normal. Could not tolerate Imdur. Can uptitrate metoprolol to 25 mg twice daily. Patient is stable for discharge from cardiology standpoint. Please call with questions. Attestations 2 Medical Necessity Statement*: Care expected to cross 2 midnights. Coding Level of Care Code Acute Code for Chg Fwd Diagnoses Other chest pain R07.89 Chest pain type: other chest pain Tachycardia R00.0 GREENE (dyspnea on exertion) R06.09 Depression with anxiety F41.8 Dietary folate deficiency anemia D52.0 Anemia type: folate deficiency Folate deficiency anemia type: dietary Seronegative rheumatoid arthritis of both hands M06.041; M06.042 Benign hypertension I10
[2024-03-24] MEDS: sucralfate 1 gm/10 mL Oral Liq UDC PO (09:26)
[2024-03-24] MEDS: duloxetine 60 mg Capsule PO (09:27)
[2024-03-24] MEDS: cefdinir 300 MG CAPSULE PO (09:27)
[2024-03-24] MEDS: metoprolol tartrate 25 mg Tablet 12.5 MG PO (09:27)
[2024-03-24] MEDS: levothyroxine 75 mcg Tablet PO (09:28)
[2024-03-24] MEDS: gabapentin 300 mg Capsule PO (09:28)
[2024-03-24] MEDS: aspirin 81 mg EC Tablet PO (09:29)
[2024-03-24] MEDS: topiramate 100 mg Tablet PO (09:29)
[2024-03-24] MEDS: pantoprazole 40 mg SDV IVP (09:29)
[2024-03-24] MEDS: multivitamin therapeutic Tablet 1 TAB PO (09:29)
--- NOTE | 2024-03-24 10:31 | P.PN_ITS ---
Subjective 2 Subjective: This is progress note from 03/23/2024 -Patient was seen this morning, currentl y n.p.o., for her coronary angiography, no chest pain overnight, she did report that she did have a lack of sleep Vitals/I&O/Wt Last Vital Signs Temp 98.5 F 03/24/24 08:00 Pulse 80 03/24/24 08:00 Resp 16 03/24/24 08:00 BP 126/81 03/24/24 08:00 Pulse Ox 98 03/24/24 08:00 O2 Del Method Room Air 03/24/24 08:00 O2 Flow Rate 1 03/21/24 23:36 03/23/24 03/24/24 03/24/24 22:59 06:59 14:59 Intake Total 462 / 822 887.5 / 1709.5 120 / 120 Output Total 650 / 1000 200 / 200 Balance 462 / 472 237.5 / 709.5 -80 / -80 Weight last 48 hrs Weight 80.995 kg Weight 82.055 kg Physical Exam 2 Const: COMMON NORMALS: no acute distress and patient oriented x3 Resp: COMMON NORMALS: normal respiratory effort, No retractions, No use of accessory muscles and clear to auscultation bilaterally AUSCULTATION: clear to auscultation bilaterally Cardio: COMMON NORMALS: regular rate, regular rhythm, S1 normal heart sound present and S2 normal heart sound present RATE: regular rate RHYTHM: r egular rhythm HEART SOUNDS: S1 normal heart sound present and S2 normal heart sound present GI: COMMON NORMALS: Normal to inspection, nondistended, normoactive bowel sounds present and non-tender Extremity: COMMON NORMALS: no pedal edema Neuro: COMMON NORMALS: patient oriented x3 Psych: COMMON NORMALS: mental status grossly normal Data 03/24/24 03:16 03/24/24 03:16 Micro: Microbiology 03/21/24 16:15 Urine Culture - Final Urine,Clean Catch A&P Assessment and plan (1) Chest pain: Qualifiers: Chest pain type: other chest pain Qualified Code(s): R07.89 - Other chest pain Plan Exertional chest pain -Serial EKGs, serial troponins, telemetry monitoring -Aspirin, statin -Nitro as needed for chest pain -Telemetry monitoring -Cardiac echo CONCLUSIONS LV systolic function is normal with EF of 60-65% Grade 1 diastolic dysfunction Mild mitral regurgitation Trace aortic regurgitation Mild tricuspid regurgitation No comparison studies are available. -Cardiac stress test as below ? Will undergo cardiac angiography today IMPRESSIONS 1. Myocardial perfusion imaging revealing possible uniform mitral tracer uptake with no significant Perfusion normalities. Minimal to moderately decreased tracer uptake at rest, in the supine position, most likely is artifactual. 2. Normal LV ejection fraction of 83%. 3. LV wall motion analysis revealing no gross wall motion abnormalities. 4. Normal LV volume Low probability for coronary ischemia, based on the above findings No similar previous studies are available for comparison -Evidence of UTI -Evidence of folic acid deficiency start folic acid -Full code -Lovenox for DVT prophylaxis Attestations 2 Medical Necessity Statement*: Plan for today patient will undergo coronary angiography Diagnoses Other chest pain R07.89 Chest pain type: other chest pain
--- NOTE | 2024-03-24 11:57 | PC.NURSE ---
DISCHARGE INSTRUCTIONS GIVEN AND EXPLAINED.PT VERB UNDERSTANDING OF INSTRUCTIONS.DISCHARGED VIA W/C TO EXIT AT THIS TIME.PT'S MOTHER TO DRIVE PT HOME
--- NOTE | 2024-03-24 12:21 | PC.NURSE ---
discharge instructions given and explained.pt and son verb understanding of instructions.discharged via w/c to exit at this time
== END 2024-03-24 11:58 | disposition home or self-care (01) | DRG 287 ==
LOC: ER 16:52 → CSU 18:04
PROVIDERS: Internal Medicine; Internal Medicine Cardiovascular Disease; Admitting Provider Family Medicine; Emergency Provider Family Medicine; PCP Family Medicine; Visit Provider Family Medicine
PROC: 4A023N7 Measurement of Cardiac Sampling and Pressure, Left Heart, Percutaneous Approach (ICD-10-PCS; 2024-03-23 10:50)
DX: R07.89 Other chest pain (principal); N39.0 Urinary tract infection, site not specified; F41.1 Generalized anxiety disorder; E03.9 Hypothyroidism, unspecified; K21.9 Gastro-esophageal reflux disease without esophagitis; K58.9 Irritable bowel syndrome, unspecified; G43.909 Migraine, unspecified, not intractable, without status migrainosus; G89.29 Other chronic pain; M54.50 Low back pain, unspecified; D52.0 Dietary folate deficiency anemia; I10 Essential (primary) hypertension; R00.0 Tachycardia, unspecified; M06.041 Rheumatoid arthritis without rheumatoid factor, right hand; M06.042 Rheumatoid arthritis without rheumatoid factor, left hand; R06.09 Other forms of dyspnea; F32.9 Major depressive disorder, single episode, unspecified; M79.7 Fibromyalgia; G24.01 Drug induced subacute dyskinesia; Z98.84 Bariatric surgery status; Z79.899 Other long term (current) drug therapy; Z88.8 Allergy status to other drugs, medicaments and biological substances
CPT/HCPCS: 36415; 71045; 71275; 78452; 80048; 80053; 80061; 81001; 83036; 83880; 84443; 84484; 85025; 85347; 87086; 93005; 93017; 93306; 93458; 93571; 94664; 96372; 96374; 96375; 99152; 99153; 99213; 99285; A9500; C1760; C1769; C1887; C1894; G0269; J0280; J0696; J1644; J1650; J2250; J2470; J2785; J3010; J3490; J7030; Q0163; Q9967

== ENCOUNTER → 2024-03-27 14:14 | Outpatient (BNVA) | payer MEDICARE, MEDICAID, SELFPAY | PROVIDERS: PCP Family Medicine | DX: D52.0 Dietary folate deficiency anemia (principal) | CPT/HCPCS: 82728; 83550; 85025 ==

== ENCOUNTER 2024-03-28 12:40 | Outpatient (CLI) | payer MEDICARE, MEDICAID, SELFPAY ==
--- NOTE | 2024-03-28 13:00 | MM_ITS ---
WS: [id number] BILATERAL 3D TOMOSYNTHESIS DIGITAL SCREENING MAMMOGRAPHY WITH CAD CLINICAL INFORMATION: screening for for breast cancer HISTORY: Screening mammogram. No current complaints. COMPARISON: 2020 TECHNIQUE: Bilateral CC and MLO views. FINDINGS: Scattered fibroglandular densities bilaterally. No suspicious focal mass, asymmetry, calcifications, or architectural distortion. No evidence of malignancy. Punctate and lucent centered calcifications R IGHT breast. Biopsy clip RIGHT breast. MM/MM scr BI tomosynthesis [id number] IMPRESSION: DENSITY: There are scattered areas of fibroglandular density. BI-RADS: 2 - Benign. FOLLOW UP: 1 Year Follow-up Recommend return to annual screening mammography.
== END 2024-03-28 12:41 | disposition home or self-care (01) ==
LOC: RAD 12:40
PROVIDERS: PCP Family Medicine; Visit Provider Family Medicine
DX: Z12.31 Encounter for screening mammogram for malignant neoplasm of breast (principal); R92.323 Mammographic fibroglandular density, bilateral breasts; R92.1 Mammographic calcification found on diagnostic imaging of breast
CPT/HCPCS: 77063; 77067

== ENCOUNTER 2024-04-16 06:26 | Day surgery (SDC) | payer MEDICARE, MEDICAID, SELFPAY ==
[2024-04-16 06:45] VITALS: BP 115/80; PULSE 92; RESP 18; TEMP 36.6; O2SAT 96; BMI 29.6
--- NOTE | 2024-04-16 06:59 | ANES.PREANE2 ---
Pre-Anesthetic Assessment Height/Weight: Height 1.65 m Weight 80.739 kg Temp Pulse Resp BP Pulse Ox O2 Del Method 97.8 F 92 18 115/80 96 Room Air 04/16/24 06:45 04/16/24 06:45 04/16/24 06:45 04/16/24 06:45 04/16/24 06:45 04/16/24 06:45 Preop Diagnosis: Chest Pain/Heartburn Operation Date: 04/16/24 07:30 Proposed Procedures p EGD - 57176, D64.9(Not Applicable) - Jan Herman MD Familial anesthetic complications: nausea Was Beta Ana M taken within 24 hours: Yes Was Clonidine taken within 24 hours: N/A Last intake: Intake Last Liquid Date 04/15/24 Last Liquid Time 23:59 Last Solid Date 04/15/24 Last Solid Time 21:00 Social No alcohol and No tobacco Exam alert, oriented x 3, clear to auscultation bilaterally and regular rate & rhythm Airway Submandibular: within normal limits Cervical ROM: within normal limits Mallampati: Class II Dentition: false History/ROS No significant history except as noted Pulmonary None reported CV/HEM Stable Angina, Coronary Artery Disease and Hypertension None reported Hepatic None reported GI Gastroesophageal Reflux Disease Metabolic None reported Musc/skel None reported Neuropsych None reported Anesthetic Plan ASA status: 3 Anesthesia: MAC Risk of > 500 ml blood loss (7ml/kg in children): No Medications/Allergies Home Medications Medication Instructions Recorded Confirmed Last Taken Type buprenorphine HCl 8 mg sublingual 8 mg sublingual DAILY 09/24/22 04/12/24 04/15/24 History tablet topiramate 100 mg tablet 100 mg PO BID #60 tabs 10/12/22 04/12/24 04/15/24 Rx cholecalciferol (vitamin D3) 25 25 mcg PO DAILY #90 caps 12/02/22 04/12/24 04/15/24 Rx mcg (1,000 unit) capsule cyclobenzaprine 10 mg tablet 10 mg PO TID 05/05/23 04/12/24 04/15/24 History atogepant 60 mg tablet (Qulipta) 60 mg PO DAILY #60 tabs 09/21/23 04/12/24 04/15/24 Rx prednisone 20 mg tablet See Rx Instructions .Route 11/04/23 04/12/24 03/04/24 History .COMPLEX PRN joint pain gabapentin 300 mg capsule 300 mg PO BID 01/23/24 04/12/24 04/15/24 History leflunomide 20 mg tablet 20 mg PO DAILY #90 tabs 01/23/24 04/12/24 04/15/24 Rx prednisone 5 mg tablet 5 mg PO DAILY #90 tabs 01/23/24 04/12/24 04/15/24 Rx sulfasalazine 500 mg tablet 1 g (2 x 500 mg) PO BID #120 tabs 01/23/24 04/12/24 04/15/24 Rx valbenazine 80 mg capsule 80 mg PO DAILY #30 caps 02/01/24 04/12/24 04/15/24 Rx (Ingrezza) cariprazine 1.5 mg capsule 1.5 mg PO DAILY #30 caps 02/06/24 04/12/24 04/15/24 Rx (Vraylar) duloxetine 60 mg capsule,delayed 60 mg PO DAILY #30 caps 02/06/24 04/12/24 04/15/24 Rx release syringe with needle, safety 3 mL #100 ea 02/21/24 04/12/24 03/04/24 Rx 25 gauge x 5/8 (Monoject Safety Syringes) levothyroxine 75 mcg tablet 75 mcg PO DAILY 03/01/24 04/12/24 04/15/24 History pantoprazole 40 mg tablet,delayed 40 mg PO BID 03/01/24 04/12/24 04/15/24 History release sucralfate 100 mg/mL oral 10 ml PO TID #1,000 mL 03/12/24 04/12/24 04/05/24 Rx suspension folic acid 1 mg tablet 1 mg PO Q12H 30 days #60 tabs 03/23/24 04/12/24 04/15/24 Rx metoprolol tartrate 25 mg tablet 25 mg PO BID@0900,2100 30 days #60 03/23/24 04/12/24 04/15/24 21:00 Rx tabs atorvastatin 40 mg tablet 40 mg PO DAILY 30 days #30 tabs 03/24/24 04/12/24 04/15/24 Rx albuterol sulfate 90 mcg/actuation 2 inh inhalation Q6H PRN shortness 03/27/24 04/12/24 04/11/24 Rx breath activated powder inhaler of breath or wheezing #1 ea nystatin 100,000 unit/gram topical 1 applic topical BID #30 grams 04/05/24 04/12/24 04/08/24 Rx cream fluconazole 150 mg tablet 150 mg PO DAILY PRN yeast infect 04/12/24 04/16/24 04/14/24 Rx #7 tabs nitroglycerin 0.4 mg sublingual 0.4 mg sublingual Q5M PRN chest 04/12/24 04/16/24 Unknown Rx tablet (Nitrostat) pain #100 tabs ondansetron HCl 8 mg tablet 8 mg PO DAILY PRN nausea and 04/12/24 04/12/24 04/14/24 Rx vomiting #30 tabs Allergies Allergy/AdvReac Type Severity Reaction Status Date / Time azithromycin Allergy Mild ALGY-Rash Verified 04/12/24 12:54 mirtazapine [From Remeron] Allergy Mild ALGY-Rash Verified 04/12/24 12:54 tolmetin Allergy ALGY-Rash Verified 04/12/24 12:54 PFSH Anesthesia Medical History (Updated 04/12/24 @ 16:42 by Sandra Zee MD) Hyperlipidemia LDL goal <70 CAD (coronary artery disease), [place] coronary artery 50% LAD on cardac cath 03.20 Ascending aorta dilatation 3.9cm on cardiac cath 03.20 Benign hypertension Shortness of breath on exertion Polypharmacy Tachycardia IBS (irritable bowel syndrome) Fibromyalgia Acquired hypothyroidism Headache, chronic migraine without aura, intractable Chronic low back pain GERD with esophagitis Tardive dyskinesia Chronic pancreatitis currently resolved Seronegative rheumatoid arthritis of both hands MDD (major depressive disorder) Inflammatory arthritis Depression with anxiety Joint pain High risk medication use Psychiatric care Surgical History (Updated 04/12/24 @ 16:38 by Sandra Zee MD) Hx of cardiac cath 03/20 OZH 50% LAD Bariatric surgery status History of esophagogastroduodenoscopy (EGD) Hx of colonoscopy with polypectomy History of carpal tunnel surgery of right wrist 2023 Hx of breast biopsy right' X 2; both benign History of Titi-en-Y gastric bypass History of hysterectomy Hyst due to prolapse, no cancer; ovaries remaining History of cholecystectomy History of shoulder surgery bilateral; for frozen shoulders History of tonsillectomy and adenoidectomy Family History Mother Cancer Breast Cancer Migraines Hypertension Diabetes mellitus, type 2 Grandmother Cancer Colon Other Chronic kidney disease (CKD) Diabetes Hyperlipidemia Lung disease Rheumatoid arthritis Stroke Denies family history of Lupus CAD (coronary artery disease) Psoriatic arthritis Social History Smoking and tobacco/nicotine status: never used tobacco/nicotine Second hand smoke exposure: No Alcohol intake: never Substance/Drug Use: current Substance/Drug use frequency: few times a week Other substance/drug use details: Gummies Household members: none Marital status: Legally Number of children: 3 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
[2024-04-16] MEDS: sodium chloride 0.9% 1,000 ML 30 ML IV (07:05)
--- NOTE | 2024-04-16 07:13 | P.HP_ITS ---
Same Day Surgery H&P Indication for Procedure/HPI DATE OF PROCEDURE: April 16, 2024 CHIEF COMPLAINT/INDICATIONFOR SURGICAL PROCEDURE: Heartburn PREOP DIAGNOSIS: Chest Pain/Heartburn PLANNED PROCEDURE: Operation Date: 04/16/24 07:30 Proposed Procedures p EGD - 74489, D64.9(Not Applicable) - Jan Herman MD Medications/Allergies* Home Medications Medication Instructions Recorded Confirmed Type buprenorphine HCl 8 mg sublingual 8 mg sublingual DAILY 09/24/22 04/12/24 [place] tablet cyclobenzaprine 10 mg tablet 10 mg PO TID 05/05/23 04/12/24 History prednisone 20 mg tablet See Rx Instructions .Route 11/04/23 04/12/24 History .COMPLEX PRN joint pain gabapentin 300 mg capsule 300 mg PO BID 01/23/24 04/12/24 History levothyroxine 75 mcg tablet 75 mcg PO DAILY 03/01/24 04/12/24 History pantoprazole 40 mg tablet,delayed 40 mg PO BID 03/01/24 04/12/24 History release Allergies/Adverse Reactions Allergy/AdvReac Type Severity Reaction Status Date / Time azithromycin Allergy Mild ALGY-Rash Verified 04/12/24 12:54 mirtazapine [From Remeron] Allergy Mild ALGY-Rash Verified 04/12/24 12:54 tolmetin Allergy ALGY-Rash Verified 04/12/24 12:54 Current Medications: Generic Name Dose Route Start Last Admin Trade Name Freq PRN Reason Stop Dose Admin Sodium Chloride 1,000 mls @ 30 mls/hr 04/16/24 06:45 04/16/24 07:05 Sodium Chloride 0.9% IV 04/17/24 06:44 30 mls/hr .Q24H KATH Administration Pertinent History/Comorbid Conditions* Medical History (Updated 04/12/24 @ 16:42 by Sandra Zee MD) Hyperlipidemia LDL goal <70 CAD (coronary artery disease), [place] coronary artery 50% LAD on cardac cath . Ascending aorta dilatation 3.9cm on cardiac cath . Benign hypertension Shortness of breath on exertion Polypharmacy Tachycardia IBS (irritable bowel syndrome) Fibromyalgia Acquired hypothyroidism Headache, chronic migraine without aura, intractable Chronic low back pain GERD with esophagitis Tardive dyskinesia Chronic pancreatitis currently resolved Seronegative rheumatoid arthritis of both hands MDD (major depressive disorder) Inflammatory arthritis Depression with anxiety Joint pain High risk medication use Psychiatric care Surgical History (Updated 04/12/24 @ 16:38 by Sandra Zee MD) Hx of cardiac cath 03/20 OZH 50% LAD Bariatric surgery status History of esophagogastroduodenoscopy (EGD) Hx of colonoscopy with polypectomy History of carpal tunnel surgery of right wrist 2023 Hx of breast biopsy right' X 2; both benign History of Titi-en-Y gastric bypass History of hysterectomy Hyst due to prolapse, no cancer; ovaries remaining History of cholecystectomy History of shoulder surgery bilateral; for frozen shoulders History of tonsillectomy and adenoidectomy Family History (Updated 03/12/24 @ 13:26 by Sandra Zee MD) Rheumatoid arthritis Diabetes Diabetes mellitus, type 2 Mother Migraines Mother Hyperlipidemia Chronic kidney disease (CKD) Lung disease Cancer Mother Breast Cancer Grandmother Colon Hypertension Mother Stroke Denies family history of Lupus CAD (coronary artery disease) Psoriatic arthritis Social History Smoking and tobacco/nicotine status: never used tobacco/nicotine Second hand smoke exposure: No Alcohol intake: never Substance/Drug Use: current Substance/Drug use frequency: few times a week Other substance/drug use details: Gummies Household members: none Marital status: Legally Number of children: 3 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
[2024-04-16 08:02] VITALS: BP 92/64; PULSE 77; RESP 16; TEMP 36.1; O2SAT 92
[2024-04-16 08:10] VITALS: BP 98/68; PULSE 80; RESP 16; O2SAT 92
[2024-04-16 08:17] VITALS: BP 103/74; PULSE 76; RESP 16; O2SAT 93
--- NOTE | 2024-04-16 08:30 | ANE.PACU2 ---
Inpatient post-anesthesia follow up: Airway intact: Yes Vital signs: Temperature 97 F Pulse Rate 76 Respiratory Rate 16 Blood Pressure 103/74 Pulse Oximetry 93 Oxygen Delivery Me thod Room Air Oxygen Flow Rate Fraction of Inspir ed Oxygen Hydration adequate: Yes Nausea and vomiting: No Pain level: 1 Mental status: Baseline
== END 2024-04-16 08:30 | disposition home or self-care (01) ==
PROVIDERS: PCP Family Medicine; Visit Provider Student in an Organized Health Care Education/Training Program
PROC: 0DJ08ZZ Inspection of Upper Intestinal Tract, Via Natural or Artificial Opening Endoscopic (ICD-10-PCS; CPT 43235; principal; 2024-04-16 07:30)
DX: D64.9 Anemia, unspecified (principal); K29.70 Gastritis, unspecified, without bleeding; E78.5 Hyperlipidemia, unspecified; I25.10 Atherosclerotic heart disease of native coronary artery without angina pectoris; M79.7 Fibromyalgia; E03.9 Hypothyroidism, unspecified; I10 Essential (primary) hypertension; K21.9 Gastro-esophageal reflux disease without esophagitis; Z79.52 Long term (current) use of systemic steroids; Z98.84 Bariatric surgery status
CPT/HCPCS: 43239; 88305; J2704; J7030

== ENCOUNTER → 2024-04-30 08:34 | Outpatient (BNVA) | payer MEDICARE, MEDICAID, SELFPAY | PROVIDERS: PCP Family Medicine; Visit Provider Student in an Organized Health Care Education/Training Program | DX: Z09 Encounter for follow-up examination after completed treatment for conditions other than malignant neoplasm (principal) | CPT/HCPCS: 99213 ==

== ENCOUNTER → 2024-05-10 10:37 | Outpatient (BNVA) | payer MEDICARE, MEDICAID, SELFPAY | PROVIDERS: PCP Family Medicine; Visit Provider Internal Medicine Cardiovascular Disease | DX: R07.9 Chest pain, unspecified (principal); I25.119 Atherosclerotic heart disease of native coronary artery with unspecified angina pectoris; I10 Essential (primary) hypertension; E78.5 Hyperlipidemia, unspecified | CPT/HCPCS: 93005; 99214 ==

== ENCOUNTER 2024-05-15 13:07 | Emergency (ER) | payer MEDICARE, MEDICAID, SELFPAY ==
--- NOTE | 2024-05-15 13:12 | ECG_ITS ---
[facility] Date: 2024-05[facility]15 Pat Name: Harper Dailey Department: Room: Gender: Female Wholesale Buyer: : 1965 Requested By: Eris Segundo Order Number: [id number] Reading MD: GIRMA REEVES Measurements Intervals [place] Rate: 82 P: 61 MO: 154 QRS: 39 QRSD: 82 T: 22 QT: 364 QTc: 428 Interpretive Statements SINUS RHYTHM MODERATE T-WAVE ABNORMALITY, CONSIDER INFERIOR ISCHEMIA [-0.1+ mV T-WAVE IN II/aVF] Compared to ECG 05/10/2024 10:39:57 Possible ischemia now present T-wave abnormality still present Electronically Signed On 05-16-2024 17:28:52 INSPECTOR AND TESTER by GIRMA REEVES [email or web address]
[2024-05-15 13:15] VITALS: BP 109/78; PULSE 82; RESP 18; TEMP 36.5; O2SAT 98; BMI 29.6
--- NOTE | 2024-05-15 14:00 | XR_ITS ---
WS: [id number] Exam: XR chest 1V portable [id number] Date/Time of Exam: 05/15/2024 2:00 PM Reason For Exam: chest pain Comparison 03/21/2024. Lungs are clear and fully expanded. Normal cardiomediastinal silhouette. No pleural effusion. Bony st ructures are unremarkable. Spondylosis of the T-spine. A battery pack is seen in the midline. XR/XR chest 1V portable [id number] IMPRESSION: 1. No acute cardiopulmonary finding.
[2024-05-15 14:33] LABS: Basophils # 0.1 10^3/uL (0.0-0.1); Basophils % 1.7 %; Eosinophils # 0.1 10^3/uL (0.0-0.8); Eosinophils % 2.2 %; Hematocrit 34.5 % (36-47); Lymphocytes # 1.1 10^3/uL (0.8-4.8); Lymphocytes % 26.4 %; Mean Corpuscular HGB Conc 30.4 g/dL (30-55); Mean Corpuscular Hemoglobin 31.6 pg (27-33); Mean Corpuscular Volume 103.9 fl (85-98); Mean Platelet Volume 11.5 fL (7.4-10.4); Monocytes # 0.3 10^3/uL (0.2-0.9); Monocytes % 6.2 %; Neutrophils # 2.56 10^3/uL (1.8-7.7); Neutrophils % 63.3 %; Nucleated Red Blood Cells % 0 %; Platelet Count 159 10^3/cmm (157-399); Red Blood Count 3.32 10^6/uL (3.85-5.65); Red Cell Distribution Width 14.9 % (12.1-15.1); White Blood Count 4.05 10^3/uL (3.29-11.43)
[2024-05-15 14:59] LABS: Troponin(5th) Baseline 18 ng/L (0-10)
[2024-05-15 15:10] LABS: Alanine Aminotransferase 6 U/L (0-33); Albumin Level 3.8 g/dL (3.5-5.2); Alkaline Phosphatase 78 U/L (35-105); Anion Gap 13.8 (5-19); Aspartate Amino Transferase 15 U/L (0-32); Blood Urea Nitrogen 8 mg/dL (6-20); Carbon Dioxide 22 mmol/L (22-29); Chloride 106 mmol/L (98-107); Creatinine Clr Calc Pharmacy 82.4268; Globulin 1.8 g/dL (1.3-4.6); Glomerular Filtration Rate 74.2 mL/min (90-130); Glucose 114 mg/dL (65-115); NT Pro B Type Natriuretic Pept 212 pg/mL (0-125); Osmolality Calculated 285 mOsm/kg (285-295); Potassium 3.8 mmol/L (3.5-5.1); Sodium 138 mmol/L (136-145); Total Bilirubin 0.6 mg/dL (0.15-1.2); Total Protein 5.6 g/dL (6.6-8.7)
--- NOTE | 2024-05-15 16:00 | ECG_ITS ---
[facility] Test Date: 2024-05-15 Pat Name: Harper Dailey Department: Room: Gender: Female Manager Payer: : 1965 Requested By: Chiara Mccloud Order Number: [id number] Reading MD: GIRMA REEVES Measurements Intervals [place] Rate: 81 P: 58 [place]: 153 QRS: 33 QRSD: 86 T: 21 QT: 365 QTc: 425 Interpretive Statements SINUS RHYTHM NONSPECIFIC ST & T-WAVE ABNORMALITY Compared to ECG 05/15/2024 13:12:48 Possible ischemia no longer present T-wave abnormality still present Electronically Signed On 05-16-2024 18:10:28 HOPS FARMWORKER by GIRMA REEVES [email or web address]
[2024-05-15 17:32] LABS: Troponin 5 2HR 17.59 ng/L (0-10); Troponin 5 2HR Delta -0.41 ABS# (0-10)
--- NOTE | 2024-05-15 17:33 | CTR_ITS ---
PROCEDURE INFORMATION: Exam: CT Chest With Contrast; Diagnostic Exam date and time: 05/15/2024 6:32 PM Age: 58 years old Clinical indication: Pain; Chest pressure; Additional info: Severe back pain/cp/sob TECHNIQUE: Imaging protocol: Diagnostic computed tomography of the chest with contrast. Radiation optimization: All CT scans at this facility use at least one of these dose optimization techniques: automated exposure control; mA and/or kV adjustment per patient size (includes targeted exams where dose is matched to clinical indication); or iterative reconstruction. Contrast material: OMNIPAQUE 350; Contrast volume: 100 ml; Contrast route: INTRAVENOUS (IV); COMPARISON: CT angio chest PE protcl [id number] 03/22/2024 7:11 PM RADIATION DOSE METRICS: Total DLP (mGy-cm): 482.19 FINDINGS: Lungs: Unremarkable. No consolidation. No masses. Pleural spaces: Unremarkable. No pneumothorax. No pleural effusion. Heart: Unremarkable. No cardiomegaly. No pericardial effusion. Coronary arteries: Coronary artery calcification. Lymph nodes: Unremarkable. No enlarged lymph nodes. Vasculature: Unremarkable. No aortic aneurysm. Gallbladder and biliary ducts: Gallbladder is surgically absent. Dilated common bile duct in the setting of a post cholecystectomy state. Intrahepatic biliary dilatation. Kidneys: Left-sided nonobstructing renal calculi. Stomach: Postoperative changes of the stomach. Bones/joints: Unremarkable. No acute fracture. Soft tissues: Unremarkable. CT/CT chest w con* [id number] IMPRESSION: 1. No pulmonary embolism. 2. The lungs are relatively clear. 3. Incidental/chronic findings of the upper abdomen as above.
[2024-05-15 17:49] VITALS: RESP 18; O2SAT 99
[2024-05-15] MEDS: morphine 4 mg/mL SDV 1 mL IVP (17:49)
[2024-05-15 17:50] VITALS: BP 120/95; PULSE 79; RESP 20; O2SAT 95
--- NOTE | 2024-05-15 18:00 | W.ED.CHESTPA ---
HPI - Chest Pain General: Chief Complaint: Chest Pain Stated Complaint: RICA CP Time Seen by Provider: 05/15/24 17:17 Source: patient Mode of arrival: ambulatory Limitations: no limitations History of Present Illness: Patient is a 58-year-old female with past medical history of CAD, HLD, GERD, anxiety, and hypertension who is presenting to the emergency department with complaints of shortness of breath beginning this morning when she woke up. Patient had a coronary arteriogram in February of this year, after patient having complaints of intermittent chest pains and palpitations. At that time she was found to have a 50% stenosis of the proximal LAD, 20% narrowing of the mid LAD, and aorta enlarged at 3.9 cm. Recommendation at that time was aggressive medical therapy and close cardiology follow-up. She states she takes baby aspirin, is not anticoagulated. This morning, states that the shortness of breath was noticed upon awaking, and patient's mom that the patient use some of her home O2 and patient states this did make her feel better. Recorded home SpO2 recorded to be 91%, however patient has been off of oxygen and in the waiting room for the past 4 hours with no complaints. At this time she is noted to be 99% on room air, states that her shortness of breath is only present with lying flat. She denies any personal history of [place] or congestive heart failure. Primary complaint at this time is severe mid back pain, and some chest pressure. She also is currently wearing a Holter monitor that was placed last with Dr. Winslow office, denies any recent episodes of palpitations. Her blood pressure and pulse are stable at this time, she is afebrile and breathing comfortably on room air. MD complaint: chest pain Pertinent past history: coronary artery disease Onset (ago): hour(s) Timing of current episode: stable and still present Prior episodes: Yes Onset: during rest Pain location: substernal Pain radiation: back Associated symptoms: Reports dyspnea; Deny abdominal pain, fever(s), nausea, palpitations or vomiting Treatment prior to arrival: oxygen Related Data Home Medications Medication Instructions Recorded Confirmed buprenorphine HCl 8 mg sublingual 8 mg sublingual DAILY 09/24/22 05/14/24 tablet prednisone 20 mg tablet See Rx Instructions .Route 11/04/23 05/14/24 .COMPLEX PRN joint pain gabapentin 300 mg capsule 300 mg PO BID 01/23/24 05/14/24 levothyroxine 75 mcg tablet 75 mcg PO DAILY 03/01/24 05/14/24 pantoprazole 40 mg tablet,delayed 40 mg PO BID 03/01/24 05/14/24 release cyclobenzaprine 10 mg tablet 10 mg PO BID 05/14/24 05/14/24 Previous Rx's Medication Instructions Recorded topiramate 100 mg tablet 100 mg PO BID #60 tabs 10/12/22 cholecalciferol (vitamin D3) 25 25 mcg PO DAILY #90 caps 12/02/22 mcg (1,000 unit) capsule atogepant 60 mg tablet (Qulipta) 60 mg PO DAILY #60 tabs 09/21/23 leflunomide 20 mg tablet 20 mg PO DAILY #90 tabs 01/23/24 prednisone 5 mg tablet 5 mg PO DAILY #90 tabs 01/23/24 sulfasalazine 500 mg tablet 1 g (2 x 500 mg) PO BID #120 tabs 01/23/24 syringe with needle, safety 3 mL #100 ea 02/21/24 25 gauge x 5/8 (Monoject Safety Syringes) sucralfate 100 mg/mL oral 10 ml PO TID #1,000 mL 03/12/24 suspension albuterol sulfate 90 mcg/actuation 2 inh inhalation Q6H PRN shortness 03/27/24 breath activated powder inhaler of breath or wheezing #1 ea nystatin 100,000 unit/gram topical 1 applic topical BID #30 grams 04/05/24 cream fluconazole 150 mg tablet 150 mg PO DAILY PRN yeast infect 04/12/24 #7 tabs nitroglycerin 0.4 mg sublingual 0.4 mg sublingual Q5M PRN chest 04/12/24 tablet (Nitrostat) pain #100 tabs ondansetron HCl 8 mg tablet 8 mg PO DAILY PRN nausea and 04/12/24 vomiting #30 tabs valbenazine 80 mg capsule 80 mg PO DAILY #30 caps 04/17/24 (Ingrezza) atorvastatin 40 mg tablet 40 mg PO DAILY 30 days #30 tabs 04/19/24 cariprazine 3 mg capsule (Vraylar) 3 mg PO DAILY #30 caps 05/07/24 duloxetine 60 mg capsule,delayed 60 mg PO DAILY #30 caps 05/07/24 release metoprolol tartrate 25 mg tablet 12.5 mg (1/2 x 25 mg) PO BID 30 05/10/24 days #30 tabs buspirone 7.5 mg tablet 7.5 mg PO BID #60 tabs 05/11/24 Allergies Allergy/AdvReac Type Severity Reaction Status Date / Time azithromycin Allergy Mild ALGY-Rash Verified 05/14/24 10:55 mirtazapine [From Remeron] Allergy Mild ALGY-Rash Verified 05/14/24 10:55 tolmetin Allergy ALGY-Rash Verified 05/14/24 10:55 Review of Systems General: Reports: 10 or more systems reviewed and unremarkable except in HPI and below Const: Denies: fever(s), chills or fatigue Eyes: Denies: change in vision ENMT: Denies: throat pain, ear or mastoid pain or nasal discharge Card: Reports: chest pain; Denies: palpitations, swelling of feet/ankles or lightheadedness Resp: Reports: dyspnea; Denies: productive cough or wheezing GI: Denies: abdominal pain, nausea, vomiting, diarrhea or constipation : Denies: flank pain, difficulty voiding, dysuria or urinary frequency Musc: Reports: back pain; Denies: neck pain or joint pain Skin/Breast: Denies: rash Neuro: Denies: headache(s), numbness in extremities or weakness in extremities PFSH ED PFSH: Medical History Chronic superficial gastritis without bleeding on EGD Hyperlipidemia LDL goal <70 CAD (coronary artery disease), [place] coronary artery 50% LAD on cardac cath 03.20 Ascending aorta dilatation 3.9cm on cardiac cath 03.20 Benign hypertension Shortness of breath on exertion Polypharmacy Tachycardia IBS (irritable bowel syndrome) Fibromyalgia Acquired hypothyroidism Headache, chronic migraine without aura, intractable Chronic low back pain GERD with esophagitis Tardive dyskinesia Chronic pancreatitis currently resolved Seronegative rheumatoid arthritis of both hands MDD (major depressive disorder) Inflammatory arthritis Depression with anxiety Joint pain High risk medication use Psychiatric care Surgical History Hx of cardiac cath 03/20 OZH 50% LAD Bariatric surgery status History of esophagogastroduodenoscopy (EGD) Hx of colonoscopy with polypectomy History of carpal tunnel surgery of right wrist 2023 Hx of breast biopsy right' X 2; both benign History of Titi-en-Y gastric bypass History of hysterectomy Hyst due to prolapse, no cancer; ovaries remaining History of cholecystectomy History of shoulder surgery bilateral; for frozen shoulders History of tonsillectomy and adenoidectomy Family History Mother Cancer Breast Cancer Migraines Hypertension Diabetes mellitus, type 2 Grandmother Cancer Colon Other Chronic kidney disease (CKD) Diabetes Hyperlipidemia Lung disease Rheumatoid arthritis Stroke Denies family history of Lupus CAD (coronary artery disease) Psoriatic arthritis Social History Smoking and tobacco/nicotine status: never used tobacco/nicotine Second hand smoke exposure: No Alcohol intake: never Substance/Drug Use: current Substance/Drug use frequency: few times a week Other substance/drug use details: Gummies Household members: none Marital status: Legally Number of children: 3 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 Reproductive History: Spontaneous abortions: No Physical Exam Const: COMMON NORMALS: no acute distress, patient oriented x3 and no limitations GENERAL APPEARANCE: cooperative, comfortable and well developed ORIENTATION/CONSCIOUSNESS: Yes awake, Yes oriented to person, Yes oriented to place and Yes oriented to time HENMT: COMMON NORMALS: normocephalic, atraumatic and hearing grossly normal bilaterally HEAD & SCALP: normocephalic and atraumatic Eye: COMMON NORMALS: Equal, round and reactive pupils present, EOMs intact bilaterally and conjunctivae normal CONJUNCTIVA: Yes conjunctivae normal PUPIL: Yes Equal, round and reactive pupils present Neck/C-Spine: COMMON NORMALS: full ROM, supple and no JVD Chest: OTHER: Holter monitor present Resp: COMMON NORMALS: normal respiratory effort, No retractions, No use of accessory muscles and clear to auscultation bilaterally AUSCULTATION: clear to auscultation bilaterally Cardio: COMMON NORMALS: no JVD, regular rate, regular rhythm, No clicks present (Cardio), No murmurs present (Cardio) and No rub (Cardio) RATE: regular rate RHYTHM: regular rhythm GI: COMMON NORMALS: Normal to inspection, nondistended, normoactive bowel sounds present, Soft to palpation and non-tender AUSCULTATION: Yes normoactive bowel sounds PALPATION: Yes Soft to palpation RECTAL EXAM: deferred Back/Pelvis: COMMON NORMALS: thoracic and lumbar spine normal to inspection, no thoracic nor lumbar tenderness and thoraco-lumbar ROM normal Extremity: COMMON NORMALS: normal to inspection, full ROM and capillary refill normal Neuro: COMMON NORMALS: patient oriented x3, CN's II-XII intact bilaterally, moves all extremities, no focal motor deficits and no sensory deficits noted SENSORIUM/ORIENTATION: Yes oriented to person, Yes oriented to place and Yes oriented to time Psych: COMMON NORMALS: mental status grossly normal and Normal thought process present THOUGHT PROCESS: Normal thought process present Skin: COMMON NORMALS: no rashes or lesions noted GENERAL SKIN EXAM: no rashes or lesions noted Course Vital Signs: Vital signs: Vital Signs Temperature 97.7 F 05/15/24 13:15 Pulse Rate 98 05/15/24 18:15 Respiratory Rate 20 H 05/15/24 17:50 Blood Pressure 119/86 05/15/24 18:15 Pulse Oximetry 96 05/15/24 18:15 Oxygen Delivery Me thod Room Air 05/15/24 13:15 MDM - Chest Pain Medical Decision Making Patient presented with acute onset chest pain shortness of breath this morning. Though she noted needing oxygen to breathe comfortably throughout the day, has been in the waiting room for 4 hours prior to being seen and throughout her ED course has been breathing comfortably and 96 to 100% on room air. Her troponin and 2-hour troponin nondiagnostic. EKG reviewed with physician showing normal sinus rhythm with no acute STEMI or other arrhythmias. She currently does have a Holter monitor for history of palpitations, and in February had a cardiac cath with follow-up plan for intensive medical therapy. Currently not anticoagulated, only taking baby aspirin. Chest x-ray was normal and the rest of her labs were normal. She did report to me history of enlarged aorta, and with the reports of severe back pain wanted to rule out a dissection. Her CT was negative for this. Her pain at this time favors more of a musculoskeletal pain, does not appear to be cardiac in nature however did encourage her to keep outpatient follow-ups with cardiology and continue wearing Holter monitor. Will have her return with any worsening of her pain or breathing issues, and she endorses understanding and all other questions and concerns addressed at this time. Will give 1 dose of steroid here in case that this is related to a costochondritis. Lab Data 05/15/24 14:17 05/15/24 14:17 Radiology Impressions Chest X-Ray 05/15/24 14:00 IMPRESSION: 1. No acute cardiopulmonary finding. Chest CT 05/15/24 17:33 IMPRESSION: 1. No pulmonary embolism. 2. The lungs are relatively clear. 3. Incidental/chronic findings of the upper abdomen as above. Laboratory Results WBC 4.05 10^3/uL (3.29-11.43) 05/15/24 14:17 RBC 3.32 10^6/uL (3.85-5.65) L 05/15/24 14:17 Hgb 10.50 g/dL (11.27-16.99) L 05/15/24 14:17 Hct 34.5 % (36-47) L 05/15/24 14:17 MCV 103.9 fl (85-98) H 05/15/24 14:17 MCH 31.6 pg (27-33) 05/15/24 14:17 MCHC 30.4 g/dL (30-55) 05/15/24 14:17 RDW 14.9 % (12.1-15.1) 05/15/24 14:17 Plt Count 159 10^3/cmm (157-399) 05/15/24 14:17 MPV 11.5 fL (7.4-10.4) H 05/15/24 14:17 Neut % (Auto) 63.3 % 05/15/24 14:17 Lymph % (Auto) 26.4 % 05/15/24 14:17 [place] % (Auto) 6.2 % 05/15/24 14:17 Eos % (Auto) 2.2 % 05/15/24 14:17 Baso % (Auto) 1.7 % 05/15/24 14:17 Neut # (Auto) 2.56 10^3/uL (1.8-7.7) 05/15/24 14:17 Lymph # (Auto) 1.1 10^3/uL (0.8-4.8) 05/15/24 14:17 [place] # (Auto) 0.3 10^3/uL (0.2-0.9) 05/15/24 14:17 Eos # (Auto) 0.1 10^3/uL (0.0-0.8) 05/15/24 14:17 Baso # (Auto) 0.1 10^3/uL (0.0-0.1) 05/15/24 14:17 Nucleated RBC % (auto) 0 % 05/15/24 14:17 Nucleated RBCs # 0.0 /100WBC 05/15/24 14:17 Sodium 138 mmol/L (136-145) 05/15/24 14:17 Potassium 3.8 mmol/L (3.5-5.1) 05/15/24 14:17 Chloride 106 mmol/L (98-107) 05/15/24 14:17 Carbon Dioxide 22 mmol/L (22-29) 05/15/24 14:17 Anion Gap 13.8 (5-19) 05/15/24 14:17 BUN 8 mg/dL (6-20) 05/15/24 14:17 Creatinine 0.8 mg/dL (0.5-0.9) 05/15/24 14:17 GFR Calculation 74.2 mL/min (90-130) L 05/15/24 14:17 Glucose 114 mg/dL (65-115) 05/15/24 14:17 Calculated Osmolality 285 mOsm/kg (285-295) 05/15/24 14:17 Calcium 8.0 mg/dL (8.5-10.5) L 05/15/24 14:17 Total Bilirubin 0.6 mg/dL (0.15-1.2) 05/15/24 14:17 AST 15 U/L (0-32) 05/15/24 14:17 ALT 6 U/L (0-33) 05/15/24 14:17 Alkaline Phosphatase 78 U/L (35-105) 05/15/24 14:17 Troponin T Baseline 18 ng/L (0-10) H 05/15/24 14:17 Troponin T 120 Minute 17.59 ng/L (0-10) H 05/15/24 16:40 Delta Troponin T -0.41 ABS# (0-10) L 05/15/24 16:40 NT-Pro-B Natriuret Pep 212 pg/mL (0-125) H 05/15/24 14:17 Total Protein 5.6 g/dL (6.6-8.7) L 05/15/24 14:17 Albumin 3.8 g/dL (3.5-5.2) 05/15/24 14:17 Globulin 1.8 g/dL (1.3-4.6) 05/15/24 14:17 All radiology interpretation(s) finalized by discharge Discharge Plan Discharge Patient Disposition: Home Clinical Impression: Chest pain Condition: Stable Prescriptions: No Action buprenorphine HCl 8 mg tablet, sublingual 8 mg sublingual DAILY gabapentin 300 mg capsule 300 mg PO BID leflunomide 20 mg tablet 20 mg PO DAILY Qty: 90 1RF sulfasalazine 500 mg tablet 1 g PO BID Qty: 120 5RF Rx Instructions: take with food prednisone 5 mg tablet 5 mg PO DAILY Qty: 90 1RF Vraylar 3 mg capsule 3 mg PO DAILY Qty: 30 2RF duloxetine 60 mg capsule,delayed release(DR/EC) 60 mg PO DAILY Qty: 30 2RF Rx Instructions: take 1 capsule BY MOUTH EVERY DAY fluconazole 150 mg tablet 150 mg PO DAILY PRN (Reason: yeast infect) Qty: 7 0RF nitroglycerin [Nitrostat] 0.4 mg tablet, sublingual 0.4 mg sublingual Q5M PRN (Reason: chest pain) Qty: 100 0RF Rx Instructions: do not exceed 3 doses per episode ondansetron HCl 8 mg tablet 8 mg PO DAILY PRN (Reason: nausea and vomiting) Qty: 30 0RF Rx Instructions: TAKE ONE TABLET BY MOUTH DAILY cyclobenzaprine 10 mg tablet 10 mg PO BID Qulipta 60 mg tablet 60 mg PO DAILY Qty: 60 2RF (DME) Monoject Safety Syringes 3 mL 25 gauge x 5/8 syringe See Rx Instructions .Route Qty: 100 0RF Rx Instructions: As directed sucralfate 100 mg/mL suspension 10 ml PO TID Qty: 1000 1RF albuterol sulfate 90 mcg/actuation aerosol powdr breath activated 2 inh inhalation Q6H PRN (Reason: shortness of breath or wheezing) Qty: 1 0RF metoprolol tartrate 25 mg tablet 12.5 mg PO BID 30 Days Qty: 30 5RF topiramate 100 mg tablet 100 mg PO BID Qty: 60 5RF cholecalciferol (vitamin D3) 25 mcg (1,000 unit) capsule 25 mcg PO DAILY Qty: 90 0RF nystatin 100,000 unit/gram cream 1 applic topical BID Qty: 30 1RF Ingrezza 80 mg capsule 80 mg PO DAILY Qty: 30 2RF atorvastatin 40 mg tablet 40 mg PO DAILY 30 Days Qty: 30 5RF buspirone 7.5 mg tablet 7.5 mg PO BID Qty: 60 1RF prednisone 20 mg tablet See Rx Instructions .ROUTE .COMPLEX PRN (Reason: joint pain) Rx Instructions: 20 mg orally ;TAKE 2 TABLETS BY MOUTH EVERY DAY FOR SEVEN DAYS NEEDED FOR joint pain flare levothyroxine 75 mcg tablet 75 mcg PO DAILY Rx Instructions: TAKE 1 TABLET BY MOUTH EVERY DAY pantoprazole 40 mg tablet,delayed release (DR/EC) 40 mg PO BID Rx Instructions: TAKE ONE TABLET BY MOUTH TWICE DAILY Discharge Orders: Discharge ED (Routine); Ordered 05/15/24 Ordered By: Vipin Rosenbaum Referrals: Sandra Zee MD [Primary Care Provider] - Patient Instructions: Chest Pain (ED), Shortness of Breath (ED) Activity Restrictions/Additional Instructions: Please closely follow-up with textile clothing and footwear mechanic and primary care, and continue wearing Holter monitor. Your workup today in the emergency department was unremarkable, however if your chest pain continues to worsen, if you continue to have shortness of breath or requiring oxygen to maintain above 90%, please return immediately. Coding Level of Care Code ED Aluminum Welder for Reji Ashton
[2024-05-15 18:15] VITALS: BP 119/86; PULSE 98; O2SAT 96
[2024-05-15] MEDS: iohexol 350 mg/mL 500 mL Btl (per mL) IV (18:35)
[2024-05-15] MEDS: dexamethasone 10 mg/mL INJ IVP (20:22)
[2024-05-15 20:24] VITALS: BP 133/106; PULSE 82; O2SAT 95
[2024-05-15 20:25] VITALS: BP 133/106; PULSE 84; O2SAT 95
== END 2024-05-15 20:26 | disposition home or self-care (01) ==
PROVIDERS: Physician Assistant; Emergency Provider Physician Assistant; PCP Family Medicine
DX: R07.9 Chest pain, unspecified (principal); I10 Essential (primary) hypertension; E78.5 Hyperlipidemia, unspecified; I25.10 Atherosclerotic heart disease of native coronary artery without angina pectoris
CPT/HCPCS: 36415; 71045; 71260; 80053; 83880; 84484; 85025; 93005; 96374; 96375; 99285; J1100; J2270

== ENCOUNTER 2024-05-22 10:36 | Outpatient (CLI) | payer MEDICARE, MEDICAID, SELFPAY | END 2024-05-22 10:37 | disposition home or self-care (01) | LOC: RT 10:37 | PROVIDERS: PCP Family Medicine | DX: R06.02 Shortness of breath (principal) | CPT/HCPCS: 94010 ==

== ENCOUNTER → 2024-05-29 09:44 | Outpatient (BNVA) | payer MEDICARE, SELFPAY | PROVIDERS: PCP Family Medicine; Visit Provider Internal Medicine Rheumatology | DX: Z79.899 Other long term (current) drug therapy (principal); M06.041 Rheumatoid arthritis without rheumatoid factor, right hand; M06.042 Rheumatoid arthritis without rheumatoid factor, left hand; M54.41 Lumbago with sciatica, right side; M54.42 Lumbago with sciatica, left side; G89.29 Other chronic pain; L71.0 Perioral dermatitis; R76.8 Other specified abnormal immunological findings in serum | CPT/HCPCS: 36415; 80076; 82565; 85025; 85651; 86140; 99214 ==

== ENCOUNTER → 2024-08-06 13:08 | Outpatient (BNVA) | payer MEDICARE, SELFPAY | PROVIDERS: PCP Family Medicine; Visit Provider Internal Medicine Rheumatology | DX: M54.41 Lumbago with sciatica, right side (principal); M54.42 Lumbago with sciatica, left side; G89.29 Other chronic pain; L71.0 Perioral dermatitis; M06.041 Rheumatoid arthritis without rheumatoid factor, right hand; M06.042 Rheumatoid arthritis without rheumatoid factor, left hand; R76.8 Other specified abnormal immunological findings in serum; Z79.899 Other long term (current) drug therapy | CPT/HCPCS: 99214 ==

== ENCOUNTER → 2024-08-22 14:03 | Outpatient (BNVA) | payer MEDICARE, SELFPAY | PROVIDERS: PCP Family Medicine; Visit Provider Physician Assistant | DX: G56.01 Carpal tunnel syndrome, right upper limb (principal) | CPT/HCPCS: 99213 ==

== ENCOUNTER 2024-08-22 14:37 | Outpatient (CLI) | payer MEDICARE, SELFPAY | END 2024-08-22 14:38 | disposition home or self-care (01) | LOC: SOT 14:39 | PROVIDERS: PCP Family Medicine; Visit Provider Student in an Organized Health Care Education/Training Program | DX: Z47.89 Encounter for other orthopedic aftercare (principal) | CPT/HCPCS: L3908 ==

== ENCOUNTER 2024-08-29 10:43 | Outpatient (RCR) | payer MEDICARE, SELFPAY | END 2024-09-24 23:59 | disposition home or self-care (01) | LOC: SOT 10:43 | PROVIDERS: Visit Provider Physician Assistant | DX: G56.01 Carpal tunnel syndrome, right upper limb (principal); Z48.811 Encounter for surgical aftercare following surgery on the nervous system | CPT/HCPCS: 97022; 97035; 97110; 97140; 97165 ==

== ENCOUNTER 2024-08-30 15:58 | Outpatient (CLI) | payer MEDICARE, SELFPAY ==
[2024-08-30 16:39] LABS: Erythrocyte Sedimentation Rate 4 mm/hr (0-15)
[2024-08-30 16:42] LABS: Basophils # 0.1 10^3/uL (0.0-0.1); Basophils % 1.8 %; Eosinophils # 0.1 10^3/uL (0.0-0.8); Eosinophils % 3.3 %; Hematocrit 36.2 % (36-47); Lymphocytes % 24.7 %; Mean Corpuscular HGB Conc 29.3 g/dL (30-55); Mean Corpuscular Hemoglobin 31.3 pg (27-33); Mean Corpuscular Volume 106.8 fl (85-98); Mean Platelet Volume 12.3 fL (7.4-10.4); Monocytes # 0.2 10^3/uL (0.2-0.9); Monocytes % 6.1 %; Neutrophils # 2.53 10^3/uL (1.8-7.7); Neutrophils % 63.8 %; Nucleated Red Blood Cells % 0 %; Platelet Count 164 10^3/cmm (157-399); Red Blood Count 3.39 10^6/uL (3.85-5.65); Red Cell Distribution Width 15.5 % (12.1-15.1); White Blood Count 3.96 10^3/uL (3.29-11.43)
[2024-08-30 17:46] LABS: Alanine Aminotransferase 22 U/L (0-33); Albumin Level 3.2 g/dL (3.5-5.2); Alkaline Phosphatase 157 U/L (35-105); Aspartate Amino Transferase 40 U/L (0-32); Globulin 2.3 g/dL (1.3-4.6); Glomerular Filtration Rate 64.5 mL/min (90-130); Total Bilirubin 0.3 mg/dL (0.15-1.2); Total Protein 5.5 g/dL (6.6-8.7)
== END 2024-08-30 15:59 | disposition home or self-care (01) ==
LOC: LAB 16:05
PROVIDERS: PCP Family Medicine; Visit Provider Internal Medicine Rheumatology
DX: Z79.899 Other long term (current) drug therapy (principal); M06.041 Rheumatoid arthritis without rheumatoid factor, right hand; M06.042 Rheumatoid arthritis without rheumatoid factor, left hand
CPT/HCPCS: 36415; 80076; 82565; 85025; 85651; 86140

== ENCOUNTER → 2024-09-05 13:42 | Outpatient (BNVA) | payer MEDICARE, SELFPAY | PROVIDERS: PCP Family Medicine; Visit Provider Psychiatry & Neurology Neurology | DX: G43.719 Chronic migraine without aura, intractable, without status migrainosus (principal); Z79.899 Other long term (current) drug therapy | CPT/HCPCS: 99212 ==

== ENCOUNTER → 2024-09-18 12:43 | Outpatient (BNVA) | payer MEDICARE, MEDICAID, SELFPAY | PROVIDERS: PCP Family Medicine; Visit Provider Internal Medicine Cardiovascular Disease | DX: I25.119 Atherosclerotic heart disease of native coronary artery with unspecified angina pectoris (principal); R00.0 Tachycardia, unspecified; I95.9 Hypotension, unspecified | CPT/HCPCS: 99214 ==

== ENCOUNTER 2024-09-25 06:00 | Outpatient (RCR) | payer MEDICARE, MEDICAID, SELFPAY | END 2024-10-24 23:59 | disposition home or self-care (01) | LOC: SOT 06:00 | PROVIDERS: PCP Family Medicine; Visit Provider Physician Assistant | DX: G56.01 Carpal tunnel syndrome, right upper limb (principal) | CPT/HCPCS: 99214 ==

== ENCOUNTER 2024-10-03 10:04 | Emergency (ER) | payer MEDICARE, MEDICAID, SELFPAY ==
--- NOTE | 2024-10-03 10:05 | ECG_ITS ---
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 Measurements Intervals Vass Rate: 119 P: 79 GA: 126 QRS: 70 QRSD: 82 T: 45 QT: 339 QTc: 477 Interpretive Statements SINUS TACHYCARDIA NONSPECIFIC ST & T-WAVE ABNORMALITY ABNORMAL RHYTHM ECG Compared to ECG 05/15/2024 17:24:56 Sinus rhythm no longer present T-wave abnormality still present Electronically Signed On 10-03-2024 15:58:06 CDT by Neftali Holloway M.D. [email or web address]
--- NOTE | 2024-10-03 10:05 | XR_ITS ---
WS: [id number] Exam: XR chest 1V portable [id number] Date/Time of Exam: 10/03/2024 10:05 AM Reason For Exam: cp Comparison 05/15/2024. The lungs are clear and fully expanded. Normal cardiomediastinal silhouette. No pleural effusions. Unremarkable bony structures. XR/XR chest 1V portable [id number] IMPRESSION: 1. Negative chest.
[2024-10-03 10:10] VITALS: BP 136/87; PULSE 121; RESP 16; TEMP 36.9; O2SAT 99; BMI 26.8
[2024-10-03 10:47] LABS: Basophils # 0.1 10^3/uL (0.0-0.1); Basophils % 0.9 %; Eosinophils # 0.1 10^3/uL (0.0-0.8); Eosinophils % 1.2 %; Hematocrit 39.2 % (36-47); Lymphocytes # 1.4 10^3/uL (0.8-4.8); Mean Corpuscular HGB Conc 31.1 g/dL (30-55); Mean Corpuscular Volume 102.9 fl (85-98); Mean Platelet Volume 11.9 fL (7.4-10.4); Monocytes # 0.3 10^3/uL (0.2-0.9); Monocytes % 5.7 %; Neutrophils # 3.88 10^3/uL (1.8-7.7); Neutrophils % 67.5 %; Nucleated Red Blood Cells % 0 %; Platelet Count 240 10^3/cmm (157-399); Red Blood Count 3.81 10^6/uL (3.85-5.65); Red Cell Distribution Width 14.6 % (12.1-15.1); White Blood Count 5.75 10^3/uL (3.29-11.43)
[2024-10-03 11:01] LABS: INR 0.89 (0.8-1.2)
[2024-10-03 11:05] LABS: Troponin(5th) Baseline 12 ng/L (0-10)
--- NOTE | 2024-10-03 11:09 | CT_ITS ---
WS: [id number] CT ABDOMEN PELVIS TECHNIQUE: Contrast-enhanced CT of the abdomen and pelvis with coronal and sagittal reformatted images. CLINICAL INFORMATION: abd pain COMPARISON: CT 02/25/2024 DLP: 606.[address] scans at [facility] use at least one of these dose optimization techniques: automated exposure control; mA and/or kV adjustment per patient size (includes targeted exams where dose is matched to clinical indication); or iterative reconstruction. FINDINGS: Prior postoperative changes gastric bypass. Cholecystectomy clips. Chronic intra and extrahepatic biliary duct dilatation appears unchanged since 02/25/2024. Fatty liver. Lung bases are well aerated. Normal pancreatic parenchymal enhancement. Normal caliber abdominal aorta. Adrenal glands are normal. No hydronephrosis. Normal sigmoid colon. No evidence of small or large bowel obstruction. CT/CT abdomen pelvis w con* [id number] IMPRESSION: 1. No acute findings in the abdomen or pelvis. 2. Prior cholecystectomy. 3. Stable moderate intra and extrahepatic biliary ductal dilatation. 4. Prior postoperative changes gastric bypass. 5. Fatty liver.
[2024-10-03 11:10] LABS: Albumin Level 4.1 g/dL (3.5-5.2); Alkaline Phosphatase 92 U/L (35-105); Blood Urea Nitrogen 11 mg/dL (6-20); Calcium 9.1 mg/dL (8.5-10.5); Chloride 107 mmol/L (98-107); Creatinine Clr Calc Pharmacy 62.1342; Globulin 2.2 g/dL (1.3-4.6); Lipase 52 U/L (13-60); Osmolality Calculated 291 mOsm/kg (285-295); Sodium 140 mmol/L (136-145); Total Bilirubin 0.6 mg/dL (0.15-1.2)
--- NOTE | 2024-10-03 11:15 | ED_ITS ---
HPI - Chest Pain 2 General: Chief Complaint: Chest Pain Stated Complaint: chest and abd pain Time Seen by Provider: 10/03/24 11:06 Source: patient Mode of arrival: ambulatory Limitations: no limitations History of Present Illness: 59-year-old female is here with multiple complaints she states she has been having chest pain drawl pain abdominal pain nausea vomiting for the last 2 days. States pains been sharp in nature rates an 8 out of 10 currently she denies any fevers denies any worse improving factors. She states she had cold turkey stop taking her Suboxone 2 weeks ago she denies any fevers. Associated symptoms: Reports abdominal pain, nausea and vomiting; Deny dyspnea or fever(s) Related Data Home Medications ?Medication ?Instructions ?Recorded ?Confirmed cyclobenzaprine 10 mg tablet 10 mg PO BID 05/14/2403/21 Previous Rx's ?Medication ?Instructions ?Recorded cholecalciferol (vitamin D3) 25 25 mcg PO DAILY #90 ca ps 12/02/22 mcg (1,000 unit) capsule sucralfate 100 mg/mL oral 10 ml PO TID #1,000 mL 03/12 suspension nystatin 100,000 unit/gram topical 1 applic topical BI D #30 grams 04/05/24 cream nitroglycerin 0.4 mg sublingual 0.4 mg sublingual Q5M PRN chest 04/12/24 tablet (Nitrostat) pain #100 tabs albuterol sulfate 90 mcg/actuation 2 inh inhalation Q6 H PRN shortness 06/14/24 breath activated powder inhaler of breath or wheezing #1 ea levothyroxine 75 mcg tablet 75 mcg PO DAILY #90 tabs 1 08/15/23 pantoprazole 40 mg tablet,delayed 40 mg PO BID #180 ta bs 06/14/24 release gabapentin 300 mg capsule See Rx Instructions PO .COMP EULALIA 08/06/24 #90 caps ondansetron HCl 8 mg tablet 8 mg PO DAILY PRN nausea a nd 08/13/24 vomiting #30 tabs topiramate 100 mg tablet 100 mg PO BID #60 tabs 08/13 folic acid 800 mcg tablet 0.8 mg PO DAILY #1 tab 08/14 right custon night splint #1 ea 08/22/24 atogepant 60 mg tablet (Qulipta) 60 mg PO DAILY #60 ta bs 09/05/24 atorvastatin 40 mg tablet See Rx Instructions .Route 0 09/11/24 .COMPLEX #90 tabs buspirone 15 mg tablet 15 mg PO BID #60 tabs cariprazine 3 mg capsule (Vraylar) 3 mg PO DAILY #30 c aps 09/17/24 duloxetine 60 mg capsule,delayed 60 mg PO DAILY #30 ca ps 09/17/24 release valbenazine 80 mg capsule 80 mg PO DAILY #30 caps 08/26 10/19 (Ingrezza) isosorbide mononitrate 30 mg 15 mg (1/2 x 30 mg) PO DA ANAY #45 09/18/24 tablet,extended release 24 hr tabs metoprolol succinate 25 mg 12.5 mg (1/2 x 25 mg) PO .Q HS #45 09/18/24 tablet,extended release 24 hr tabs adalimumab 40 mg/0.8 mL 40 mg (0.8 mL) SUBCUT Q14D # 2 ea 09/25/24 subcutaneous pen kit (Humira Pen) methotrexate sodium 2.5 mg tablet 10 mg (4 x 2.5 mg) P O .Q7days #60 09/25/24 tabs prednisone 20 mg tablet See Rx Instructions PO .COMP EULALIA 09/25/24 PRN joint pain flare #30 tabs prednisone 5 mg tablet 5 mg PO DAILY #90 tabs 09/25 sulfasalazine 500 mg tablet 1 g (2 x 500 mg) PO BID #1 20 tabs 09/25/24 ondansetron 4 mg disintegrating 4 mg PO Q6H PRN nausea and 10/03/24 tablet vomiting #14 tabs Allergies Allergy/AdvReac Type Severity Reaction Status Date / Time azithromycin Allergy Mild ALGY-Rash Verified 09/25/24 13:19 mirtazapine (From Remeron) Allergy Mild ALGY-Rash Verified 09/25/24 13:19 tolmetin Allergy ALGY-Rash Verified 09/25/24 13:19 Review of Systems 2 Const: Denies: fever(s), chills, body aches or change in appetite ENMT: Denies: throat pain or dental pain Card: Reports: chest pain Resp: Denies: dyspnea GI: Reports: abdominal pain, nausea and vomiting; Denies: diarrhea : Denies: dysuria Musc: Denies: neck pain or back pain Skin/Breast: Denies: rash Neuro: Denies: headache(s) PFSH ED 2 PFSH: Medical History Chronic superficial gastritis without bleeding on EGD Hyperlipidemia LDL goal <70 CAD (coronary artery disease), [place] coronary artery 50% LAD on cardac cath 9.24 Ascending aorta dilatation 3.9cm on cardiac cath 9.24 Benign hypertension Shortness of breath on exertion Polypharmacy Tachycardia IBS (irritable bowel syndrome) Fibromyalgia Acquired hypothyroidism Headache, chronic migraine without aura, intractable Chronic low back pain GERD with esophagitis Tardive dyskinesia Chronic pancreatitis currently resolved Seronegative rheumatoid arthritis of both hands MDD (major depressive disorder) Inflammatory arthritis Depression with anxiety Joint pain High risk medication use Psychiatric care Surgical History Hx of cardiac cath 03/20 OZH 50% LAD Bariatric surgery status History of esophagogastroduodenoscopy (EGD) Hx of colonoscopy with polypectomy History of carpal tunnel surgery of right wrist 2023 Hx of breast biopsy right' X 2; both benign History of Titi-en-Y gastric bypass History of hysterectomy Hyst due to prolapse, no cancer; ovaries remaining History of cholecystectomy History of shoulder surgery bilateral; for frozen shoulders History of tonsillectomy and adenoidectomy Family History Mother Cancer Breast Cancer Migraines Hypertension Diabetes mellitus, type 2 Grandmother Cancer Colon Other Chronic kidney disease (CKD) Diabetes Hyperlipidemia Lung disease Rheumatoid arthritis Stroke Denies family history of Lupus CAD (coronary artery disease) Psoriatic arthritis Social History Smoking and tobacco/nicotine status: never used tobacco/nicotine Second hand smoke exposure: No Alcohol intake: never Substance/Drug Use: current Substance/Drug use frequency: few times a week Other substance/drug use details: Bhargav Household members: none Marital status: Legally Number of children: 3 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 Reproductive History: Spontaneous abortions: No Physical Exam 2 Const: COMMON NORMALS: no acute distress, patient oriented x3 and healthy appearing HENMT: COMMON NORMALS: normocephalic and atraumatic HEAD & SCALP: n ormocephalic and atraumatic Eye: COMMON NORMALS: conjunctivae normal CONJUNCTIVA: Yes conjunctivae normal Neck/C-Spine: COMMON NORMALS: full ROM and supple Chest: COMMONS NORMALS: normal inspection of the chest Resp: COMMON NORMALS: normal respiratory effort, No retractions, No use of accessory muscles and clear to auscultation bilaterally AUSCULTATION: clear to auscultation bilaterally Cardio: COMMON NORMALS: regular rhythm and No murmurs present (Cardio) R ATE: tachycardic RHYTHM: regular rhythm GI: COMMON NORMALS: Normal to inspection, nondistended, normoactive bowel sounds present, Soft to palpation and no masses PALPATION: Yes Soft to palpation OTHER: epigastric tenderness Extremity: COMMON NORMALS: normal to inspection and full ROM Neuro: COMMON NORMALS: patient oriented x3, moves all extremities and no focal motor deficits Psych: COMMON NORMALS: mental status grossly normal, Normal thought process present and cooperative THOUGHT PROCESS: Normal thought process present Skin: COMMON NORMALS: no rashes or lesions noted and no wounds GENERAL SKIN EXAM: no rashes or lesions noted Course 2 Vital Signs: Vital signs: Vital Signs Temperature 98.5 F 10/03/24 10:10 Pulse Rate 101 H 10/03/24 14:21 Respiratory Rate 18 10/03/24 14:20 Blood Pressure 109/91 10/03/24 14:21 Pulse Oximetry 98 10/03/24 14:21 Oxygen Delivery Me thod Room Air 10/03/24 10:10 MDM - Chest Pain Medical Decision Making Patient presents here with chest pain abdominal pains atypical in nature CT scan of her abdomen is normal blood works normal no signs of ACS she stable for discharge follow-up PCP return if worsening. Medical Records I reviewed the patient's medical records. Lab Data I reviewed the patient's lab results. 10/03/24 10:29 10/03/24 10:29 Radiology Impressions Chest X-Ray 10/03/24 10:05 IMPRESSION: 1. Negative chest. Abdomen/Pelvis CT 10/03/24 11:09 IMPRESSION: 1. No acute findings in the abdomen or pelvis. 2. Prior cholecystectomy. 3. Stable moderate intra and extrahepatic biliary ductal dilatation. 4. Prior postoperative changes gastric bypass. 5. Fatty liver. Laboratory Results WBC 5.75 10^3/uL (3.29-11.43) 10/03/24 10: RBC 3.81 10^6/uL (3.85-5.65) L 10/03/24 10: Hgb 12.20 g/dL (11.27-16.99) 10/03/24 10:29 Hct 39.2 % (36-47) 10/03/24 10: MCV 102.9 fl (85-98) H 10/03/24 10:29 MCH 32.0 pg (27-33) 10/03/24 10: MCHC 31.1 g/dL (30-55) 10/03/24 10: RDW 14.6 % (12.1-15.1) 10/03/24 10: Plt Count 240 10^3/cmm (157-399) 10/03/24 10: MPV 11.9 fL (7.4-10.4) H 10/03/24 10: Neut % (Auto) 67.5 % 10/03/24 10:29 Lymph % (Auto) 24.0 % 10/03/24 10:29 [place] % (Auto) 5.7 % 10/03/24 10:29 Eos % (Auto) 1.2 % 10/03/24 10: Baso % (Auto) 0.9 % 10/03/24 10: Neut # (Auto) 3.88 10^3/uL (1.8-7.7) 10/03/24 10:29 Lymph # (Auto) 1.4 10^3/uL (0.8-4.8) 10/03/24 10:29 [place] # (Auto) 0.3 10^3/uL (0.2-0.9) 10/03/24 10:29 Eos # (Auto) 0.1 10^3/uL (0.0-0.8) 10/03/24 10: Baso # (Auto) 0.1 10^3/uL (0.0-0.1) 10/03/24 10: Nucleated RBC % (auto) 0 % 10/03/24 10: Nucleated RBCs # 0.0 /100WBC 10/03/24 10: PT 12.70 SECONDS (12.1-14.9) 10/03/24 10:29 INR 0.89 (0.8-1.2) 10/03/24 10:29 Sodium 140 mmol/L (136-145) 10/03/24 10:29 Potassium 3.4 mmol/L (3.5-5.1) L 10/03/24 10:29 Chloride 107 mmol/L (98-107) 10/03/24 10:29 Carbon Dioxide 18 mmol/L (22-29) L 10/03/24 10:29 Anion Gap 19.4 (5-19) H 10/03/24 10:29 BUN 11 mg/dL (6-20) 10/03/24 10:29 Creatinine 1.0 mg/dL (0.5-0.9) H 10/03/24 10: GFR Calculation 57.1 mL/min (90-130) L 10/03/24 10:29 Glucose 131 mg/dL (65-115) H 10/03/24 10:29 Calculated Osmolality 291 mOsm/kg (285-295) 10/03/24 10:29 Calcium 9.1 mg/dL (8.5-10.5) 10/03/24 10:29 Total Bilirubin 0.6 mg/dL (0.15-1.2) 10/03/24 10:29 AST 21 U/L (0-32) 10/03/24 10:29 ALT 13 U/L (0-33) 10/03/24 10:29 Alkaline Phosphatase 92 U/L (35-105) 10/03/24 10:29 Troponin T Baseline 12 ng/L (0-10) H 10/03/24 10:29 Troponin T 120 Minute 10.59 ng/L (0-10) H 10/03/24 13:35 Delta Troponin T -1.41 ABS# (0-10) L 10/03/24 13:35 Total Protein 6.3 g/dL (6.6-8.7) L 10/03/24 10:29 Albumin 4.1 g/dL (3.5-5.2) 10/03/24 10:29 Globulin 2.2 g/dL (1.3-4.6) 10/03/24 10:29 Lipase 52 U/L (13-60) 10/03/24 10:29 All radiology interpretation(s) finalized by discharge EKG Data EKG 1: I personally reviewed and interpreted this EKG as follows: EKG interpretation date: 10/03/24 EKG interpretation time: 11:49 Interpretation: sinus tach hr [address] or t wave abnormalities qrs 90 qtc 390 Discharge Plan Discharge Patient Disposition: Home Clinical Impression: Atypical chest pain, Abdominal pain Condition: Stable Prescriptions: New ondansetron 4 mg tablet,disintegrating 4 mg PO Q6H PRN (Reason: nausea and vomiting) Qty: 14 0RF No Action nitroglycerin [Nitrostat] 0.4 mg tablet, sublingual 0.4 mg sublingual Q5M PRN (Reason: chest pain) Qty: 100 0RF Rx Instructions: do not exceed 3 doses per episode cyclobenzaprine 10 mg tablet 10 mg PO BID (DME) right custon night splint See Rx Instructions .Route .MEDSUPPLY Qty: 1 0RF Rx Instructions: As directed methotrexate sodium 2.5 mg tablet 10 mg PO .Q7days Qty: 60 1RF prednisone 5 mg tablet 5 mg PO DAILY Qty: 90 1RF prednisone 20 mg tablet See Rx Instructions PO .COMPLEX PRN (Reason: joint pain flare) Qty: 30 1RF Rx Instructions: take 1 or 2 tab daily for up to 7 days as needed for arthritis flare PO PRN; sulfasalazine 500 mg tablet 1 g PO BID Qty: 120 4RF Rx Instructions: take with food Humira Pen 40 mg/0.8 mL pen injector kit 40 mg SUBCUT Q14D Qty: 2 5RF isosorbide mononitrate 30 mg tablet extended release 24 hr 15 mg PO DAILY Qty: 45 3RF metoprolol succinate 25 mg tablet extended release 24 hr 12.5 mg PO .Q HS Qty: 45 3RF sucralfate 100 mg/mL suspension 10 ml PO TID Qty: 1000 1RF Qulipta 60 mg tablet 60 mg PO DAILY Qty: 60 5RF folic acid 800 mcg tablet 0.8 mg PO DAILY Qty: 1 0RF gabapentin 300 mg capsule See Rx Instructions PO .COMPLEX Qty: 90 4RF Rx Instructions: 300mg in am and 600mg at bedtime orally; Ingrezza 80 mg capsule 80 mg PO DAILY Qty: 30 2RF Vraylar 3 mg capsule 3 mg PO DAILY Qty: 30 2RF buspirone 15 mg tablet 15 mg PO BID Qty: 60 2RF cholecalciferol (vitamin D3) 25 mcg (1,000 unit) capsule 25 mcg PO DAILY Qty: 90 0RF nystatin 100,000 unit/gram cream 1 applic topical BID Qty: 30 1RF levothyroxine 75 mcg tablet 75 mcg PO DAILY Qty: 90 3RF Rx Instructions: TAKE 1 TABLET BY MOUTH EVERY DAY pantoprazole 40 mg tablet,delayed release (DR/EC) 40 mg PO BID Qty: 180 1RF Rx Instructions: TAKE ONE TABLET BY MOUTH TWICE DAILY albuterol sulfate 90 mcg/actuation aerosol powdr breath activated 2 inh inhalation Q6H PRN (Reason: shortness of breath or wheezing) Qty: 1 0RF ondansetron HCl 8 mg tablet 8 mg PO DAILY PRN (Reason: nausea and vomiting) Qty: 30 3RF Rx Instructions: TAKE ONE TABLET BY MOUTH DAILY topiramate 100 mg tablet 100 mg PO BID Qty: 60 5RF atorvastatin 40 mg tablet See Rx Instructions .ROUTE .COMPLEX Qty: 90 1RF Dose Instruction: TAKE 1 TABLET BY MOUTH EVERY DAY FOR 30 DAYS Rx Instructions: TAKE 1 TABLET BY MOUTH EVERY DAY FOR 30 DAYS duloxetine 60 mg capsule,delayed release(DR/EC) 60 mg PO DAILY Qty: 30 2RF Rx Instructions: take 1 capsule BY MOUTH EVERY DAY Discharge Orders: Discharge ED (Routine); Ordered 10/03/24 Ordered By: Suhail Geiger Referrals: Sandra Zee MD [Primary Care Provider] - 4-7 days Discharge Diet: Advance as tolerated Discharge Activity: Resume usual activity Patient Instructions: Chest Pain (ED), Abdominal Pain (ED) Print Language: Salvadorean Coding Level of Care Code ED Pbx Mechanic for Reji Ashton
[2024-10-03 11:26] LABS: Alanine Aminotransferase 13 U/L (0-33); Aspartate Amino Transferase 21 U/L (0-32); Potassium 3.4 mmol/L (3.5-5.1)
[2024-10-03 11:29] LABS: Anion Gap 19.4 (5-19); Carbon Dioxide 18 mmol/L (22-29); Glomerular Filtration Rate 57.1 mL/min (90-130); Glucose 131 mg/dL (65-115); Total Protein 6.3 g/dL (6.6-8.7)
[2024-10-03 11:40] VITALS: RESP 16; O2SAT 98
[2024-10-03] MEDS: morphine 4 mg/mL SDV 1 mL IVP ×2 (11:40→14:20)
[2024-10-03] MEDS: ondansetron 2 mg/ML SDV 2 mL 4 MG IVP (11:40)
--- NOTE | 2024-10-03 11:49 | ECG_ITS ---
[facility] Date: 2024-10-03 Pat Name: Harper Dailey Department: Room: Gender: Female [place] Drawer: : 1965 Requested By: Suhail Geiger Order Number: [id number] Jenny MD: Neftali Holloway M.D. Measurements Intervals Richards Rate: 104 P: 65 LA: 131 QRS: 41 QRSD: 90 T: 16 QT: 330 QTc: 434 Interpretive Statements SINUS TACHYCARDIA NONSPECIFIC ST & T-WAVE ABNORMALITY ABNORMAL RHYTHM ECG Compared to ECG 10/03/2024 10:13:08 No significant changes Electronically Signed On 10-03-2024 21:31:46 CDT by Neftali Holloway M.D. [email or web address]
[2024-10-03] MEDS: iohexol 350 mg/mL 500 mL Btl (per mL) IV (12:11)
[2024-10-03 12:45] VITALS: BP 112/73; PULSE 84; O2SAT 98
[2024-10-03] MEDS: HYDROmorphone 0.5 MG/0.5 ML INJ IVP (12:49)
[2024-10-03 14:00] LABS: Troponin 5 2HR 10.59 ng/L (0-10)
[2024-10-03 14:01] LABS: Troponin 5 2HR Delta -1.41 ABS# (0-10)
[2024-10-03 14:20] VITALS: RESP 18; O2SAT 98
[2024-10-03 14:21] VITALS: BP 109/91; PULSE 101; O2SAT 98
[2024-10-03] MEDS: promethazine 25 mg/mL SDV 1 mL IM (14:21)
== END 2024-10-03 14:22 | disposition home or self-care (01) ==
PROVIDERS: Emergency Provider Emergency Medicine; PCP Family Medicine
DX: R07.89 Other chest pain (principal); R10.9 Unspecified abdominal pain; I25.10 Atherosclerotic heart disease of native coronary artery without angina pectoris; I10 Essential (primary) hypertension; E78.5 Hyperlipidemia, unspecified
CPT/HCPCS: 36415; 71045; 74177; 80053; 83690; 84484; 85025; 85610; 93005; 96372; 96374; 96375; 96376; 99285; J1171; J2270; J2405; J2550

== ENCOUNTER 2024-10-04 22:31 | Emergency (ER) | payer MEDICARE, MEDICAID, SELFPAY ==
[2024-10-04 22:37] VITALS: BP 164/113; PULSE 109; RESP 16; TEMP 36.9; O2SAT 97
[2024-10-04 22:41] VITALS: BP 129/97; PULSE 103; RESP 18; O2SAT 100
--- NOTE | 2024-10-04 23:07 | ED_ITS ---
HPI - Abdominal Pain General: Chief Complaint: Abdominal Pain Stated Complaint: Upper ABD Pain N/V Migraine Time Seen by Provider: 10/04/24 23:02 History of Present Illness: Patient presents to the ER with complaints of epigastric pain since noon today. But then patient has been going on for months that she is actually seen in the ER for last night had a complete thorough workup included CT scan of the abdomen pelvis. She says eating and drinking makes it worse. She said she is vomited too many times a day to count she has tried 2 doses of Zofran with no luck. Patient also had a migraine today and she took her normal migraine medicine but did not help. Patient was able to keep it down. Patient has an appointment to be seen by her PCP on Tuesday where she is been asked to go see a GI doctor. Patient is currently on Zofran as needed, Carafate 3 times daily, Protonix 40 twice daily Related Data Home Medications ?Medication ?Instructions ?Recorded ?Confirmed cyclobenzaprine 10 mg tablet 10 mg PO BID 05/14/2403/21 Previous Rx's ?Medication ?Instructions ?Recorded cholecalciferol (vitamin D3) 25 25 mcg PO DAILY #90 ca ps 12/02/22 mcg (1,000 unit) capsule sucralfate 100 mg/mL oral 10 ml PO TID #1,000 mL 03/12 suspension nystatin 100,000 unit/gram topical 1 applic topical BI D #30 grams 04/05/24 cream nitroglycerin 0.4 mg sublingual 0.4 mg sublingual Q5M PRN chest 04/12/24 tablet (Nitrostat) pain #100 tabs albuterol sulfate 90 mcg/actuation 2 inh inhalation Q6 H PRN shortness 06/14/24 breath activated powder inhaler of breath or wheezing #1 ea levothyroxine 75 mcg tablet 75 mcg PO DAILY #90 tabs 1 08/15/23 pantoprazole 40 mg tablet,delayed 40 mg PO BID #180 ta bs 06/14/24 release gabapentin 300 mg capsule See Rx Instructions PO .COMP EULALIA 08/06/24 #90 caps ondansetron HCl 8 mg tablet 8 mg PO DAILY PRN nausea a nd 08/13/24 vomiting #30 tabs topiramate 100 mg tablet 100 mg PO BID #60 tabs 08/13 folic acid 800 mcg tablet 0.8 mg PO DAILY #1 tab 08/14 right custon night splint #1 ea 08/22/24 atogepant 60 mg tablet (Qulipta) 60 mg PO DAILY #60 ta bs 09/05/24 atorvastatin 40 mg tablet See Rx Instructions .Route 0 09/11/24 .COMPLEX #90 tabs buspirone 15 mg tablet 15 mg PO BID #60 tabs cariprazine 3 mg capsule (Vraylar) 3 mg PO DAILY #30 c aps 09/17/24 duloxetine 60 mg capsule,delayed 60 mg PO DAILY #30 ca ps 09/17/24 release valbenazine 80 mg capsule 80 mg PO DAILY #30 caps 08/26 10/19 (Ingrezza) isosorbide mononitrate 30 mg 15 mg (1/2 x 30 mg) PO DA ANAY #45 09/18/24 tablet,extended release 24 hr tabs metoprolol succinate 25 mg 12.5 mg (1/2 x 25 mg) PO .Q HS #45 09/18/24 tablet,extended release 24 hr tabs adalimumab 40 mg/0.8 mL 40 mg (0.8 mL) SUBCUT Q14D # 2 ea 09/25/24 subcutaneous pen kit (Humira Pen) methotrexate sodium 2.5 mg tablet 10 mg (4 x 2.5 mg) P O .Q7days #60 09/25/24 tabs prednisone 20 mg tablet See Rx Instructions PO .COMP EULALIA 09/25/24 PRN joint pain flare #30 tabs prednisone 5 mg tablet 5 mg PO DAILY #90 tabs 09/25 sulfasalazine 500 mg tablet 1 g (2 x 500 mg) PO BID #1 20 tabs 09/25/24 ondansetron 4 mg disintegrating 4 mg PO Q6H PRN nausea and 10/03/24 tablet vomiting #14 tabs Allergies Allergy/AdvReac Type Severity Reaction Status Date / Time azithromycin Allergy Mild ALGY-Rash Verified 10/04/24 22:42 mirtazapine (From Remeron) Allergy Mild ALGY-Rash Verified 10/04/24 22:42 tolmetin Allergy ALGY-Rash Verified 10/04/24 22:42 Review of Systems General: Reports: 10 or more systems reviewed and unremarkable except in HPI a nd below PFSH ED PFSH: Medical History Chronic superficial gastritis without bleeding on EGD Hyperlipidemia LDL goal <70 CAD (coronary artery disease), [place] coronary artery 50% LAD on cardac cath 9.24 Ascending aorta dilatation 3.9cm on cardiac cath 9.24 Benign hypertension Shortness of breath on exertion Polypharmacy Tachycardia IBS (irritable bowel syndrome) Fibromyalgia Acquired hypothyroidism Headache, chronic migraine without aura, intractable Chronic low back pain GERD with esophagitis Tardive dyskinesia Chronic pancreatitis currently resolved Seronegative rheumatoid arthritis of both hands MDD (major depressive disorder) Inflammatory arthritis Depression with anxiety Joint pain High risk medication use Psychiatric care Surgical History Hx of cardiac cath 03/20 OZH 50% LAD Bariatric surgery status History of esophagogastroduodenoscopy (EGD) Hx of colonoscopy with polypectomy History of carpal tunnel surgery of right wrist 2023 Hx of breast biopsy right' X 2; both benign History of Titi-en-Y gastric bypass History of hysterectomy Hyst due to prolapse, no cancer; ovaries remaining History of cholecystectomy History of shoulder surgery bilateral; for frozen shoulders History of tonsillectomy and adenoidectomy Family History Mother Cancer Breast Cancer Migraines Hypertension Diabetes mellitus, type 2 Grandmother Cancer Colon Other Chronic kidney disease (CKD) Diabetes Hyperlipidemia Lung disease Rheumatoid arthritis Stroke Denies family history of Lupus CAD (coronary artery disease) Psoriatic arthritis Social History Smoking and tobacco/nicotine status: never used tobacco/nicotine Second hand smoke exposure: No Alcohol intake: never Substance/Drug Use: current Substance/Drug use frequency: few times a week Other substance/drug use details: Gummies Household members: none Marital status: Legally Number of children: 3 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 Reproductive History: Spontaneous abortions: No Physical Exam Const: COMMON NORMALS: no acute distress, average body habitus, patient oriented x3, no limitations, healthy appearing, alert and well nourished HENMT: COMMON NORMALS: normocephalic, atraumatic, hearing grossly normal bilaterally, external ears normal, Normal external nose present, moist oral mucous membranes and oropharynx normal HEAD & SCALP: normocephalic and atraumatic NOSE: Normal external nose present EXTERNAL EAR: Yes external ears normal Eye: COMMON NORMALS: Equal, round and reactive pupils present, EOMs intact bilaterally, conjunctivae normal and no scleral icterus CONJUNCTIVA: Yes conjunctivae normal PUPIL: Yes Equal, round and reactive pupils present Neck/C-Spine: COMMON NORMALS: full ROM, no lymphadenopathy, supple, no meningeal signs and no JVD Chest: COMMONS NORMALS: normal inspection of the chest and normal palpation of entire chest wall Resp: COMMON NORMALS: normal respiratory effort, No retractions, No use of accessory muscles and clear to auscultation bilaterally AUSCULTATION: clear to auscultation bilaterally Cardio: COMMON NORMALS: no JVD GI: COMMON NORMALS: Normal to inspection, nondistended, normoactive bowel sounds present, Soft to palpation, non-tender, No hepatosplenomegaly present and no masses PALPATION: Yes Soft to palpation and Yes No hepatosplenomegaly present Neuro: COMMON NORMALS: patient oriented x3 SENSORIUM/ORIENTATION: Yes alert MENINGEAL SIGNS: Yes no meningeal signs Course Vital Signs: Vital signs: Vital Signs Temperature 98.4 F 10/04/24 22:37 Pulse Rate 89 10/05/24 00:30 Respiratory Rate 14 10/05/24 00:30 Blood Pressure 145/102 10/05/24 00:30 Pulse Oximetry 99 10/05/24 00:30 Oxygen Delivery Me thod Room Air 10/05/24 00:11 MDM - Abdominal Pain Medical Decision Making Yesterday's note,, lab work, imaging etc. was reviewed. I do not repeat any lab today. We did give the patient a GI cocktail which seemed to help her epigastric area. 25 mg of Phenergan, 6 mg of Imitrex, 10 mg Decadron, 50 mg Benadryl, 60 mg Toradol, 40 mg Pepcid, this did reduce the patient's headache. Patient will be discharged home instructed to follow-up with her PCP on Tuesday for further evaluation treatment and possible referral to GI and/or neurology. Medical Records I reviewed the patient's medical records. Lab Data I reviewed the patient's lab results. All radiology interpretation(s) finalized by discharge Discharge Plan Discharge Patient Disposition: Home Clinical Impression: Abdominal pain, epigastric Migraine headache Qualifiers: Migraine type: unspecified Status migrainosus presence: without status migrainosus Intractability: not intractable Qualified Code(s): G43.909 - Migraine, unspecified, not intractable, without status migrainosus Condition: Stable Prescriptions: No Action nitroglycerin [Nitrostat] 0.4 mg tablet, sublingual 0.4 mg sublingual Q5M PRN (Reason: chest pain) Qty: 100 0RF Rx Instructions: do not exceed 3 doses per episode cyclobenzaprine 10 mg tablet 10 mg PO BID (DME) right custon night splint See Rx Instructions .Route .MEDSUPPLY Qty: 1 0RF Rx Instructions: As directed methotrexate sodium 2.5 mg tablet 10 mg PO .Q7days Qty: 60 1RF prednisone 5 mg tablet 5 mg PO DAILY Qty: 90 1RF prednisone 20 mg tablet See Rx Instructions PO .COMPLEX PRN (Reason: joint pain flare) Qty: 30 1RF Rx Instructions: take 1 or 2 tab daily for up to 7 days as needed for arthritis flare PO PRN; sulfasalazine 500 mg tablet 1 g PO BID Qty: 120 4RF Rx Instructions: take with food Humira Pen 40 mg/0.8 mL pen injector kit 40 mg SUBCUT Q14D Qty: 2 5RF isosorbide mononitrate 30 mg tablet extended release 24 hr 15 mg PO DAILY Qty: 45 3RF metoprolol succinate 25 mg tablet extended release 24 hr 12.5 mg PO .Q HS Qty: 45 3RF sucralfate 100 mg/mL suspension 10 ml PO TID Qty: 1000 1RF Qulipta 60 mg tablet 60 mg PO DAILY Qty: 60 5RF folic acid 800 mcg tablet 0.8 mg PO DAILY Qty: 1 0RF gabapentin 300 mg capsule See Rx Instructions PO .COMPLEX Qty: 90 4RF Rx Instructions: 300mg in am and 600mg at bedtime orally; Ingrezza 80 mg capsule 80 mg PO DAILY Qty: 30 2RF Vraylar 3 mg capsule 3 mg PO DAILY Qty: 30 2RF buspirone 15 mg tablet 15 mg PO BID Qty: 60 2RF cholecalciferol (vitamin D3) 25 mcg (1,000 unit) capsule 25 mcg PO DAILY Qty: 90 0RF nystatin 100,000 unit/gram cream 1 applic topical BID Qty: 30 1RF levothyroxine 75 mcg tablet 75 mcg PO DAILY Qty: 90 3RF Rx Instructions: TAKE 1 TABLET BY MOUTH EVERY DAY pantoprazole 40 mg tablet,delayed release (DR/EC) 40 mg PO BID Qty: 180 1RF Rx Instructions: TAKE ONE TABLET BY MOUTH TWICE DAILY albuterol sulfate 90 mcg/actuation aerosol powdr breath activated 2 inh inhalation Q6H PRN (Reason: shortness of breath or wheezing) Qty: 1 0RF ondansetron HCl 8 mg tablet 8 mg PO DAILY PRN (Reason: nausea and vomiting) Qty: 30 3RF Rx Instructions: TAKE ONE TABLET BY MOUTH DAILY topiramate 100 mg tablet 100 mg PO BID Qty: 60 5RF atorvastatin 40 mg tablet See Rx Instructions .ROUTE .COMPLEX Qty: 90 1RF Dose Instruction: TAKE 1 TABLET BY MOUTH EVERY DAY FOR 30 DAYS Rx Instructions: TAKE 1 TABLET BY MOUTH EVERY DAY FOR 30 DAYS duloxetine 60 mg capsule,delayed release(DR/EC) 60 mg PO DAILY Qty: 30 2RF Rx Instructions: take 1 capsule BY MOUTH EVERY DAY ondansetron 4 mg tablet,disintegrating 4 mg PO Q6H PRN (Reason: nausea and vomiting) Qty: 14 0RF Discharge Orders: Discharge ED (Routine); Ordered 10/05/24 Ordered By: Blaine Barragan Referrals: Sandra Zee MD [Primary Care Provider] - 1-3 days Patient Instructions: Abdominal Pain (ED), Headache - Migraine (Adult) Activity Restrictions/Additional Instructions: Please keep your appointment with Dr. Flores on Tuesday. You may benefit from medication adjustment. Please talk to her about referral to a GI doctor for your chronic abdominal pain and possibly neurologist for your migraines. Print Language: [place] Coding Level of Care Code ED Photograph Retoucher for Reji Ashton
[2024-10-04] MEDS: promethazine 25 mg/mL SDV 1 mL IM (23:21)
[2024-10-04] MEDS: lidocaine 2% viscous 15 ML, aluminum-mag hydrox-simethicon 30 ML, sucralfate oral liq 1 GM PO (23:21)
[2024-10-04] MEDS: SUMAtriptan 6 mg/0.5 mL SDV SUBCUT (23:58)
[2024-10-05 00:11] VITALS: BP 151/85; PULSE 96; RESP 21; O2SAT 99
[2024-10-05] MEDS: famotidine 20 mg Tablet 40 MG PO (00:23)
[2024-10-05] MEDS: dexamethasone 10 mg/mL INJ IM (00:24)
[2024-10-05] MEDS: diphenhydrAMINE 50 mg/mL SDV 1mL IM (00:26)
[2024-10-05 00:30] VITALS: BP 145/102; PULSE 89; RESP 14; O2SAT 99
[2024-10-05] MEDS: ketorolac 60 mg/2 mL INJ IM (01:05)
[2024-10-05] MEDS: ondansetron 2 mg/ML SDV 2 mL 4 MG IVP (01:23)
[2024-10-05 01:27] VITALS: BP 156/87; PULSE 96; O2SAT 97
== END 2024-10-05 01:36 | disposition home or self-care (01) ==
PROVIDERS: Emergency Provider Emergency Medicine; PCP Family Medicine
DX: R10.13 Epigastric pain (principal); G43.909 Migraine, unspecified, not intractable, without status migrainosus; I25.10 Atherosclerotic heart disease of native coronary artery without angina pectoris; E78.5 Hyperlipidemia, unspecified; I10 Essential (primary) hypertension
CPT/HCPCS: 36415; 96372; 96374; 99284; J1100; J1200; J1885; J2405; J2550; J3030; J9999

== ENCOUNTER 2024-10-07 13:11 | Emergency (ER) | payer MEDICARE, MEDICAID, SELFPAY ==
[2024-10-07 13:20] VITALS: BP 98/68; PULSE 106; RESP 16; TEMP 36.4; O2SAT 93; BMI 25.9
--- NOTE | 2024-10-07 13:50 | PC.PHAR ---
patient was just seen 4 days ago, everything still the same with home meds
--- NOTE | 2024-10-07 13:58 | USR_ITS ---
PROCEDURE INFORMATION: Exam: US Pelvis Limited, Bladder Exam date and time: 10/07/2024 2:36 PM Age: 59 years old Clinical indication: Other: No void for 30 hours; Prior surgery; Surgery date: 6+ months; Surgery type: Patient states she had mesh placed for her bladder in 1998 when she had hysterectomy TECHNIQUE: Imaging protocol: Real-time pelvic ultrasound (non-obstetric) with image documentation. Exam focused on the urinary bladder. COMPARISON: CT abdomen pelvis 10/03/2024 FINDINGS: Urinary bladder: There is suggestion of mild bladder wall thickening diffusely. Estimated bladder volume 28 mL. The lumen is unremarkable. Provider said postvoid measurements were not necessary. US/US bladder [id number] IMPRESSION: Mild bladder wall thickening diffusely which is nonspecific.
[2024-10-07 14:01] LABS: Basophils % 0.6 %; Eosinophils # 0.1 10^3/uL (0.0-0.8); Eosinophils % 1.2 %; Hematocrit 37.5 % (36-47); Lymphocytes % 13.7 %; Mean Corpuscular HGB Conc 31.2 g/dL (30-55); Mean Corpuscular Hemoglobin 32.1 pg (27-33); Mean Platelet Volume 11.9 fL (7.4-10.4); Monocytes # 0.5 10^3/uL (0.2-0.9); Monocytes % 6.6 %; Neutrophils # 5.38 10^3/uL (1.8-7.7); Neutrophils % 77.6 %; Nucleated Red Blood Cells % 0 %; Platelet Count 176 10^3/cmm (157-399); Red Blood Count 3.64 10^6/uL (3.85-5.65); Red Cell Distribution Width 14.3 % (12.1-15.1); White Blood Count 6.93 10^3/uL (3.29-11.43)
[2024-10-07 14:21] LABS: Alanine Aminotransferase 151 U/L (0-33); Albumin Level 3.6 g/dL (3.5-5.2); Alkaline Phosphatase 243 U/L (35-105); Anion Gap 14.8 (5-19); Aspartate Amino Transferase 399 U/L (0-32); Blood Urea Nitrogen 9 mg/dL (6-20); Calcium 8.9 mg/dL (8.5-10.5); Carbon Dioxide 22 mmol/L (22-29); Chloride 97 mmol/L (98-107); Creatinine Clr Calc Pharmacy 76.5565; Globulin 2.4 g/dL (1.3-4.6); Glomerular Filtration Rate 73.9 mL/min (90-130); Glucose 114 mg/dL (65-115); Osmolality Calculated 272 mOsm/kg (285-295); Sodium 131 mmol/L (136-145); Total Bilirubin 2.2 mg/dL (0.15-1.2)
[2024-10-07 14:23] LABS: Potassium 2.8 mmol/L (3.5-5.1)
--- NOTE | 2024-10-07 14:26 | W.ED.FEMALGU ---
HPI - Female Genitourinary General: Chief complaint: Urogenital-Female Stated complaint: unable to urinate Time Seen by Provider: 10/07/24 13:58 Source: patient Mode of arrival: ambulatory Limitations: no limitations History of Present Illness: Patient is a 59-year-old female with extensive past medical history and numerous visits to the ED recently, who arrives complaining of not being able to urinate. States that for 30 hours she has not voided, despite drinking significant amount of water. Notes pain in her back, but no other symptoms other than chronic abdominal pain for which she was recently worked up for. Denies any new medication regimens aside from the medications I was given in the ED. States that she has never had this issue before, does not have a history of chronic kidney disease. No fever, hematuria, chest pain, shortness of breath. States that she has dealt with incontinence issues before. MD elicited complaint: back pain and difficulty urinating Pertinent past history: urinary incontinence Onset (ago): day(s) Location of symptoms: low back Severity: mild Consistency: constant Vaginal discharge: none Vaginal bleeding: none Urinary symptoms: Difficulty Urinating Exacerbating factors: none Relieving factors: none Associated symptoms: Reports no associated symptoms; Deny abdominal pain, headache(s) or nausea Treatment prior to arrival: none Sexual activity: No Related Data Home Medications ?Medication ?Instructions ?Recorded ?Confirmed cyclobenzaprine 10 mg tablet 10 mg PO BID 05/14/24 10/07/24 Previous Rx's ?Medication ?Instructions ?Recorded cholecalciferol (vitamin D3) 25 25 mcg PO DAILY #90 caps 12/02/22 mcg (1,000 unit) capsule sucralfate 100 mg/mL oral 10 ml PO TID #1,000 mL 03/12/24 suspension nystatin 100,000 unit/gram topical 1 applic topical BID #30 grams 04/05/24 cream nitroglycerin 0.4 mg sublingual 0.4 mg sublingual Q5M PRN chest 04/12/24 tablet (Nitrostat) pain #100 tabs albuterol sulfate 90 mcg/actuation 2 inh inhalation Q6H PRN shortness 06/14/24 breath activated powder inhaler of breath or wheezing #1 ea levothyroxine 75 mcg tablet 75 mcg PO DAILY #90 tabs 06/14/24 pantoprazole 40 mg tablet,delayed 40 mg PO BID #180 tabs 06/14/24 release gabapentin 300 mg capsule See Rx Instructions PO .COMPLEX 08/06/24 #90 caps ondansetron HCl 8 mg tablet 8 mg PO DAILY PRN nausea and 08/13/24 vomiting #30 tabs topiramate 100 mg tablet 100 mg PO BID #60 tabs 08/13/24 folic acid 800 mcg tablet 0.8 mg PO DAILY #1 tab 08/14/24 right custon night splint #1 ea 08/22/24 atogepant 60 mg tablet (Qulipta) 60 mg PO DAILY #60 tabs 09/05/24 atorvastatin 40 mg tablet See Rx Instructions .Route 09/11/24 .COMPLEX #90 tabs buspirone 15 mg tablet 15 mg PO BID #60 tabs 09/17/24 cariprazine 3 mg capsule (Vraylar) 3 mg PO DAILY #30 caps 09/17/24 duloxetine 60 mg capsule,delayed 60 mg PO DAILY #30 caps 09/17/24 release valbenazine 80 mg capsule 80 mg PO DAILY #30 caps 09/17/24 (Ingrezza) isosorbide mononitrate 30 mg 15 mg (1/2 x 30 mg) PO DAILY #45 09/18/24 tablet,extended release 24 hr tabs metoprolol succinate 25 mg 12.5 mg (1/2 x 25 mg) PO .Q HS #45 09/18/24 tablet,extended release 24 hr tabs adalimumab 40 mg/0.8 mL 40 mg (0.8 mL) SUBCUT Q14D #2 ea 09/25/24 subcutaneous pen kit (Humira Pen) methotrexate sodium 2.5 mg tablet 10 mg (4 x 2.5 mg) PO .Q7days #60 09/25/24 tabs prednisone 20 mg tablet See Rx Instructions PO .COMPLEX 09/25/24 PRN joint pain flare #30 tabs prednisone 5 mg tablet 5 mg PO DAILY #90 tabs 09/25/24 sulfasalazine 500 mg tablet 1 g (2 x 500 mg) PO BID #120 tabs 09/25/24 ondansetron 4 mg disintegrating 4 mg PO Q6H PRN nausea and 10/03/24 tablet vomiting #14 tabs cefdinir 300 mg capsule 300 mg PO BID 7 days #14 caps 04/13/25 Allergies Allergy/AdvReac Type Severity Reaction Status Date / Time azithromycin Allergy Mild ALGY-Rash Verified 10/04/24 22:42 mirtazapine (From Remeron) Allergy Mild ALGY-Rash Verified 10/04/24 22:42 tolmetin Allergy ALGY-Rash Verified 10/04/24 22:42 Review of Systems General: Reports: 10 or more systems reviewed and unremarkable except in HPI and below Const: Denies: fever(s), chills, change in appetite, change in weight or diaphoresis ENMT: Denies: throat pain or hoarseness Card: Denies: chest pain, palpitations or lightheadedness Resp: Denies: dyspnea, productive cough or wheezing GI: Denies: abdominal pain, nausea, vomiting, diarrhea, constipation, bloating, change in stool character or hematochezia : Reports: difficulty voiding, oliguria and urinary incontinence; Denies: flank pain, dysuria or hematuria Musc: Reports: back pain; Denies: neck pain Skin/Breast: Denies: rash or new lesions Neuro: Denies: headache(s) or dizziness PFSH ED PFSH: Medical History Chronic superficial gastritis without bleeding on EGD Hyperlipidemia LDL goal <70 CAD (coronary artery disease), [place] coronary artery 50% LAD on cardac cath 03.20 Ascending aorta dilatation 3.9cm on cardiac cath 03.20 Benign hypertension Shortness of breath on exertion Polypharmacy Tachycardia IBS (irritable bowel syndrome) Fibromyalgia Acquired hypothyroidism Headache, chronic migraine without aura, intractable Chronic low back pain GERD with esophagitis Tardive dyskinesia Chronic pancreatitis currently resolved Seronegative rheumatoid arthritis of both hands MDD (major depressive disorder) Inflammatory arthritis Depression with anxiety Joint pain High risk medication use Psychiatric care Surgical History Hx of cardiac cath 03/20 OZH 50% LAD Bariatric surgery status History of esophagogastroduodenoscopy (EGD) Hx of colonoscopy with polypectomy History of carpal tunnel surgery of right wrist 2023 Hx of breast biopsy right' X 2; both benign History of Titi-en-Y gastric bypass History of hysterectomy Hyst due to prolapse, no cancer; ovaries remaining History of cholecystectomy History of shoulder surgery bilateral; for frozen shoulders History of tonsillectomy and adenoidectomy Family History Mother Cancer Breast Cancer Migraines Hypertension Diabetes mellitus, type 2 Grandmother Cancer Colon Other Chronic kidney disease (CKD) Diabetes Hyperlipidemia Lung disease Rheumatoid arthritis Stroke Denies family history of Lupus CAD (coronary artery disease) Psoriatic arthritis Social History Smoking and tobacco/nicotine status: never used tobacco/nicotine Second hand smoke exposure: No Alcohol intake: never Substance/Drug Use: current Substance/Drug use frequency: few times a week Other substance/drug use details: Bhargav Household members: none Marital status: Legally Number of children: 3 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 Reproductive History: Spontaneous abortions: No Physical Exam Const: COMMON NORMALS: no acute distress, average body habitus, patient oriented x3, no limitations, healthy appearing, alert and well nourished GENERAL APPEARANCE: cooperative and comfortable ORIENTATION/CONSCIOUSNESS: Yes awake HENMT: COMMON NORMALS: normocephalic, atraumatic, hearing grossly normal bilaterally, Normal external nose present, Normal nasal mucous membranes and turbinates present and moist oral mucous membranes HEAD & SCALP: normocephalic and atraumatic NOSE: Normal external nose present and Normal nasal mucous membranes and turbinates present Eye: COMMON NORMALS: Equal, round and reactive pupils present, EOMs intact bilaterally, conjunctivae normal and normal visual adames by confrontation CONJUNCTIVA: Yes conjunctivae normal PUPIL: Yes Equal, round and reactive pupils present Neck/C-Spine: COMMON NORMALS: full ROM, supple, no meningeal signs and no JVD Resp: COMMON NORMALS: normal respiratory effort, No retractions, No use of accessory muscles and clear to auscultation bilaterally AUSCULTATION: clear to auscultation bilaterally, no crackles, no rales, no rhonchi and no wheezes Cardio: COMMON NORMALS: no JVD, regular rate, regular rhythm, S1 normal heart sound present, S2 normal heart sound present, No gallops present (Cardio), No clicks present (Cardio), No murmurs present (Cardio), No rub (Cardio) and Peripheral pulses 2+ throughout RATE: regular rate RHYTHM: regular rhythm HEART SOUNDS: S1 normal heart sound present and S2 normal heart sound present PERIPHERAL PULSES: Peripheral pulses 2+ throughout GI: COMMON NORMALS: Normal to inspection, nondistended, normoactive bowel sounds present, Soft to palpation, non-tender, No hepatosplenomegaly present and no masses AUSCULTATION: Yes normoactive bowel sounds PALPATION: Yes Soft to palpation, No Guarding due to palpation present (GI), No Rigid due to palpation and Yes No hepatosplenomegaly present RECTAL EXAM: deferred : COMMON NORMALS: Yes no CVA tenderness BLADDER/KIDNEY EXAM: Yes no CVA tenderness Back/Pelvis: COMMON NORMALS: no CVA tenderness Extremity: COMMON NORMALS: normal to inspection and full ROM Neuro: COMMON NORMALS: patient oriented x3, moves all extremities, no focal motor deficits and no sensory deficits noted SENSORIUM/ORIENTATION: Yes alert MENINGEAL SIGNS: Yes no meningeal signs Psych: COMMON NORMALS: mental status grossly normal, cooperative and speech normal SPEECH: Yes normal speech Skin: COMMON NORMALS: no rashes or lesions noted GENERAL SKIN EXAM: no rashes or lesions noted Course Vital Signs: Vital signs: Vital Signs Temperature 97.5 F L 10/07/24 13:20 Pulse Rate 79 10/07/24 15:19 Respiratory Rate 16 10/07/24 15:19 Blood Pressure 120/73 10/07/24 15:19 Pulse Oximetry 96 10/07/24 15:19 Oxygen Delivery Me thod Room Air 10/07/24 15:19 MDM - Female Medical Decision Making Patient presented for infrequent urination for the past day. Seen here recently emergency department, had full workup including normal abdominal pelvis CT and unremarkable labs at that time. Here bladder ultrasound showed small amount of volume in the bladder, cath UA showing potential signs of infection with leukocytes and nitrate. Metabolic panel did show low potassium at 2.8, oral replacement was given and recheck just an hour or so later did show that it was coming up appropriately. Will not scan her with CT again as she just had a normal on couple days ago. She has follow-up with regular doctor tomorrow, told her to keep this appointment for reevaluation of her labs and she will be started on cefdinir for suspected UTI. Her vitals have been unremarkable throughout the ED stay, she has been calm and cooperative. Ultimately did tell her if she goes home and worsens to return immediately for further evaluation. Her kidney function was normal specifically on the metabolic panel. Discussed this case with Dr. Geiger who agrees with the disposition of this patient. Discussed this plan with the patient, she agrees and verbalized understanding to return precautions. Lab Data 10/07/24 13:55 10/07/24 15:40 Radiology Impressions Bladder Ultrasound 10/07/24 13:58 IMPRESSION: Mild bladder wall thickening diffusely which is nonspecific. Laboratory Results WBC 6.93 10^3/uL (3.29-11.43) 10/07/24 13:55 RBC 3.64 10^6/uL (3.85-5.65) L 10/07/24 13:55 Hgb 11.70 g/dL (11.27-16.99) 10/07/24 13:55 Hct 37.5 % (36-47) 10/07/24 13:55 MCV 103.0 fl (85-98) H 10/07/24 13:55 MCH 32.1 pg (27-33) 10/07/24 13:55 MCHC 31.2 g/dL (30-55) 10/07/24 13:55 RDW 14.3 % (12.1-15.1) 10/07/24 13:55 Plt Count 176 10^3/cmm (157-399) 10/07/24 13:55 MPV 11.9 fL (7.4-10.4) H 10/07/24 13:55 Neut % (Auto) 77.6 % 10/07/24 13:55 Lymph % (Auto) 13.7 % 10/07/24 13:55 [place] % (Auto) 6.6 % 10/07/24 13:55 Eos % (Auto) 1.2 % 10/07/24 13:55 Baso % (Auto) 0.6 % 10/07/24 13:55 Neut # (Auto) 5.38 10^3/uL (1.8-7.7) 10/07/24 13:55 Lymph # (Auto) 1.0 10^3/uL (0.8-4.8) 10/07/24 13:55 [place] # (Auto) 0.5 10^3/uL (0.2-0.9) 10/07/24 13:55 Eos # (Auto) 0.1 10^3/uL (0.0-0.8) 10/07/24 13:55 Baso # (Auto) 0.0 10^3/uL (0.0-0.1) 10/07/24 13:55 Nucleated RBC % (auto) 0 % 10/07/24 13: Nucleated RBCs # 0.0 /100WBC 10/07/24 13:55 Sodium 132 mmol/L (136-145) L 10/07/24 15:40 Potassium 3.0 mmol/L (3.5-5.1) L 10/07/24 15:40 Chloride 96 mmol/L (98-107) L 10/07/24 15:40 Carbon Dioxide 22 mmol/L (22-29) 10/07/24 15:40 Anion Gap 17.0 (5-19) 10/07/24 15:40 BUN 9 mg/dL (6-20) 10/07/24 15:40 Creatinine 0.8 mg/dL (0.5-0.9) 10/07/24 15:40 GFR Calculation 73.9 mL/min (90-130) L 10/07/24 15:40 Glucose 102 mg/dL (65-115) 10/07/24 15:40 Calculated Osmolality 273 mOsm/kg (285-295) L 10/07/24 15:40 Calcium 9.0 mg/dL (8.5-10.5) 10/07/24 15:40 Magnesium 1.6 mg/dL (1.7-2.3) L 10/07/24 13:55 Total Bilirubin 2.2 mg/dL (0.15-1.2) H 10/07/24 13:55 AST 399 U/L (0-32) H 10/07/24 13:55 ALT 151 U/L (0-33) H 10/07/24 13:55 Alkaline Phosphatase 243 U/L (35-105) H 10/07/24 13:55 Total Protein 6.0 g/dL (6.6-8.7) L 10/07/24 13:55 Albumin 3.6 g/dL (3.5-5.2) 10/07/24 13:55 Globulin 2.4 g/dL (1.3-4.6) 10/07/24 13:55 Urine Color [place] (Yellow) A 10/07/24 15:14 Urine Appearance Clear (CLEAR) 10/07/24 15:14 Urine pH 5 (5-7) 10/07/24 15:14 Ur Specific [place] 1.020 (1.005-1.030) 10/07/24 15:14 Urine Protein 1+ (Negative) H 10/07/24 15:14 Urine Glucose (UA) Norm (Normal) 10/07/24 15:14 Urine Ketones Negative (Negative) 10/07/24 15:14 Urine Blood Neg (Negative) 10/07/24 15:14 Urine Nitrate Positive (Negative) A 10/07/24 15:14 Urine Bilirubin 2+ (Negative) H 10/07/24 15:14 Urine Urobilinogen 4+ mg/dL (Negative) H 10/07/24 15:14 Ur Leukocyte Esterase 1+ (Negative) H 10/07/24 15:14 Urine RBC 0-2 /hpf (0-2) 10/07/24 15:14 Urine WBC 0-5 /hpf (0-5) 10/07/24 15:14 Ur Squamous Epith Cells 0-5 /hpf (0-5) 10/07/24 15:14 Amorphous Sediment Not Reportable 10/07/24 15:14 Urine Bacteria None seen /hpf (NONE) 10/07/24 15:14 Hyaline Casts 3.71 /lpf 10/07/24 15:14 Urine Mucus 1+ /hpf 10/07/24 15:14 Ethyl Alcohol < 10 mg/dL (0-10) 10/07/24 13:55 Hepatitis A IgM Ab Non-reactive (Nonreactive) 10/07/24 13:55 Hep Bs Antigen Non-reactive (Nonreactive) 10/07/24 13:55 Hep B Core IgM Ab Non-reactive (Nonreactive) 10/07/24 13:55 Hepatitis C Antibody Non-reactive (Nonreactive) 10/07/24 13:55 All radiology interpretation(s) finalized by discharge Discharge Plan Discharge Patient Disposition: Home Clinical Impression: Hypokalemia Urinary tract infection Qualifiers: Urinary tract infection type: acute cystitis Hematuria presence: without hematuria Qualified Code(s): N30.00 - Acute cystitis without hematuria Condition: Stable Prescriptions: New cefdinir 300 mg capsule 300 mg PO BID 7 Days Qty: 14 0RF No Action nitroglycerin [Nitrostat] 0.4 mg tablet, sublingual 0.4 mg sublingual Q5M PRN (Reason: chest pain) Qty: 100 0RF Rx Instructions: do not exceed 3 doses per episode cyclobenzaprine 10 mg tablet 10 mg PO BID (DME) right custon night splint See Rx Instructions .Route .MEDSUPPLY Qty: 1 0RF Rx Instructions: As directed methotrexate sodium 2.5 mg tablet 10 mg PO .Q7days Qty: 60 1RF prednisone 5 mg tablet 5 mg PO DAILY Qty: 90 1RF prednisone 20 mg tablet See Rx Instructions PO .COMPLEX PRN (Reason: joint pain flare) Qty: 30 1RF Rx Instructions: take 1 or 2 tab daily for up to 7 days as needed for arthritis flare PO PRN; sulfasalazine 500 mg tablet 1 g PO BID Qty: 120 4RF Rx Instructions: take with food Humira Pen 40 mg/0.8 mL pen injector kit 40 mg SUBCUT Q14D Qty: 2 5RF isosorbide mononitrate 30 mg tablet extended release 24 hr 15 mg PO DAILY Qty: 45 3RF metoprolol succinate 25 mg tablet extended release 24 hr 12.5 mg PO .Q HS Qty: 45 3RF sucralfate 100 mg/mL suspension 10 ml PO TID Qty: 1000 1RF Qulipta 60 mg tablet 60 mg PO DAILY Qty: 60 5RF folic acid 800 mcg tablet 0.8 mg PO DAILY Qty: 1 0RF gabapentin 300 mg capsule See Rx Instructions PO .COMPLEX Qty: 90 4RF Rx Instructions: 300mg in am and 600mg at bedtime orally; Ingrezza 80 mg capsule 80 mg PO DAILY Qty: 30 2RF Vraylar 3 mg capsule 3 mg PO DAILY Qty: 30 2RF buspirone 15 mg tablet 15 mg PO BID Qty: 60 2RF cholecalciferol (vitamin D3) 25 mcg (1,000 unit) capsule 25 mcg PO DAILY Qty: 90 0RF nystatin 100,000 unit/gram cream 1 applic topical BID Qty: 30 1RF levothyroxine 75 mcg tablet 75 mcg PO DAILY Qty: 90 3RF Rx Instructions: TAKE 1 TABLET BY MOUTH EVERY DAY pantoprazole 40 mg tablet,delayed release (DR/EC) 40 mg PO BID Qty: 180 1RF Rx Instructions: TAKE ONE TABLET BY MOUTH TWICE DAILY albuterol sulfate 90 mcg/actuation aerosol powdr breath activated 2 inh inhalation Q6H PRN (Reason: shortness of breath or wheezing) Qty: 1 0RF ondansetron HCl 8 mg tablet 8 mg PO DAILY PRN (Reason: nausea and vomiting) Qty: 30 3RF Rx Instructions: TAKE ONE TABLET BY MOUTH DAILY topiramate 100 mg tablet 100 mg PO BID Qty: 60 5RF atorvastatin 40 mg tablet See Rx Instructions .ROUTE .COMPLEX Qty: 90 1RF Dose Instruction: TAKE 1 TABLET BY MOUTH EVERY DAY FOR 30 DAYS Rx Instructions: TAKE 1 TABLET BY MOUTH EVERY DAY FOR 30 DAYS duloxetine 60 mg capsule,delayed release(DR/EC) 60 mg PO DAILY Qty: 30 2RF Rx Instructions: take 1 capsule BY MOUTH EVERY DAY ondansetron 4 mg tablet,disintegrating 4 mg PO Q6H PRN (Reason: nausea and vomiting) Qty: 14 0RF Discharge Orders: Discharge ED (Routine); Ordered 10/07/24 Ordered By: Vipin Rosenbaum Referrals: Sandra Zee MD [Primary Care Provider] - Patient Instructions: Urinary Tract Infection in Women (ED), Hypokalemia (ED) Activity Restrictions/Additional Instructions: Take the antibiotics for your UTI. Follow-up with regular doctor as planned tomorrow for close reevaluation. As mention your labs today showed some signs of low potassium, please keep in mind and if your condition worsens to please return to the ED immediately for reevaluation. Print Language: Mongolian Coding Level of Care Code ED Geological Aide for Reji Ashton
[2024-10-07 14:38] LABS: Magnesium 1.6 mg/dL (1.7-2.3)
[2024-10-07 14:45] LABS: Alcohol Level < 10 mg/dL (0-10)
[2024-10-07 15:11] LABS: Hepatitis A Antibody IgM Non-Reactive (Nonreactive); Hepatitis B Core IgM Non-Reactive (Nonreactive); Hepatitis B Surface Antigen Non-Reactive (Nonreactive); Hepatitis C Virus Antibody Non-Reactive (Nonreactive)
[2024-10-07] MEDS: potassium chloride ER 20 mEq Tablet 40 MEQ PO (15:16)
[2024-10-07 15:19] VITALS: BP 120/73; PULSE 79; RESP 16; O2SAT 96
[2024-10-07 15:22] LABS: Bacteria Urine None Seen /hpf; Hyaline Casts Urine 3.71 /lpf; RBC Urine 0-2 /hpf (0-2); Squamous Epithelial Cell Urine 0-5 /hpf (0-5); WBC Urine 0-5 /hpf (0-5)
[2024-10-07 15:25] LABS: Add Urine Microscopic? YES; Bilirubin Urine 2+ (Negative); Blood Urine Neg (Negative); Glucose Urine UA Norm (Normal); Ketones Urine Negative (Negative); Leukocyte Esterase Urine 1+ (Negative); Nitrate Urine Positive (Negative); Protein Urine 1+ (Negative); Urine Appearance Clear (CLEAR); Urine Color Orange (Yellow); Urobilinogen Urine 4+ mg/dL (Negative); pH Urine 5 (5-7)
[2024-10-07 15:31] LABS: Mucus Urine 1+ /hpf
[2024-10-07 16:04] LABS: Blood Urea Nitrogen 9 mg/dL (6-20); Carbon Dioxide 22 mmol/L (22-29); Chloride 96 mmol/L (98-107); Creatinine Clr Calc Pharmacy 76.5565; Glomerular Filtration Rate 73.9 mL/min (90-130); Glucose 102 mg/dL (65-115); Osmolality Calculated 273 mOsm/kg (285-295); Sodium 132 mmol/L (136-145)
[2024-10-07] MEDS: ondansetron 4 MG Tablet 8 MG PO (17:25)
[2024-10-07 17:26] VITALS: BP 124/74; PULSE 78; RESP 16; O2SAT 98
== END 2024-10-07 17:50 | disposition home or self-care (01) ==
PROVIDERS: Emergency Medicine; Emergency Provider Physician Assistant; PCP Family Medicine
DX: E87.6 Hypokalemia (principal); N30.00 Acute cystitis without hematuria; I25.10 Atherosclerotic heart disease of native coronary artery without angina pectoris; I10 Essential (primary) hypertension
CPT/HCPCS: 36415; 76857; 80048; 80053; 80074; 80307; 81001; 83735; 85025; 99284; J9999; Q0162

== ENCOUNTER 2024-10-15 16:20 | Emergency (ER) | payer MEDICARE, MEDICAID, SELFPAY ==
[2024-10-15 16:20] VITALS: BP 129/89; PULSE 121; TEMP 37; O2SAT 98
--- NOTE | 2024-10-15 17:16 | ED_ITS ---
HPI - Chest Pain 2 General: Chief Complaint: Chest Pain Stated Complaint: chest pain, sob Time Seen by Provider: 10/15/24 17:11 History of Present Illness: 59-year-old female presents with some ch est tightness and shortness of breath has been gone for couple hours. Feels like she is having hard time especially with any exertion. Patient denies fever or chills. Associated symptoms: Reports dyspnea; Deny abdominal pain, fever(s), nausea or vomiting Related Data Home Medications ?Medication ?Instructions ?Recorded ?Confirmed cyclobenzaprine 10 mg tablet 10 mg PO BID 05/14/24 Previous Rx's ?Medication ?Instructions ?Recorded cholecalciferol (vitamin D3) 25 25 mcg PO DAILY #90 ca ps 12/02/22 mcg (1,000 unit) capsule sucralfate 100 mg/mL oral 10 ml PO TID #1,000 mL 03/12 suspension nystatin 100,000 unit/gram topical 1 applic topical BI D #30 grams 04/05/24 cream nitroglycerin 0.4 mg sublingual 0.4 mg sublingual Q5M PRN chest 04/12/24 tablet (Nitrostat) pain #100 tabs albuterol sulfate 90 mcg/actuation 2 inh inhalation Q6 H PRN shortness 06/14/24 breath activated powder inhaler of breath or wheezing #1 ea levothyroxine 75 mcg tablet 75 mcg PO DAILY #90 tabs 1 08/15/23 pantoprazole 40 mg tablet,delayed 40 mg PO BID #180 ta bs 06/14/24 release gabapentin 300 mg capsule See Rx Instructions PO .COMP EULALIA 08/06/24 #90 caps ondansetron HCl 8 mg tablet 8 mg PO DAILY PRN nausea a nd 08/13/24 vomiting #30 tabs topiramate 100 mg tablet 100 mg PO BID #60 tabs 08/13 folic acid 800 mcg tablet 0.8 mg PO DAILY #1 tab 08/14 right custon night splint #1 ea 08/22/24 atogepant 60 mg tablet (Qulipta) 60 mg PO DAILY #60 ta bs 09/05/24 atorvastatin 40 mg tablet See Rx Instructions .Route 0 09/11/24 .COMPLEX #90 tabs buspirone 15 mg tablet 15 mg PO BID #60 tabs cariprazine 3 mg capsule (Vraylar) 3 mg PO DAILY #30 c aps 09/17/24 duloxetine 60 mg capsule,delayed 60 mg PO DAILY #30 ca ps 09/17/24 release valbenazine 80 mg capsule 80 mg PO DAILY #30 caps 08/26 10/19 (Ingrezza) isosorbide mononitrate 30 mg 15 mg (1/2 x 30 mg) PO DA ANAY #45 09/18/24 tablet,extended release 24 hr tabs metoprolol succinate 25 mg 12.5 mg (1/2 x 25 mg) PO .Q HS #45 09/18/24 tablet,extended release 24 hr tabs adalimumab 40 mg/0.8 mL 40 mg (0.8 mL) SUBCUT Q14D # 2 ea 09/25/24 subcutaneous pen kit (Humira Pen) methotrexate sodium 2.5 mg tablet 10 mg (4 x 2.5 mg) P O .Q7days #60 09/25/24 tabs prednisone 20 mg tablet See Rx Instructions PO .COMP EULALIA 09/25/24 PRN joint pain flare #30 tabs prednisone 5 mg tablet 5 mg PO DAILY #90 tabs 09/25 sulfasalazine 500 mg tablet 1 g (2 x 500 mg) PO BID #1 20 tabs 09/25/24 ondansetron 4 mg disintegrating 4 mg PO Q6H PRN nausea and 10/03/24 tablet vomiting #14 tabs Allergies Allergy/AdvReac Type Severity Reaction Status Date / Time azithromycin Allergy Mild ALGY-Rash Verified 10/15/24 16:31 mirtazapine (From Remeron) Allergy Mild ALGY-Rash Verified 10/15/24 16:31 tolmetin Allergy ALGY-Rash Verified 10/15/24 16:31 Review of Systems 2 Const: Denies: fever(s) or chills Card: Reports: chest pain Resp: Reports: dyspnea GI: Denies: abdominal pain, nausea or vomiting Skin/Breast: Denies: rash Neuro: Denies: headache(s) PFSH ED 2 PFSH: Medical History Chronic superficial gastritis without bleeding on EGD Hyperlipidemia LDL goal <70 CAD (coronary artery disease), [place] coronary artery 50% LAD on cardac cath 9.24 Ascending aorta dilatation 3.9cm on cardiac cath 03.20 Benign hypertension Shortness of breath on exertion Polypharmacy Tachycardia IBS (irritable bowel syndrome) Fibromyalgia Acquired hypothyroidism Headache, chronic migraine without aura, intractable Chronic low back pain GERD with esophagitis Tardive dyskinesia Chronic pancreatitis currently resolved Seronegative rheumatoid arthritis of both hands MDD (major depressive disorder) Inflammatory arthritis Depression with anxiety Joint pain High risk medication use Psychiatric care Surgical History Hx of cardiac cath 03/20 OZH 50% LAD Bariatric surgery status History of esophagogastroduodenoscopy (EGD) Hx of colonoscopy with polypectomy History of carpal tunnel surgery of right wrist 2023 Hx of breast biopsy right' X 2; both benign History of Titi-en-Y gastric bypass History of hysterectomy Hyst due to prolapse, no cancer; ovaries remaining History of cholecystectomy History of shoulder surgery bilateral; for frozen shoulders History of tonsillectomy and adenoidectomy Family History Mother Cancer Breast Cancer Migraines Hypertension Diabetes mellitus, type 2 Grandmother Cancer Colon Other Chronic kidney disease (CKD) Diabetes Hyperlipidemia Lung disease Rheumatoid arthritis Stroke Denies family history of Lupus CAD (coronary artery disease) Psoriatic arthritis Social History Smoking and tobacco/nicotine status: never used tobacco/nicotine Second hand smoke exposure: No Alcohol intake: never Substance/Drug Use: current Substance/Drug use frequency: few times a week Other substance/drug use details: [place] Household members: none Marital status: Legally Number of children: 3 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 Reproductive History: Spontaneous abortions: No Physical Exam 2 Const: COMMON NORMALS: no acute distress, patient oriented x3 and alert Resp: AUSCULTATION: wheezes (Mild diffuse) expiratory wheezes and diminished lung sounds Cardio: COMMON NORMALS: regular rhythm RATE: tachycardic RHYTHM: regular rhythm GI: COMMON NORMALS: Soft to palpation and non-tender PALPATION: Yes Soft to palpation Neuro: COMMON NORMALS: patient oriented x3, moves all extremities and no focal motor deficits SENSORIUM/ORIENTATION: Yes alert Psych: COMMON NORMALS: mental status grossly normal, cooperative and normal affect Course 2 Vital Signs: Vital signs: Vital Signs Temperature 98.6 F 10/15/24 16:20 Pulse Rate 121 H 10/15/24 18:43 Respiratory Rate 16 10/15/24 18:43 Blood Pressure 138/89 10/15/24 18:43 Pulse Oximetry 100 10/15/24 18:43 Oxygen Delivery Me thod Room Air 10/15/24 18:43 MDM - Chest Pain Medical Decision Making Patient's diagnostic studies were ordered and reviewed. Patient is EKG x 2 shows sinus tachycardia but no acute ST changes or elevation noted. She had 2 negative troponins. Patient has a known history of tachycardia and was just recently placed on metoprolol extended release 12-1/2 daily. Patient was provided an additional 2.5 metoprolol in the ER and her heart rate slowed down her symptoms improved significantly. Did recommend she call her casual shoe inspector and ask if she can increase her metoprolol to 25 mg extended release daily. Patient is feeling much better and is ready to be discharged home. Lab Data 10/15/24 17:32 10/15/24 17:32 Radiology Impressions Chest X-Ray 10/15/24 17:16 IMPRESSION: No acute cardiopulmonary process. Laboratory Results WBC 4.57 10^3/uL (3.29-11.43) 10/15/24 17:32 RBC 4.16 10^6/uL (3.85-5.65) 10/15/24 17:32 Hgb 13.30 g/dL (11.27-16.99) 10/15/24 17:32 Hct 42.5 % (36-47) 10/15/24 17:32 MCV 102.2 fl (85-98) H 10/15/24 17:32 MCH 32.0 pg (27-33) 10/15/24 17:32 MCHC 31.3 g/dL (30-55) 10/15/24 17:32 RDW 13.7 % (12.1-15.1) 10/15/24 17:32 Plt Count 300 10^3/cmm (157-399) 10/15/24 17:32 MPV 10.9 fL (7.4-10.4) H 10/15/24 17:32 Neut % (Auto) 55.6 % 10/15/24 17:32 Lymph % (Auto) 35.9 % 10/15/24 17:32 [place] % (Auto) 5.7 % 10/15/24 17:32 Eos % (Auto) 1.1 % 10/15/24 17:32 Baso % (Auto) 1.5 % 10/15/24 17:32 Neut # (Auto) 2.54 10^3/uL (1.8-7.7) 10/15/24 17:32 Lymph # (Auto) 1.6 10^3/uL (0.8-4.8) 10/15/24 17:32 [place] # (Auto) 0.3 10^3/uL (0.2-0.9) 10/15/24 17:32 Eos # (Auto) 0.1 10^3/uL (0.0-0.8) 10/15/24 17:32 Baso # (Auto) 0.1 10^3/uL (0.0-0.1) 10/15/24 17:32 Nucleated RBC % (auto) 0 % 10/15/24 17:32 Nucleated RBCs # 0.0 /100WBC 10/15/24 17:32 D-Dimer 0.48 ug/mLFEU (0-0.59) 10/15/24 17:32 Sodium 142 mmol/L (136-145) 10/15/24 17:32 Potassium 3.5 mmol/L (3.5-5.1) 10/15/24 17:32 Chloride 106 mmol/L (98-107) 10/15/24 17:32 Carbon Dioxide 22 mmol/L (22-29) 10/15/24 17:32 Anion Gap 17.5 (5-19) 10/15/24 17:32 BUN 6 mg/dL (6-20) 10/15/24 17:32 Creatinine 0.9 mg/dL (0.5-0.9) 10/15/24 17:32 GFR Calculation 64.5 mL/min (90-130) L 10/15/24 17:32 Glucose 107 mg/dL (65-115) 10/15/24 17:32 Calculated Osmolality 292 mOsm/kg (285-295) 10/15/24 17:32 Calcium 9.3 mg/dL (8.5-10.5) 10/15/24 17:32 Total Bilirubin 0.5 mg/dL (0.15-1.2) 10/15/24 17:32 AST 19 U/L (0-32) 10/15/24 17:32 ALT 17 U/L (0-33) 10/15/24 17:32 Alkaline Phosphatase 148 U/L (35-105) H 10/15/24 17:32 Troponin T Baseline 13 ng/L (0-10) H 10/15/24 17:32 Troponin T 120 Minute 9.43 ng/L (0-10) 10/15/24 19:13 Delta Troponin T -3.57 ABS# (0-10) L 10/15/24 19:13 Total Protein 6.0 g/dL (6.6-8.7) L 10/15/24 17:32 Albumin 3.9 g/dL (3.5-5.2) 10/15/24 17:32 Globulin 2.1 g/dL (1.3-4.6) 10/15/24 17:32 All radiology interpretation(s) finalized by discharge Discharge Plan Discharge Condition: Stable Prescriptions: No Action nitroglycerin [Nitrostat] 0.4 mg tablet, sublingual 0.4 mg sublingual Q5M PRN (Reason: chest pain) Qty: 100 0RF Rx Instructions: do not exceed 3 doses per episode cyclobenzaprine 10 mg tablet 10 mg PO BID (DME) right custon night splint See Rx Instructions .Route .MEDSUPPLY Qty: 1 0RF Rx Instructions: As directed methotrexate sodium 2.5 mg tablet 10 mg PO .Q7days Qty: 60 1RF prednisone 5 mg tablet 5 mg PO DAILY Qty: 90 1RF prednisone 20 mg tablet See Rx Instructions PO .COMPLEX PRN (Reason: joint pain flare) Qty: 30 1RF Rx Instructions: take 1 or 2 tab daily for up to 7 days as needed for arthritis flare PO PRN; sulfasalazine 500 mg tablet 1 g PO BID Qty: 120 4RF Rx Instructions: take with food Humira Pen 40 mg/0.8 mL pen injector kit 40 mg SUBCUT Q14D Qty: 2 5RF isosorbide mononitrate 30 mg tablet extended release 24 hr 15 mg PO DAILY Qty: 45 3RF metoprolol succinate 25 mg tablet extended release 24 hr 12.5 mg PO .Q HS Qty: 45 3RF sucralfate 100 mg/mL suspension 10 ml PO TID Qty: 1000 1RF Qulipta 60 mg tablet 60 mg PO DAILY Qty: 60 5RF folic acid 800 mcg tablet 0.8 mg PO DAILY Qty: 1 0RF gabapentin 300 mg capsule See Rx Instructions PO .COMPLEX Qty: 90 4RF Rx Instructions: 300mg in am and 600mg at bedtime orally; Ingrezza 80 mg capsule 80 mg PO DAILY Qty: 30 2RF Vraylar 3 mg capsule 3 mg PO DAILY Qty: 30 2RF buspirone 15 mg tablet 15 mg PO BID Qty: 60 2RF cholecalciferol (vitamin D3) 25 mcg (1,000 unit) capsule 25 mcg PO DAILY Qty: 90 0RF nystatin 100,000 unit/gram cream 1 applic topical BID Qty: 30 1RF levothyroxine 75 mcg tablet 75 mcg PO DAILY Qty: 90 3RF Rx Instructions: TAKE 1 TABLET BY MOUTH EVERY DAY pantoprazole 40 mg tablet,delayed release (DR/EC) 40 mg PO BID Qty: 180 1RF Rx Instructions: TAKE ONE TABLET BY MOUTH TWICE DAILY albuterol sulfate 90 mcg/actuation aerosol powdr breath activated 2 inh inhalation Q6H PRN (Reason: shortness of breath or wheezing) Qty: 1 0RF ondansetron HCl 8 mg tablet 8 mg PO DAILY PRN (Reason: nausea and vomiting) Qty: 30 3RF Rx Instructions: TAKE ONE TABLET BY MOUTH DAILY topiramate 100 mg tablet 100 mg PO BID Qty: 60 5RF atorvastatin 40 mg tablet See Rx Instructions .ROUTE .COMPLEX Qty: 90 1RF Dose Instruction: TAKE 1 TABLET BY MOUTH EVERY DAY FOR 30 DAYS Rx Instructions: TAKE 1 TABLET BY MOUTH EVERY DAY FOR 30 DAYS duloxetine 60 mg capsule,delayed release(DR/EC) 60 mg PO DAILY Qty: 30 2RF Rx Instructions: take 1 capsule BY MOUTH EVERY DAY ondansetron 4 mg tablet,disintegrating 4 mg PO Q6H PRN (Reason: nausea and vomiting) Qty: 14 0RF Referrals: Sandra Zee MD [Primary Care Provider] - Print Language: Wolof Coding Level of Care Code ED Manager Intensive Care Unit for Berthag Poli
--- NOTE | 2024-10-15 17:16 | ECG_ITS ---
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 Measurements Intervals [place] Rate: 120 P: 63 NH: 128 QRS: 48 QRSD: 82 T: 33 QT: 305 QTc: 433 Interpretive Statements SINUS TACHYCARDIA MODERATE ST DEPRESSION [0.05+ mV ST DEPRESSION] INTERPRETATION BASED ON A DEFAULT AGE OF 40 YEARS Compared to ECG 10/03/2024 11:49:48 ST (T wave) deviation now present T-wave abnormality no longer present Electronically Signed On 10-15-2024 18:50:53 CDT by Neftali Holloway M.D. [id number]
--- NOTE | 2024-10-15 17:16 | XRR_ITS ---
PROCEDURE INFORMATION: Exam: XR Chest Exam date and time: 10/15/2024 5:19 PM Age: 59 years old Clinical indication: Shortness of breath; Prior surgery; Surgery date: 6+ months; Surgery type: Gastric bypass; Additional info: SOB TECHNIQUE: Imaging protocol: Radiologic exam of the chest. Views: 1 view. COMPARISON: CR XR chest 1V portable [id number] 10/03/2024 10:15 AM FINDINGS: Lungs: Lungs are clear bilaterally. Pleural spaces: No pleural effusion. No pneumothorax. Heart/Mediastinum: The cardiac silhouette and mediastinal contours are unremarkable. Bones/joints: Unremarkable for age. XR/XR chest 1V portable [id number] IMPRESSION: No acute cardiopulmonary process.
[2024-10-15] MEDS: aspirin 81 mg Chew Tablet 324 MG PO (17:23)
[2024-10-15] MEDS: ipratropium-albuterol 3 mL Neb INHALATION (17:33)
[2024-10-15 17:35] VITALS: PULSE 98; RESP 24; O2SAT 95
[2024-10-15 17:40] VITALS: PULSE 116
[2024-10-15 17:40] LABS: Basophils # 0.1 10^3/uL (0.0-0.1); Basophils % 1.5 %; Eosinophils # 0.1 10^3/uL (0.0-0.8); Eosinophils % 1.1 %; Hematocrit 42.5 % (36-47); Lymphocytes # 1.6 10^3/uL (0.8-4.8); Lymphocytes % 35.9 %; Mean Corpuscular HGB Conc 31.3 g/dL (30-55); Mean Corpuscular Volume 102.2 fl (85-98); Mean Platelet Volume 10.9 fL (7.4-10.4); Monocytes # 0.3 10^3/uL (0.2-0.9); Monocytes % 5.7 %; Neutrophils # 2.54 10^3/uL (1.8-7.7); Neutrophils % 55.6 %; Nucleated Red Blood Cells % 0 %; Platelet Count 300 10^3/cmm (157-399); Red Blood Count 4.16 10^6/uL (3.85-5.65); Red Cell Distribution Width 13.7 % (12.1-15.1); White Blood Count 4.57 10^3/uL (3.29-11.43)
[2024-10-15 17:50] VITALS: PULSE 110; RESP 16; O2SAT 99
[2024-10-15 17:59] LABS: D Dimer 0.48 ug/mLFEU (0-0.59)
[2024-10-15 18:01] LABS: Alanine Aminotransferase 17 U/L (0-33); Albumin Level 3.9 g/dL (3.5-5.2); Alkaline Phosphatase 148 U/L (35-105); Anion Gap 17.5 (5-19); Aspartate Amino Transferase 19 U/L (0-32); Blood Urea Nitrogen 6 mg/dL (6-20); Calcium 9.3 mg/dL (8.5-10.5); Carbon Dioxide 22 mmol/L (22-29); Chloride 106 mmol/L (98-107); Creatinine Clr Calc Pharmacy 69.8284; Globulin 2.1 g/dL (1.3-4.6); Glomerular Filtration Rate 64.5 mL/min (90-130); Glucose 107 mg/dL (65-115); Osmolality Calculated 292 mOsm/kg (285-295); Potassium 3.5 mmol/L (3.5-5.1); Sodium 142 mmol/L (136-145); Total Bilirubin 0.5 mg/dL (0.15-1.2)
[2024-10-15 18:06] LABS: Troponin(5th) Baseline 13 ng/L (0-10)
[2024-10-15 18:43] VITALS: BP 138/89; PULSE 121; RESP 16; O2SAT 100
--- NOTE | 2024-10-15 19:16 | ECG_ITS ---
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 Measurements Intervals [place] Rate: 107 P: 61 PA: 135 QRS: 28 QRSD: 86 T: 22 QT: 335 QTc: 449 Interpretive Statements SINUS TACHYCARDIA MINIMAL ST DEPRESSION [0.025+ mV ST DEPRESSION] ABNORMAL RHYTHM ECG Compared to ECG 10/15/2024 16:26:47 No significant changes Electronically Signed On 10-17-2024 08:47:58 CDT by Neftali Holloway M.D. [email or web address]
[2024-10-15 19:43] LABS: Troponin 5 2HR 9.43 ng/L (0-10)
[2024-10-15] MEDS: metoprolol tartrate 1 mg/1 mL SDV 5 mL 2.5 MG IVP (19:48)
[2024-10-15 19:51] LABS: Troponin 5 2HR Delta -3.57 ABS# (0-10)
[2024-10-15 21:03] VITALS: BP 112/81; PULSE 81; O2SAT 100
== END 2024-10-15 21:08 | disposition home or self-care (01) ==
PROVIDERS: Emergency Provider Student in an Organized Health Care Education/Training Program; PCP Family Medicine
DX: R00.0 Tachycardia, unspecified (principal); I25.10 Atherosclerotic heart disease of native coronary artery without angina pectoris; I10 Essential (primary) hypertension; E78.5 Hyperlipidemia, unspecified; R06.02 Shortness of breath; R07.89 Other chest pain
CPT/HCPCS: 36415; 71045; 80053; 84484; 85025; 85378; 93005; 94640; 96374; 99285; J3490; J9999

== ENCOUNTER → 2024-10-22 13:43 | Outpatient (BNVA) | payer OTHER, SELFPAY | PROVIDERS: PCP Family Medicine; Visit Provider Nurse Practitioner | DX: F31.9 Bipolar disorder, unspecified (principal); F41.1 Generalized anxiety disorder | CPT/HCPCS: 80061; 83036 ==

== ENCOUNTER → 2024-11-01 13:48 | Outpatient (BNVA) | payer MEDICARE, MEDICAID, SELFPAY ==
[2024-10-29 15:53] VITALS: BP 105/79; BMI 26.1
== END ==
PROVIDERS: PCP Family Medicine; Visit Provider Student in an Organized Health Care Education/Training Program
DX: R10.32 Left lower quadrant pain (principal)
CPT/HCPCS: 99213

== ENCOUNTER → 2024-11-07 10:04 | Outpatient (BNVA) | payer MEDICARE, MEDICAID, SELFPAY ==
[2024-10-29 15:53] VITALS: BP 105/79; BMI 26.1
== END ==
PROVIDERS: PCP Family Medicine; Visit Provider Nurse Practitioner Family
DX: I25.119 Atherosclerotic heart disease of native coronary artery with unspecified angina pectoris (principal); R07.2 Precordial pain; Z79.899 Other long term (current) drug therapy; R00.0 Tachycardia, unspecified; I10 Essential (primary) hypertension; R06.02 Shortness of breath; I95.9 Hypotension, unspecified
CPT/HCPCS: 99214

== ENCOUNTER → 2024-11-26 13:21 | Outpatient (BNVA) | payer MEDICARE, SELFPAY ==
[2024-11-26 14:25] VITALS: BP 105/79; BMI 26.1
== END ==
PROVIDERS: PCP Family Medicine; Visit Provider Internal Medicine Rheumatology
DX: M54.41 Lumbago with sciatica, right side (principal); M54.42 Lumbago with sciatica, left side; G89.29 Other chronic pain; M06.041 Rheumatoid arthritis without rheumatoid factor, right hand; M06.042 Rheumatoid arthritis without rheumatoid factor, left hand; R76.8 Other specified abnormal immunological findings in serum; Z79.899 Other long term (current) drug therapy
CPT/HCPCS: 99214

== ENCOUNTER 2024-12-04 10:09 | Outpatient (CLI) | payer MEDICARE, MEDICAID, SELFPAY ==
[2024-10-29 15:53] VITALS: BP 105/79; BMI 26.1
[2024-11-26 14:25] VITALS: BP 105/79; BMI 26.1
[2024-12-04 10:33] VITALS: BMI 27.4
--- NOTE | 2024-12-04 10:34 | ECG_ITS ---
[employer] 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 Interpretive Statements Lung unchanged pre/post procedure; Intraprocedure shortess of breath; Symptoms resoled by discharge PROCEDURE: At the baseline, the EKG revealed normal sinus rhythm with a normal ST Ts. The baseline heart was 82 bpm with a blood pressue of 141/91 mm of Hg Lexiscan was infused over a period of 20 seconds. A total of 0.4 milligrams of Lexiscan was infused. The stress phase was continued for a total of 5 minutes. Heart rate at the end of the stress phase was 93 bpm with a blood pressure 122/80 mm of Hg. The EKG at the peak infusion revealed no significant changes. Sestamibi was injected 20 seconds after the Lexiscan infusion. Heart rate at the end of the recovery phase was 89 bpm with a blood pressure of 124/81 mm of Hg. CONCLUSION: 1. No significant EKG changes with the LexiScan infusion 2. No LexiScan induced chest pain or cardiac arrhythmia 3. Normal blood pressure and heart rate response 4. Sestamibi/sestamibi perfusion scan pending; see separate report. Electronically Signed On 12-05-2024 22:43:15 CDT by Neftali Holloway M.D. [email or web address]
--- NOTE | 2024-12-04 10:34 | NMCV_ITS ---
NM clarissa perf SPECT r/s* [id number] Harper Dailey Age: 59 Gender: F : 1965 Exam Date: 12/04/2024 11:15 Ordering Phys: Chiara James NP Technologist: EDGAR Mclaughlin Exam Location: [facility] Indications: cp STRESS TEST [facility] IMAGE PROTOCOL Rest/Stress 1 Lexiscan Day Radiopharmaceutical Dose (mCi) Administration Site Administered by Rest: Tc-99m 10.8 IV EDGAR Tang Sestamibi Stress:Tc-99m 32.5 IV EDGAR Tang Sestamibi Rest: 04-Dec-2024 60 Discovery 630 Stress: 04-Dec-2024 30 Discovery 630 0.4mg Lexiscan. Images obtained in supine and prone position. SPECT RESULTS Technical Quality: Good Raw Data Analysis: Normal Image Corrections: No attenuation or motion correction applied Summed Stress Score: 2 Summed Rest Score: 2 Summed Difference Score: 2 PERFUSION FINDINGS A very small area of moderately decreased tracer uptake is noted in the apical lateral segment. Complete reversibility was noted in this area. FUNCTIONAL RESULTS (calculated via Gated SPECT) Stress Image LV EF (%): 96 Stress EDV (mL):46 TID: 1 Stress ESV (mL):2 FUNCTIONAL FINDINGS: Segmental wall motion analysis revealing no gross wall motion abnormalities IMPRESSIONS 1. Myocardial perfusion imaging revealing a very small area of reversible defect in the apical lateral region suggesting ischemia in the distribution of the left circumflex artery. 2. Normal LV ejection fraction of 96%. 3. LV wall motion analysis revealing no gross wall motion abnormalities. 4. Normal LV volume Compared to the study from 03/22/2024, the ischemia appears to be new Dr Neftali Holloway MD [facility] (Electronically Signed) Final Date: 04 December 2024 13:01 S
[2024-12-04] MEDS: regadenoson 0.4 Mg/5 ml Syringe IVP (11:50)
[2024-12-04 12:02] VITALS: BP 124/81; PULSE 93
== END 2024-12-04 10:10 | disposition home or self-care (01) ==
LOC: CDL 10:10
PROVIDERS: PCP Family Medicine; Visit Provider Nurse Practitioner Family
DX: R07.9 Chest pain, unspecified (principal); R93.1 Abnormal findings on diagnostic imaging of heart and coronary circulation
CPT/HCPCS: 36415; 78452; 93017; 96374; A9500; J2785

== ENCOUNTER → 2024-12-05 10:54 | Outpatient (BNVA) | payer MEDICARE, MEDICAID, SELFPAY ==
[2024-11-26 14:25] VITALS: BP 105/79; BMI 26.1
== END ==
PROVIDERS: PCP Family Medicine; Visit Provider Psychiatry & Neurology Neurology
DX: G62.9 Polyneuropathy, unspecified (principal); Z79.899 Other long term (current) drug therapy; I10 Essential (primary) hypertension; G43.719 Chronic migraine without aura, intractable, without status migrainosus; M79.671 Pain in right foot; M79.672 Pain in left foot; R20.2 Paresthesia of skin
CPT/HCPCS: 36415; 82140; 82306; 82607; 82746; 83090; 83735; 83921; 84155; 84165; 86140; 86592; 99213

== ENCOUNTER → 2024-12-10 13:27 | Outpatient (BNVA) | payer MEDICARE, MEDICAID, SELFPAY ==
[2024-11-26 14:25] VITALS: BP 105/79; BMI 26.1
== END ==
PROVIDERS: PCP Family Medicine; Referring Provider Family Medicine; Visit Provider Anesthesiology Pain Medicine
DX: M51.369 Other intervertebral disc degeneration, lumbar region without mention of lumbar back pain or lower extremity pain (principal)
CPT/HCPCS: 72110; 99204

== ENCOUNTER 2024-12-17 09:15 | Oncology outpatient (recurring) (ONCR) | payer MEDICARE, MEDICAID, SELFPAY ==
[2024-11-26 14:25] VITALS: BP 105/79; BMI 26.1
[2024-12-17 09:46] LABS: Basophils # 0.1 10^3/uL (0.0-0.1); Basophils % 0.6 %; Eosinophils # 0.1 10^3/uL (0.0-0.8); Eosinophils % 0.6 %; Hematocrit 39.5 % (36-47); Lymphocytes # 3.9 10^3/uL (0.8-4.8); Lymphocytes % 46.4 %; Mean Corpuscular HGB Conc 30.1 g/dL (30-55); Mean Corpuscular Hemoglobin 31.1 pg (27-33); Mean Corpuscular Volume 103.1 fl (85-98); Mean Platelet Volume 11.7 fL (7.4-10.4); Monocytes # 0.3 10^3/uL (0.2-0.9); Monocytes % 3.5 %; Neutrophils # 3.96 10^3/uL (1.8-7.7); Neutrophils % 47.7 %; Nucleated Red Blood Cells % 0.2 %; Platelet Count 235 10^3/cmm (157-399); Red Blood Count 3.83 10^6/uL (3.85-5.65); Red Cell Distribution Width 15.3 % (12.1-15.1)
[2024-12-17 09:52] LABS: Erythrocyte Sedimentation Rate < 1 mm/hr (0-15)
[2024-12-17 10:04] LABS: Alanine Aminotransferase 31 U/L (0-33); Albumin Level 3.9 g/dL (3.5-5.2); Alkaline Phosphatase 74 U/L (35-105); Aspartate Amino Transferase 64 U/L (0-32); Bilirubin Direct 0.18 mg/dL (0.00-0.30); Glomerular Filtration Rate 51.2 mL/min (90-130); Total Bilirubin 0.4 mg/dL (0.15-1.2); Total Protein 5.9 g/dL (6.6-8.7)
== END 2024-12-24 23:59 | disposition home or self-care (01) ==
PROVIDERS: Internal Medicine Rheumatology; PCP Family Medicine; Visit Provider Internal Medicine
DX: D80.1 Nonfamilial hypogammaglobulinemia (principal); Z79.899 Other long term (current) drug therapy
CPT/HCPCS: 36415; 80076; 82565; 85025; 85651; 86140; 99204

== ENCOUNTER 2024-12-24 12:41 | Outpatient (RCR) | payer MEDICARE, MEDICAID, SELFPAY ==
[2024-11-26 14:25] VITALS: BP 105/79; BMI 26.1
== END 2024-12-24 23:59 | disposition home or self-care (01) ==
LOC: SPT 12:41
PROVIDERS: PCP Family Medicine; Visit Provider Anesthesiology Pain Medicine
DX: M47.816 Spondylosis without myelopathy or radiculopathy, lumbar region (principal); I25.119 Atherosclerotic heart disease of native coronary artery with unspecified angina pectoris; R00.0 Tachycardia, unspecified; I95.9 Hypotension, unspecified
CPT/HCPCS: 97161; 99214

== ENCOUNTER 2024-12-25 05:00 | Outpatient (RCR) | payer MEDICARE, MEDICAID, SELFPAY ==
[2024-11-26 14:25] VITALS: BP 105/79; BMI 26.1
== END 2025-01-24 23:59 | disposition home or self-care (01) ==
LOC: SPT 05:00
PROVIDERS: PCP Family Medicine; Visit Provider Anesthesiology Pain Medicine
DX: M47.816 Spondylosis without myelopathy or radiculopathy, lumbar region (principal); I25.119 Atherosclerotic heart disease of native coronary artery with unspecified angina pectoris; R00.0 Tachycardia, unspecified; I95.9 Hypotension, unspecified
CPT/HCPCS: 97110

== ENCOUNTER → 2025-01-02 10:50 | Outpatient (BNVA) | payer MEDICARE, MEDICAID, SELFPAY ==
[2024-11-26 14:25] VITALS: BP 105/79; BMI 26.1
== END ==
PROVIDERS: PCP Family Medicine; Visit Provider Family Medicine
DX: M25.571 Pain in right ankle and joints of right foot (principal)
CPT/HCPCS: 73610

== ENCOUNTER → 2025-01-08 14:02 | Outpatient (BNVA) | payer MEDICARE, MEDICAID, SELFPAY ==
[2024-11-26 14:25] VITALS: BP 105/79; BMI 26.1
== END ==
PROVIDERS: PCP Family Medicine; Visit Provider Family Medicine
DX: D48.5 Neoplasm of uncertain behavior of skin (principal)
CPT/HCPCS: 88305

== ENCOUNTER → 2025-01-22 09:59 | Outpatient (BNVA) | payer MEDICARE, MEDICAID, SELFPAY ==
[2024-11-26 14:25] VITALS: BP 105/79; BMI 26.1
== END ==
PROVIDERS: PCP Family Medicine; Visit Provider Internal Medicine Rheumatology
DX: M54.41 Lumbago with sciatica, right side (principal); M54.42 Lumbago with sciatica, left side; G89.29 Other chronic pain; M06.041 Rheumatoid arthritis without rheumatoid factor, right hand; M06.042 Rheumatoid arthritis without rheumatoid factor, left hand; R76.8 Other specified abnormal immunological findings in serum; Z79.899 Other long term (current) drug therapy
CPT/HCPCS: 36415; 80076; 82565; 85025; 85651; 86140; 86480; 99214

== ENCOUNTER 2025-01-25 05:00 | Outpatient (RCR) | payer MEDICARE, MEDICAID, SELFPAY ==
[2024-11-26 14:25] VITALS: BP 105/79; BMI 26.1
== END 2025-02-08 07:52 | disposition home or self-care (01) ==
LOC: SPT 05:00
PROVIDERS: PCP Family Medicine; Visit Provider Anesthesiology Pain Medicine
DX: M47.816 Spondylosis without myelopathy or radiculopathy, lumbar region (principal); I25.119 Atherosclerotic heart disease of native coronary artery with unspecified angina pectoris; R00.0 Tachycardia, unspecified; I95.9 Hypotension, unspecified
CPT/HCPCS: 97110

== ENCOUNTER → 2025-02-05 10:12 | Outpatient (BNVA) | payer MEDICARE, MEDICAID, SELFPAY ==
[2024-11-26 14:25] VITALS: BP 105/79; BMI 26.1
== END ==
PROVIDERS: PCP Family Medicine; Visit Provider Anesthesiology Pain Medicine
DX: M54.41 Lumbago with sciatica, right side (principal); M54.42 Lumbago with sciatica, left side; G89.29 Other chronic pain; M47.816 Spondylosis without myelopathy or radiculopathy, lumbar region
CPT/HCPCS: 99214

== ENCOUNTER → 2025-02-07 10:03 | Outpatient (BNVA) | payer MEDICARE, MEDICAID, SELFPAY ==
[2024-11-26 14:25] VITALS: BP 105/79; BMI 26.1
== END ==
PROVIDERS: PCP Family Medicine; Referring Provider Psychiatry & Neurology Neurology; Visit Provider Psychiatry & Neurology Neurology
DX: R20.2 Paresthesia of skin (principal); M79.671 Pain in right foot; M79.672 Pain in left foot; G62.9 Polyneuropathy, unspecified
CPT/HCPCS: 95911

== ENCOUNTER → 2025-03-18 14:56 | Outpatient (BNVA) | payer MEDICARE, SELFPAY ==
[2024-11-26 14:25] VITALS: BP 105/79; BMI 26.1
== END ==
PROVIDERS: PCP Family Medicine; Visit Provider Nurse Practitioner
DX: Z79.899 Other long term (current) drug therapy (principal)
CPT/HCPCS: 80061; 83036

== ENCOUNTER → 2025-03-21 15:11 | Outpatient (BNVA) | payer MEDICARE, MEDICAID, SELFPAY ==
[2024-11-26 14:25] VITALS: BP 105/79; BMI 26.1
== END ==
PROVIDERS: PCP Family Medicine; Visit Provider Internal Medicine Cardiovascular Disease
DX: I95.9 Hypotension, unspecified (principal); R00.0 Tachycardia, unspecified; I25.119 Atherosclerotic heart disease of native coronary artery with unspecified angina pectoris
CPT/HCPCS: 36415; 85025

== ENCOUNTER → 2025-04-01 14:46 | Outpatient (BNVA) | payer MEDICARE, MEDICAID, SELFPAY ==
[2025-03-25 15:18] VITALS: BP 105/67; BMI 26.6
== END ==
PROVIDERS: PCP Family Medicine; Visit Provider Internal Medicine Rheumatology
DX: M54.59 Other low back pain (principal); G89.29 Other chronic pain; M06.041 Rheumatoid arthritis without rheumatoid factor, right hand; M06.042 Rheumatoid arthritis without rheumatoid factor, left hand; R76.89 Other specified abnormal immunological findings in serum; Z79.899 Other long term (current) drug therapy; L71.0 Perioral dermatitis; K13.0 Diseases of lips; R53.82 Chronic fatigue, unspecified
CPT/HCPCS: 99214

== ENCOUNTER 2025-05-27 05:00 | Outpatient (RCR) | payer MEDICARE, MEDICAID, SELFPAY ==
[2025-03-25 15:18] VITALS: BP 105/67; BMI 26.6
== END 2025-06-26 23:59 | disposition home or self-care (01) ==
LOC: SPT 05:00
PROVIDERS: PCP Specialist; Visit Provider Specialist
DX: G62.89 Other specified polyneuropathies (principal); G57.30 Lesion of lateral popliteal nerve, unspecified lower limb
CPT/HCPCS: 97161

== ENCOUNTER → 2025-06-04 12:49 | Outpatient (BNVA) | payer MEDICARE, MEDICAID, SELFPAY ==
[2025-03-25 15:18] VITALS: BP 105/67; BMI 26.6
== END ==
PROVIDERS: PCP Family Medicine; Visit Provider Specialist
DX: G92.9 Unspecified toxic encephalopathy (principal); G62.89 Other specified polyneuropathies; F31.9 Bipolar disorder, unspecified; Z98.84 Bariatric surgery status
CPT/HCPCS: 82085; 82233; 82234; 82542; 82550; 82607; 82746; 83520; 84443; 85651; 99215

== ENCOUNTER 2025-06-13 14:27 | Outpatient (CLI) | payer MEDICARE, MEDICAID, SELFPAY ==
[2025-03-25 15:18] VITALS: BP 105/67; BMI 26.6
--- NOTE | 2025-06-13 14:30 | MR_ITS ---
WS: [id number] MRI BRAIN WITHOUT CONTRAST HISTORY: Fall with head injury 3 weeks ago. Confusion. COMPARISON: 12/23/2022 TECHNIQUE: Diffusion imaging, multiplanar T1, T2 and FLAIR imaging obtained. Tiny acute diffusion abnormality in the LEFT parietal white matter. No additional diffusion abnormalities are identified. Several new subcortical white matter lesions are noted bilaterally in the supratentorial brain that were not present on the prior study of 12/23/2022. No surrounding edema or mass effect. No susceptibility artifact. No significant volume loss. Normal hippocampal formation. Ventricles and extra-axial spaces are normal. No inferior displacement of cerebellar tonsils. The sella turcica and pituitary gland are unremarkable. Dural venous sinuses and [place] demonstrate no abnormality on this unenhanced studies. Paranasal sinuses: Clear. Mastoid air cells: Normal. Calvarium and scalp: Intact. MR/MR head wo con* [id number] IMPRESSION: 1. Tiny acute lacunar infarct in the anterior LEFT parietal lobe. 2. There are several new foci of increased T2 and FLAIR signal in the supraten torial brain that were not present on 12/23/2022. These findings are nonspecific but can be seen with small vessel disease, migraines, demyelination, hypertens ion and smoking history. 3. No significant atrophy. 4. Normal hippocampal formations.
== END 2025-06-13 14:28 | disposition home or self-care (01) ==
PROVIDERS: PCP Specialist; Visit Provider Specialist
DX: G57.30 Lesion of lateral popliteal nerve, unspecified lower limb (principal); R41.89 Other symptoms and signs involving cognitive functions and awareness; R90.89 Other abnormal findings on diagnostic imaging of central nervous system
CPT/HCPCS: 70551